=== PATIENT | male | born 1950 | race Caucasian/White ===

== ENCOUNTER → 2016-10-03 | Outpatient (CLI) | payer MEDICARE ==
[2016-10-03 07:57] LABS: Basophils # (A) 0.1 k/uL (0-0.2); Basophils % (A) 1 %; CH 32.3; CHCM 33.2; Eosinophils # (A) 0.3 k/uL (0-0.7); Eosinophils % (A) 3 %; HCT 52.3 % (39.0-53.0); HDW 2.14; HGB 17.6 gm/dL (13.0-17.5); Luc # (Auto) 0.21; Luc % (Auto) 2; Lymphocytes # (A) 2.6 k/uL (1.0-4.8); Lymphocytes % (A) 30 %; MCH 32.9 pg (25.0-35.0); MCHC 33.7 g/dL (31.0-37.0); MCV 97.8 fL (80.0-100.0); Mean Platelet Volume 8.8; Monocytes # (A) 0.6 k/uL (0-1.0); Monocytes % (A) 6 %; Neutrophils # (A) 5.2 k/uL (1.3-7.7); Neutrophils % (A) 58 %; RBC 5.35 m/uL (4.30-5.90); RDW 12.7 % (11.5-15.5); WBC 8.9 k/uL (3.8-10.6); WBC (Perox) 8.91
[2016-10-03 10:32] LABS: Hemoglobin A1C 5.1 % (4.2-6.1)
[2016-10-03 10:45] LABS: ALT 31 U/L (21-72); AST 24 U/L (17-59); Alkaline Phosphatase 83 U/L (38-126); Anion Gap 9 mmol/L; Blood Urea Nitrogen 11 mg/dL (9-20); Calcium 9.3 mg/dL (8.4-10.2); Carbon Dioxide 25 mmol/L (22-30); Chloride 106 mmol/L (98-107); Cholesterol 180 mg/dL (<200); Glucose 84 mg/dL (74-99); HDL Cholesterol 39 mg/dL (40-60); Non-African American GFR(MDRD) >60 (>60 ml/min/1.73 sqM); Potassium 4.6 mmol/L (3.5-5.1); Sodium 140 mmol/L (137-145); Total Bilirubin 0.6 mg/dL (0.2-1.3); Triglycerides 251 mg/dL (<150)
== END | disposition home or self-care (01) ==
LOC: LABWHC1 06:58
PROVIDERS: ATTEND Internal Medicine Critical Care Medicine
DX: Z00.00 Encounter for general adult medical examination without abnormal findings (principal); E78.5 Hyperlipidemia, unspecified; E55.9 Vitamin D deficiency, unspecified; Z12.5 Encounter for screening for malignant neoplasm of prostate
CPT/HCPCS: 84439; 80061; 80053; 83036; 84443; 85025; 82306; 36415; G0103

== ENCOUNTER 2017-03-09 20:24 | Emergency (ER) | payer MEDICARE ==
[2017-03-09 20:45] VITALS: TEMP 98
--- NOTE | 2017-03-09 21:00 | XR ---
EXAMINATION TYPE: XR chest 2V DATE OF EXAM: 03/09/2017 COMPARISON: NONE HISTORY: Concern for swallowing a chicken bone. TECHNIQUE: Frontal and lateral views of the chest are obtained. FINDINGS: There is no focal air space opacity, pleural effusion, or pneumothorax seen. The cardiac silhouette size is within normal limits. The osseous structures are intact. IMPRESSION: No acute cardiopulmonary process. No radiopaque foreign body.
--- NOTE | 2017-03-09 21:03 | XR ---
EXAMINATION TYPE: XR soft tissue neck DATE OF EXAM: 03/09/2017 COMPARISON: NONE HISTORY: Concern for swallowing a tic and bone TECHNIQUE: Frontal and lateral radiographs of the cervical spine were obtained. FINDINGS: Hyoid and thyroid calcifications are seen. Additionally elongated calcification is seen wit hin the prevertebral soft tissues at the level C6-C7 and may represent a foreign body or vascular mary ellen cification. This is not reproduced on the frontal image. Degenerative disc disease is also seen of th e cervical spine. No prevertebral soft tissue swelling. IMPRESSION: Questionable foreign body at the level C6-C7. CT neck could be performed for further eval uation.
--- NOTE | 2017-03-09 21:16 | ED ---
General Adult HPI - General Chief complaint: Skin/Abscess/Foreign Body Stated complaint: FB in throat Time Seen by Provider: 03/09/17 20:37 Source: patient Mode of arrival: ambulatory Limitations: no limitations - History of Present Illness Initial comments: This is a [age] male with no past medical history who presents emergency department for possible foreign body in his esophagus. The patient states he was eating chicken and felt a sharp sensation in his throat. He was concerned for a chicken bone. He states that he was able to swallow piece of bread afterwards however still had a sensation of pain when he swallowed so decided to come emergency department. He is handling his secretions well. He does not have any shortness of breath or any distress. No other complaints. - Related Data Home Medications Medication Instructions Recorded Confirmed Multivitamins, Thera [Multivitamin 1 tab PO DAILY 03/09/17 03/09/17 (formulary)] Allergies Allergy/AdvReac Type Severity Reaction Status Date / Time No Known Allergies Allergy Verified 07/14/14 09:21 Review of Systems ROS Statement: Those systems with pertinent positive or pertinent negative responses have been documented in the HPI. ROS Other: All systems not noted in ROS Statement are negative. Past Medical History Past Medical History: No Reported History History of Any Multi-Drug Resistant Organisms: None Reported Past Surgical History: Tonsillectomy Additional Past Surgical History / Comment(s): Plastic surgery right side of face at 6y.o. Past Anesthesia/Blood Transfusion Reactions: No Reported Reaction Past Psychological History: No Psychological Hx Reported Smoking Status: Current every day smoker Past Alcohol Use History: None Reported Past Drug Use History: None Reported General Exam - General Exam Comments Initial Comments: Constitutional: [Awake alert] [Appears comfortable] Head: [Normocephalic atraumatic] Eyes: [no conjunctival injection] [No scleral icterus] [EOMI] Neck: [No JVD] [Supple], points to the level of the manubrium for where he feels his form body is Heart: [Regular rate rhythm] [normal S1-S2] [no murmurs] Lungs: [Clear to auscultation bilaterally] [No wheezing] [No rales] Abdomen: [Soft] [nondistended] [nontender] Extremities: [Non edematous] [DP pulses intact] [Radial pulses intact] Neuro: [A&Ox3] [No focal neurologic deficits] Psych: [Appropriate mood and affect] Limitations: no limitations Course Vital Signs 03/09/17 03/09/17 20:40 22:00 Temperature 98.0 F Pulse Rate 83 77 Respiratory 16 18 Rate Blood Pressure 154/81 153/84 O2 Sat by Pulse 97 96 Oximetry - Reevaluation(s) Reevaluation #1: 03/09/17 21:[address] Dodge about x-ray findings of possible foreign body. He stated he wanted to have the endo team come in. Patient updated Medical Decision Making - Medical Decision Making This is a 67-year-old male came to the emergency department for suspected esophageal foreign body. X-rays showed possible foreign body of C6-C7 position. Dr. Dodge came in and performed an EGD at bedside and removed a chicken bone from the patient's esophagus. The patient had a slight cough after the procedure however otherwise felt improved. Patient was discharged home and told to follow-up with Dr. Dodge as needed. Can return emergency Department also as needed. All questions were answered. Disposition Clinical Impression: Esophageal foreign body Disposition: HOME SELF-CARE Condition: Stable Instructions: Esophageal Foreign Body (ED) Referrals: Eliseo Lazo DO [Primary Care Provider] - 1-2 days Neil Pascual MD [STAFF PHYSICIAN] - 1-2 days
[2017-03-09 22:22] VITALS: RESP 18
[2017-03-09] MEDS ORDERED: LIDOCAINE 1% INJ 10MG/ML (20 ML MDV) ONE (22:31)
[2017-03-09] MEDS ORDERED: PROPOFOL 10 MG/ML 20 ML VIAL IV ONE (22:31)
[2017-03-09] MEDS ORDERED: LACTATED RINGERS 1,000 ML IV ONE (22:32)
--- NOTE | 2017-03-09 23:27 | P.PCN ---
Date of Procedure: 03/09/17 Preoperative Diagnosis: Postoperative Diagnosis: Procedure(s) Performed: Procedure: Esophagogastroduodenoscopy and removal of esophageal foreign body. Preoperative diagnosis: Esophageal foreign body. Postoperative diagnosis: 1. A piece of chicken meat caught at the cricopharyngeus and advanced to the stomach and multiple fragments with the aid of the endoscope. 2. Wishbone caught at the same level just above the vocal cords captured with the rat tooth forceps and withdrawn by withdrawing the endoscope. Preparation sedation: Was provided by anesthesia. Brief clinical history: The patient is a 67-year-old male who came into the emergency room because of abnormal sensation he had in his throat while eating chicken. The patient felt like something was caught in his esophagus. He was able to swallow his secretions but the sensation was persistent and painful. No airway issues. X-ray performed suggested possible foreign body in the proximal esophagus. Procedure: With the patient on his left lateral decubitus position and after informed consent and adequate sedation, I passed the Olympus-GIF 160 video upper endoscope into the oropharynx down to the hypopharynx and through the area of the cricopharyngeus and into the esophagus. There was a piece of chicken caught at the cricopharyngeus level which I was able to advance with the endoscope in multiple fragments and pass it into the stomach. There was a hiatal hernia. The stomach has food debris and secretions and the pieces of meat that were just passed with the aid of the endoscope. No obvious abnormalities were seen the stomach. Pyloric channel, duodenal bulb, post bulbar area and descending duodenum did not show any obvious abnormalities either. The endoscope was withdrawn and I spent time inspecting the hypopharynx and I could see a piece of bone partially caught at the cricopharyngeus with a transverse part of it just at the level of the vocal cords visible in the hypopharynx. I captured that with the rat tooth forceps and withdrew it by withdrawing the endoscope without difficulty. I repeated the inspection of the esophagus including the area of the cricopharyngeus as well as the hypopharynx before the examination was completed. The patient tolerated the procedure. Plan: The patient was reassured. Will keep on clear liquid diet for the next 12 -24 hours that he can advance his diet as tolerated. Further plans based on his course. He will follow up with you as planned and he will call me if he has any problems. Implants: Indications for Procedure: Operative Findings: Description of Procedure:
[2017-03-10] MEDS ORDERED: CALCIUM CARBONATE 500 MG CHEWABLE PO STA (00:07)
[2017-03-10 02:34] VITALS: BP 118/71; PULSE 77
== END 2017-03-10 00:30 | disposition home or self-care (01) ==
LOC: EC 20:24
DX: T18.128A Food in esophagus causing other injury, initial encounter (principal); F17.200 Nicotine dependence, unspecified, uncomplicated; Z79.899 Other long term (current) drug therapy
CPT/HCPCS: 99283; 70360; 71020; 43247; J2001; J2704

== ENCOUNTER → 2017-04-09 | Outpatient (CLI) | payer MEDICARE | END | disposition home or self-care (01) | LOC: LABWHC1 07:07 | PROVIDERS: ATTEND Urology | DX: R97.20 Elevated prostate specific antigen [PSA] (principal) | CPT/HCPCS: 36415; 84153 ==

== ENCOUNTER → 2017-10-06 | Outpatient (CLI) | payer MEDICARE | END | disposition home or self-care (01) | LOC: LABWHC1 15:22 | PROVIDERS: ATTEND Urology | DX: R97.20 Elevated prostate specific antigen [PSA] (principal) | CPT/HCPCS: 36415; 84153 ==

== ENCOUNTER → 2017-10-30 | Outpatient (CLI) | payer MEDICARE ==
[2017-10-30 08:20] LABS: Basophils % (A) 0 %; Eosinophils # (A) 0.3 k/uL (0-0.7); Eosinophils % (A) 3 %; HCT 51.4 % (39.0-53.0); HGB 16.8 gm/dL (13.0-17.5); Lymphocytes # (A) 2.7 k/uL (1.0-4.8); Lymphocytes % (A) 32 %; MCH 31.2 pg (25.0-35.0); MCHC 32.7 g/dL (31.0-37.0); MCV 95.6 fL (80.0-100.0); Mean Platelet Volume 8.3; Monocytes # (A) 0.6 k/uL (0-1.0); Monocytes % (A) 7 %; Neutrophils # (A) 4.8 k/uL (1.3-7.7); Neutrophils % (A) 56 %; Platelet Count 220 k/uL (150-450); RBC 5.38 m/uL (4.30-5.90); RDW 12.5 % (11.5-15.5); WBC 8.5 k/uL (3.8-10.6)
[2017-10-30 08:32] LABS: ALT 21 U/L (21-72); AST 22 U/L (17-59); Albumin 3.7 g/dL (3.5-5.0); Alkaline Phosphatase 76 U/L (38-126); Anion Gap 12 mmol/L; Blood Urea Nitrogen 15 mg/dL (9-20); Carbon Dioxide 24 mmol/L (22-30); Chloride 105 mmol/L (98-107); Cholesterol 171 mg/dL (<200); Glucose 85 mg/dL (74-99); HDL Cholesterol 35 mg/dL (40-60); LDL Cholesterol,Calculated 89 mg/dL (0-99); Potassium 4.4 mmol/L (3.5-5.1); Sodium 141 mmol/L (137-145); Total Bilirubin 0.6 mg/dL (0.2-1.3); Total Protein 6.7 g/dL (6.3-8.2); Triglycerides 237 mg/dL (<150)
[2017-10-30 17:48] LABS: Hemoglobin A1C 4.9 % (4.0-6.0)
== END | disposition home or self-care (01) ==
LOC: LABWHC1 07:40
PROVIDERS: ATTEND Internal Medicine Critical Care Medicine
DX: Z00.00 Encounter for general adult medical examination without abnormal findings (principal); J44.9 Chronic obstructive pulmonary disease, unspecified; E78.5 Hyperlipidemia, unspecified; E55.9 Vitamin D deficiency, unspecified
CPT/HCPCS: 36415; 80053; 80061; 82306; 83036; 84439; 84443; 85025

== ENCOUNTER → 2017-12-23 | Outpatient (CLI) | payer MEDICARE ==
[2017-12-23 10:24] LABS: Blood Urea Nitrogen 14 mg/dL (9-20)
== END | disposition home or self-care (01) ==
LOC: LABWHC1 09:06
PROVIDERS: ATTEND Urology
DX: C61 Malignant neoplasm of prostate (principal)
CPT/HCPCS: 36415; 82565; 84520

== ENCOUNTER → 2018-05-12 | Outpatient (CLI) | payer MEDICARE ==
[2018-05-12 11:31] LABS: Basophils % (A) 1 %; Eosinophils # (A) 0.1 k/uL (0-0.7); Eosinophils % (A) 2 %; HCT 46.8 % (39.0-53.0); HGB 15.4 gm/dL (13.0-17.5); Lymphocytes # (A) 1.5 k/uL (1.0-4.8); Lymphocytes % (A) 21 %; MCH 31.9 pg (25.0-35.0); MCV 96.7 fL (80.0-100.0); Mean Platelet Volume 8.6; Monocytes # (A) 0.5 k/uL (0-1.0); Monocytes % (A) 7 %; Neutrophils # (A) 4.8 k/uL (1.3-7.7); Neutrophils % (A) 68 %; Platelet Count 216 k/uL (150-450); RBC 4.84 m/uL (4.30-5.90); RDW 13.3 % (11.5-15.5)
[2018-05-12 11:55] LABS: Anion Gap 11 mmol/L; Blood Urea Nitrogen 20 mg/dL (9-20); Calcium 9.3 mg/dL (8.4-10.2); Carbon Dioxide 23 mmol/L (22-30); Chloride 105 mmol/L (98-107); Glucose 82 mg/dL (74-99); Sodium 139 mmol/L (137-145)
[2018-05-12 11:59] LABS: Potassium 4.8 mmol/L (3.5-5.1)
== END | disposition home or self-care (01) ==
LOC: LABWHC1 09:48
PROVIDERS: ATTEND Urology
DX: Z01.818 Encounter for other preprocedural examination (principal); Z01.812 Encounter for preprocedural laboratory examination; C61 Malignant neoplasm of prostate; R31.0 Gross hematuria; R53.83 Other fatigue; Z79.899 Other long term (current) drug therapy
CPT/HCPCS: 80048; 85025; 87086; 93005

== ENCOUNTER 2018-05-20 06:09 | Day surgery (SDC) | payer MEDICARE ==
[2018-05-12 08:59] VITALS: BMI 30.3
[~2018-05-20 06:09] MED LIST: DEXAMETHASONE SOD PHOSPHATE 10 MG/ML 1 ML VIAL IV ONE; HYDROmorphone 1 MG/ML 1 ML SYRINGE IVP PRN; LEVOFLOXACIN 500MG-D5W PMX 500 MG in DEXTROSE/WATER 1 100ML.BAG IVPB ONE; LIDOCAINE 1% 20 ML VIAL (10MG/ML) FOR IV START INTRADERMA PRN; ONDANSETRON 4 MG/2 ML VIAL IVP ONE; SCOPOLAMINE 1.5MG/72HR PATCH TRANSDERM ONE
--- NOTE | 2018-05-20 06:18 | P.GSHP ---
History of Present Illness H&P Date: 05/20/18 Chief Complaint: Prostate Cancer The patient is a 68 year old white male with a family history of prostate cancer. His PSA level increased to 3.98. In view of this, he underwent a prostate ultrasound with biopsies, revealing a prostate volume of 41.1 mL. 9 of 12 biopsies revealed [place] 7 (3+4) prostate cancer. Treatment options were reviewed in detail, consisting primarily of radical prostatectomy or radiation therapy. He elected to be treated with combination radiation therapy , and received androgen deprivation therapy for downsizing. He has completed IMRT and now comes for brachytherapy. - Genitourinary (Male) Genitourinary: Reports urinary frequency Past Medical History Past Medical History: No Reported History Additional Past Medical History / Comment(s): prostate CA dx radiation tx-last radiation-last tx Apr.,pericarditis approx 25 yrs ago History of Any Multi-Drug Resistant Organisms: None Reported Past Surgical History: Tonsillectomy Additional Past Surgical History / Comment(s): Plastic surgery right side of face at 6y.o. Past Anesthesia/Blood Transfusion Reactions: No Reported Reaction Additional Past Anesthesia/Blood Transfusion Reaction / Comment(s): no hx blood transfusion Smoking Status: Current every day smoker - Past Family History Mother Family Medical History: Cancer Additional Family Medical History / Comment(s): breast Father Family Medical History: Cancer Additional Family Medical History / Comment(s): prostate Medications and Allergies Home Medications Medication Instructions Recorded Confirmed Type Calcium Carbonate/Vitamin D3 1 each PO BID 05/12/18 05/12/18 History [Calcium 600-Vit D3 400 Caplet] Ibuprofen/Diphenhydramine Cit 2 each PO HS PRN 05/12/18 05/12/18 History [Motrin Pm Caplet] Allergies Allergy/AdvReac Type Severity Reaction Status Date / Time shellfish derived [Shellfish] Allergy Rash/Hives Verified 05/12/18 08:45 Surgical - Exam - General well developed, well nourished, no distress - Respiratory normal respiratory effort - Abdomen Abdomen: soft, non tender, no guarding, no rigid, no rebound - Genitourinary normal penis with no external lesions, testicles non-tender - Rectum Rectum: normal sphincter tone, no masses, other (Prostate moderately enlarged and smooth) - Psychiatric oriented to time, oriented to person, oriented to place, speech is normal, memory intact Assessment and Plan (1) Adenocarcinoma of prostate Status: Acute Code(s): C61 - MALIGNANT NEOPLASM OF PROSTATE SNOMED Code(s): 229165232 Plan: The rationale for combination radiation therapy has been reviewed in detail with the patient. The brachytherapy procedure has been reviewed, as well as the anticipated perioperative course and potential risks. These include postoperative perineal discomfort, anesthesia, bleeding, urinary retention, seed migration, urethral stricture, and irritative voiding symptoms which may fail to resolve completely.
[2018-05-20] MEDS: LACTATED RINGERS 1,000 ML IV SCH ×4 (06:54→14:40)
[2018-05-20] MEDS: MIDAZOLAM 2 MG/2 ML VIAL IV ONE ×2 (07:05→07:13)
[2018-05-20] MEDS ORDERED: DEXAMETHASONE SOD PHOS (MDV) 100 MG/10 ML VIAL ONE (07:24)
[2018-05-20] MEDS ORDERED: LIDOCAINE 1% INJ 10MG/ML (20 ML MDV) ONE (07:24)
[2018-05-20] MEDS ORDERED: SUCCINYLCHOLINE CHLORIDE VIAL 200 MG/10 ML VIAL IV ONE (07:24)
[2018-05-20] MEDS ORDERED: GLYCOPYRROLATE 0.2 MG/ML 2 ML VIAL ONE (07:24)
[2018-05-20] MEDS ORDERED: ROCURONIUM BROMIDE 10 MG/ML 10 ML VIAL IV ONE (07:24)
[2018-05-20] MEDS ORDERED: PHENYLEPHRINE-0.9% NACL SYG 1 MG/10 ML SYRINGE ONE (07:24)
[2018-05-20] MEDS ORDERED: PROPOFOL 10 MG/ML 20 ML VIAL IV ONE (07:24)
[2018-05-20] MEDS ORDERED: NEOSTIGMINE 1 MG/ML 10 ML VIAL ONE (07:24)
[2018-05-20] MEDS ORDERED: fentaNYL (PF) 50 MCG/ML 2 ML AMP ONE (07:24)
[2018-05-20] MEDS ORDERED: LACTATED RINGERS 1,000 ML IV ONE (09:01)
[2018-05-20 09:56] VITALS: TEMP 98.7
--- NOTE | 2018-05-20 10:08 | P.OP ---
Date of Procedure: 05/20/18 Preoperative Diagnosis: Adenocarcinoma of the Prostate, Clinical Stage TIc NX M0 Postoperative Diagnosis: Same Procedure(s) Performed: Prostate Brachytherapy Anesthesia: NIKOLAS Surgeon: Richard Delacruz Community Health Program Representative #1: Luis Dupree Community Health Program Representative #2: Cristhian Lassiter Estimated Blood Loss (ml): 10 IV fluids (ml): 900 Pathology: none sent Condition: stable Disposition: PACU Indications for Procedure: The patient is a 68-year-old white male with recently diagnosed high-volume Bas[place] 3+4 adenocarcinoma of the prostate. He has elected to be treated with combination radiation therapy. He completed IMRT and now comes for brachytherapy. Operative Findings: 59 I-125 sources implanted via 20 needles. Description of Procedure: The patient was taken to the operating room and placed in the dorsolithotomy position, with his legs supported in Chandler stirrups. The external genitalia was prepped and draped sterilely. A Keller catheter was placed. The Siemens transrectal ultrasound probe was placed intrarectally, and the probe was then secured to the stabilizing brackets. The prostate was imaged on both the axial and sagittal planes. The 0 point was identified, and the position of the probe was manipulated until the prostate images were identical to those of the volume study. Each individual treatment needle was then placed through the perineum and into the prostate, starting with the most anterior needles and working in a posterior direction. The placement of each needle was guided by ultrasound, on both the axial and sagittal planes, to ensure accurate placement of the sources. A total of 59 I-125 sources were implanted via 20 needles. An additional 4 sources were ordered but not used. Real-time dosimetry was utilized throughout the procedure to assess radiation dosage. Once the procedure was completed, the Keller catheter was removed along with the ultrasound probe. Fluoroscopic imaging revealed a symmetrical distribution of sources. The 16-Tajik flexible cystoscope was used to perform cystoscopy. The anterior urethra appeared normal. The prostatic urethra showed evidence of partial obstruction. No mucosal perforations were seen within the urethra, nor were any I-125 sources seen. The bladder was examined in its entirety. Both ureteral orifices appeared normal. No tumors or foreign bodies were seen. There was no evidence of mucosal perforation of the bladder, and no I-125 sources were seen. The cystoscope was removed, and the Keller catheter was used to drain the bladder. The patient tolerated the procedure well was taken to the recovery room in stable condition.
--- NOTE | 2018-05-20 10:49 | FL ---
EXAMINATION TYPE: FL fluoroscopy <1hr DATE OF EXAM: 05/20/2018 HISTORY: Flouroscopy time 3 seconds of fluoroscopy provided. IMPRESSION: 1. Fluoroscopy time.
--- NOTE | 2018-05-20 11:42 | XR ---
EXAMINATION TYPE: XR pelvis AP view DATE OF EXAM: 05/20/2018 COMPARISON: NONE HISTORY: Postop right The osseous structures are intact and the joint spaces are preserved. No acute fracture is seen. Vi sualized bowel gas pattern is nonspecific. Postprocedural metallic densities are seen overlying the region of the prostate. Focal sclerotic areas involving the left femur and inferior pubic ramus is no nspecific. Spina bifida occulta at the S1 level. IMPRESSION: 1. No acute fracture.
[2018-05-20] MEDS ORDERED: TAMSULOSIN 0.4 MG CAP.ER.24H PO STA (12:23)
[2018-05-20 13:30] VITALS: BP 145/74; PULSE 76; RESP 16
--- NOTE | 2018-05-20 17:54 | P.OP ---
Date of Procedure: 05/20/18 Preoperative Diagnosis: Prostate adenocarcioma kasia 7 Postoperative Diagnosis: same Procedure(s) Performed: LDR brachytherapy needle insertion with cysto Anesthesia: MAC Surgeon: Richard Delacruz Motor Operator #1: Luis Dupree Motor Operator #2: Cristhian Lassiter Estimated Blood Loss (ml): 10 IV fluids (ml): 900 Pathology: none sent Condition: stable Disposition: PACU Indications for Procedure: Patient with kasia 7 prostate adenocarcinoma elected to undergo EBRT + brachytherapy boost. Description of Procedure: see description from same day - Dr. Delacruz
== END 2018-05-20 14:30 | disposition home or self-care (01) ==
LOC: OR 06:09
PROVIDERS: ATTEND Urology
DX: C61 Malignant neoplasm of prostate (principal); Z92.3 Personal history of irradiation; F17.290 Nicotine dependence, other tobacco product, uncomplicated; Z80.42 Family history of malignant neoplasm of prostate; Q76.0 Spina bifida occulta; Z91.013 Allergy to seafood
CPT/HCPCS: 72170; 76000; 55875; 77778; J2250; J0330; J1100 ×2; J2710; J2405; J1956; J2001; J3010; J2370; J2704

== ENCOUNTER → 2018-08-19 | Outpatient (CLI) | payer MEDICARE | LOC: LABWHC1 10:43 | PROVIDERS: ATTEND Radiology Radiation Oncology | DX: C61 Malignant neoplasm of prostate (principal) | CPT/HCPCS: 36415; 84153 ==

== ENCOUNTER → 2018-10-13 | Outpatient (CLI) | payer MEDICARE ==
[2018-10-13 08:49] LABS: Basophils % (A) 1 %; Eosinophils # (A) 0.3 k/uL (0-0.7); Eosinophils % (A) 4 %; HGB 14.9 gm/dL (13.0-17.5); Lymphocytes # (A) 1.7 k/uL (1.0-4.8); Lymphocytes % (A) 27 %; MCH 32.4 pg (25.0-35.0); MCHC 33.2 g/dL (31.0-37.0); MCV 97.7 fL (80.0-100.0); Monocytes # (A) 0.5 k/uL (0-1.0); Monocytes % (A) 7 %; Neutrophils # (A) 3.8 k/uL (1.3-7.7); Neutrophils % (A) 60 %; Platelet Count 205 k/uL (150-450); RBC 4.61 m/uL (4.30-5.90); RDW 12.6 % (11.5-15.5); WBC 6.4 k/uL (3.8-10.6)
[2018-10-13 16:55] LABS: Vitamin D 25 Hydroxy 36.8 ng/mL (30.0-100.0)
[2018-10-13 17:09] LABS: Albumin 4.1 g/dL (3.80-4.90); Albumin/Globulin Ratio 1.78 (1.60-3.17); Calcium 9.3 mg/dL (8.7-10.3); Globulin 2.3 g/dL (1.6-3.3); LDL Cholesterol,Calculated 97.4 mg/dL (0.0-131.0); Potassium 4.2 mmol/L (3.5-5.5); Total Bilirubin 0.4 mg/dL (0.3-1.2); Total Protein 6.4 g/dL (6.2-8.2); VLDL Calculation 36.6 mg/dL (5.00-40.00)
[2018-10-13 17:17] LABS: T4, Free (Free Thyroxine) 1.2 ng/dL (0.80-1.80)
[2018-10-13 18:00] LABS: Hepatitis A Antibody IgM Non-Reactive (Non-Reactive); Hepatitis B Core IgM Non-Reactive (Non-Reactive)
[2018-10-13 18:59] LABS: Hemoglobin A1C 5.4 % (4.0-6.0)
== END ==
LOC: LABWHC1 07:36
PROVIDERS: ATTEND Urology
DX: E16.2 Hypoglycemia, unspecified (principal); E78.5 Hyperlipidemia, unspecified; C61 Malignant neoplasm of prostate; J44.9 Chronic obstructive pulmonary disease, unspecified; E55.9 Vitamin D deficiency, unspecified; Z91.013 Allergy to seafood; Z20.5 Contact with and (suspected) exposure to viral hepatitis
CPT/HCPCS: 36415; 80053; 80061; 80074; 82306; 83036; 84153; 84403; 84439; 84443; 85025

== ENCOUNTER → 2019-04-06 | Outpatient (CLI) | payer MEDICARE | END | disposition home or self-care (01) | LOC: LABWHC1 09:22 | PROVIDERS: ATTEND Urology | DX: C61 Malignant neoplasm of prostate (principal) | CPT/HCPCS: 36415; 84153; 84403 ==

== ENCOUNTER → 2019-04-29 | Outpatient (CLI) | payer MEDICARE ==
[2019-04-29 11:17] LABS: Basophils % (A) 1 %; Eosinophils # (A) 0.1 k/uL (0-0.7); Eosinophils % (A) 2 %; HCT 45.6 % (39.0-53.0); HGB 15.4 gm/dL (13.0-17.5); Lymphocytes # (A) 1.5 k/uL (1.0-4.8); Lymphocytes % (A) 20 %; MCH 32.5 pg (25.0-35.0); MCHC 33.7 g/dL (31.0-37.0); MCV 96.4 fL (80.0-100.0); Mean Platelet Volume 8.5; Monocytes # (A) 0.5 k/uL (0-1.0); Monocytes % (A) 7 %; Neutrophils # (A) 5.1 k/uL (1.3-7.7); Neutrophils % (A) 69 %; Platelet Count 202 k/uL (150-450); RBC 4.73 m/uL (4.30-5.90); RDW 12.5 % (11.5-15.5); WBC 7.4 k/uL (3.8-10.6)
[2019-04-29 16:09] LABS: Vitamin D 25 Hydroxy 36.2 ng/mL (30.0-100.0)
[2019-04-29 16:45] LABS: African American GFR (CKD) 89.2 (60.0-200.0); Albumin 4.1 g/dL (3.80-4.90); Albumin/Globulin Ratio 1.78 (1.60-3.17); Anion Gap 6.5 mmol/L (4.00-12.00); Calcium 8.9 mg/dL (8.7-10.3); Carbon Dioxide 25.5 mmol/L (21.6-31.8); Chol/HDL Ratio 3.59; Globulin 2.3 g/dL (1.6-3.3); LDL Cholesterol,Calculated 98.4 mg/dL (0.0-131.0); Potassium 4.3 mmol/L (3.5-5.5); Total Bilirubin 0.4 mg/dL (0.3-1.2); Total Protein 6.4 g/dL (6.2-8.2); VLDL Calculation 20.6 mg/dL (5.00-40.00)
[2019-04-29 16:53] LABS: T4, Free (Free Thyroxine) 1.1 ng/dL (0.80-1.80)
[2019-04-29 17:12] LABS: Hepatitis A Antibody IgM Non-Reactive (Non-Reactive); Hepatitis B Core IgM Non-Reactive (Non-Reactive); Hepatitis B Surface Antigen Non-Reactive (Non-Reactive); Hepatitis C IgG Antibody Non-Reactive (Non-Reactive)
[2019-04-29 21:13] LABS: Hemoglobin A1C 5.2 % (4.0-6.0)
== END | disposition home or self-care (01) ==
LOC: LABWHC1 10:06
PROVIDERS: ATTEND Internal Medicine Critical Care Medicine
DX: E55.9 Vitamin D deficiency, unspecified (principal); Z79.899 Other long term (current) drug therapy
CPT/HCPCS: 36415; 80053; 80061; 80074; 82306; 83036; 84439; 84443; 85025

== ENCOUNTER → 2019-05-11 | Outpatient (CLI) | payer MEDICARE ==
--- NOTE | 2019-05-11 15:26 | CTL ---
EXAMINATION TYPE: CT Low Dose Lung DATE OF EXAM ORDERED: 05/11/2019 HISTORY: Personal history tobacco use. Lung cancer screening CT DLP: 136.3 mGycm Automated exposure control for dose reduction was used. SCREENING VISIT: 1 COMPARISON: CT urogram dated 04/23/2011 TECHNIQUE: Low dose computed tomography scan was performed through the chest at 1 mm thick sections a nd reconstructed images in the coronal plane at [address] DIAGNOSTIC QUALITY: Satisfactory FINDINGS: LUNG NODULES: None. There is a calcified nodule present on axial image #183 in the right upper lobe measuring only 2 mm i n size LUNGS: COPD: Severity: Moderate in the upper lobes Fibrosis: Severity: Mild Lymph nodes: Within normal limits Other findings: Suspect some mild prominence of the pulmonary artery, consider pulmonary artery hyper tension RIGHT PLEURAL SPACE: Effusion: None Calcification: None Thickening: None Pneumothorax: None LEFT PLEURAL SPACE: Effusion: None Calcification: None Thickening: None Pneumothorax: None HEART: Heart Size: Small Coronary calcification: Mild Pericardial effusion: None OTHER FINDINGS: Upper abdomen: Within normal limits. Bony thorax: Unremarkable, there is thoracic spondylosis present. Lumbar spine shows a focal lucency within the right of midline at the L2 vertebral body which may represent a large geode. Supraclavicular region: Unremarkable as seen Other: IMPRESSION: Benign chest, additional findings above involving the L2 vertebral body of questionable c linical significance FOLLOW UP CT CHEST RECOMMENDATION: [address] LUNG RAD: BI-RADS 2
== END ==
LOC: RADCTMAIN 12:14
PROVIDERS: ATTEND Internal Medicine Critical Care Medicine
DX: Z12.2 Encounter for screening for malignant neoplasm of respiratory organs (principal); Z87.891 Personal history of nicotine dependence

== ENCOUNTER → 2020-01-12 | Outpatient (CLI) | payer MEDICARE ==
[2020-01-12 09:35] LABS: Basophils % (A) 0 %; Eosinophils # (A) 0.2 k/uL (0-0.7); Eosinophils % (A) 2 %; HCT 50.9 % (39.0-53.0); Lymphocytes # (A) 1.6 k/uL (1.0-4.8); Lymphocytes % (A) 22 %; MCH 31.5 pg (25.0-35.0); MCHC 31.5 g/dL (31.0-37.0); MCV 99.9 fL (80.0-100.0); Mean Platelet Volume 8.3; Monocytes # (A) 0.5 k/uL (0-1.0); Monocytes % (A) 7 %; Neutrophils # (A) 4.7 k/uL (1.3-7.7); Neutrophils % (A) 66 %; Platelet Count 210 k/uL (150-450); RBC 5.09 m/uL (4.30-5.90); RDW 12.8 % (11.5-15.5)
[2020-01-12 17:36] LABS: Hemoglobin A1C 5.2 % (4.0-6.0)
[2020-01-12 18:01] LABS: African American GFR (CKD) 89.2 (60.0-200.0); Albumin 4.1 g/dL (3.80-4.90); Albumin/Globulin Ratio 1.86 (1.60-3.17); Anion Gap 7.3 mmol/L (4.00-12.00); Calcium 8.9 mg/dL (8.7-10.3); Carbon Dioxide 22.7 mmol/L (21.6-31.8); Chol/HDL Ratio 4.51; Globulin 2.2 g/dL (1.6-3.3); Potassium 4.1 mmol/L (3.5-5.5); Total Bilirubin 0.4 mg/dL (0.2-1.2); Total Protein 6.3 g/dL (6.2-8.2)
[2020-01-12 18:09] LABS: Prolactin 6.8 ng/mL (2.1-17.7); T4, Free (Free Thyroxine) 1.2 ng/dL (0.80-1.80)
[2020-01-12 18:10] LABS: Follicle Stimulating Hormone 23.5 mIU/mL
[2020-01-12 18:21] LABS: C Reactive Protein, High Sens 6.16 mg/L (0.000-3.000)
[2020-01-12 19:40] LABS: Luteinizing Hormone 11.4 mIU/mL
== END | disposition home or self-care (01) ==
LOC: LABWHC1 08:09
PROVIDERS: ATTEND Internal Medicine Critical Care Medicine
DX: C61 Malignant neoplasm of prostate (principal); R53.83 Other fatigue; E07.9 Disorder of thyroid, unspecified; R23.2 Flushing; E78.5 Hyperlipidemia, unspecified; E55.9 Vitamin D deficiency, unspecified; E66.9 Obesity, unspecified
CPT/HCPCS: 36415; 80053; 80061; 82306; 82533; 82672; 83001; 83002; 83036; 84146; 84153; 84403; 84439; 84443; 84481; 85025; 86141

== ENCOUNTER 2020-01-30 08:19 | Day surgery (SDC) | payer MEDICARE ==
[2020-01-26 12:13] VITALS: BMI 31.1
[~2020-01-30 08:19] MED LIST changes: -DEXAMETHASONE SOD PHOSPHATE 10 MG/ML 1 ML VIAL IV ONE; -HYDROmorphone 1 MG/ML 1 ML SYRINGE IVP PRN; +LACTATED RINGERS 1,000 ML IV SCH; -LEVOFLOXACIN 500MG-D5W PMX 500 MG in DEXTROSE/WATER 1 100ML.BAG IVPB ONE; -LIDOCAINE 1% 20 ML VIAL (10MG/ML) FOR IV START INTRADERMA PRN; -ONDANSETRON 4 MG/2 ML VIAL IVP ONE; -SCOPOLAMINE 1.5MG/72HR PATCH TRANSDERM ONE
[2020-01-30 08:39] VITALS: TEMP 97.8
[2020-01-30] MEDS ORDERED: LACTATED RINGERS 1,000 ML IV ONE (08:50)
[2020-01-30] MEDS ORDERED: LIDOCAINE 1% (10MG/ML) FOR IV START INTRADERMA ONE (08:51)
[2020-01-30] MEDS ORDERED: PROPOFOL 10 MG/ML 20 ML VIAL IV ONE (09:22)
[2020-01-30] MEDS ORDERED: SODIUM CHLORIDE 0.9% 500 ML 500 ML IV ONE (09:40)
--- NOTE | 2020-01-30 09:57 | P.PCN ---
Date of Procedure: 01/30/20 Description of Procedure: BRIEF HISTORY: Patient is a 70-year-old male presenting for outpatient colonoscopy for screening for malignant neoplasm colon. Believes his last colonoscopy was 7 years ago. No change in bowel habits, blood per rectum or family history of colon cancer. PROCEDURE PERFORMED: Colonoscopy with polypectomy. PREOPERATIVE DIAGNOSIS: Screening for malignant neoplasm of the colon, last colonoscopy 7 years ago per his recollection and significant for polypectomy. ESTIMATED BLOOD LOSS: Minimal. IV sedation per Anesthesia. PROCEDURE: After informed consent was obtained, the patient, was brought into the endoscopy unit. IV sedation was administered by Anesthesia under continuous monitoring. Digital rectal examination was normal. Initially the Olympus CF-190 flexible video colonoscope was then inserted in the rectum, gradually advanced into the cecum without any difficulty. Careful examination was performed as the scope was gradually being withdrawn. Ileocecal valve and the appendiceal orifice were visualized and appeared normal. Prep was excellent. Mucosa of the cecum, ascending colon, transverse colon, descending colon, sigmoid colon, and rectum appeared normal. Flat 10 mm cecal polyp removed with cold snare polypectomy. Diminutive 2 mm ascending colon polyp removed with cold forcep polypectomy. Diminutive 2 mm transverse colon polyp removed with cold forcep polypectomy. Diminutive 3 mm descending colon polyp removed with cold forcep polypectomy. Diminutive 2 mm sigmoid colon polyp removed with cold forcep polypectomy. A few scattered diverticula noted in the sigmoid colon. Retroflexion was performed in the rectum and no lesions were seen. The patient tolerated the procedure well. IMPRESSION: Flat cecal polyp removed with cold snare polypectomy. 4 diminutive polyps removed from the ascending colon, transverse colon, descending colon and sigmoid with cold forcep polypectomy. Mild sigmoid diverticulosis. RECOMMENDATIONS: Findings of this examination were discussed with the patient and his family. Okay to resume diet. Okay to resume medications. Await pathology from polypectomy. Would recommend repeat colonoscopy in 3 years for high risk colon polyps pending pathology from polypectomy.
[2020-01-30 10:13] VITALS: BP 109/53; PULSE 71; RESP 17
--- NOTE | 2020-02-06 10:07 | CDI ---
Date: 02.06.2020 CDS/Occupational Health And Safety Adviser Name: Albertina Reich Phone: If any questions, call Patrica Casillas Hand Method Lasting Machine Operator at [phone] Patient Name: Lee Mcbride Admit Date: 01.30.20 Discharge Date: 01.30.20 ATTENTION: The [facility] Coding Staff appreciate your assistance in clarifying documentation. Please respond to the clarification below the line at the bottom and electronically sign. The [facility] Coding staff will review the response and follow-up if needed. Please note: Queries are made part of the Legal Health Record. If you have any questions, please contact the Hand Method Lasting Machine Operator. Dear Dr. Grant On the H&P you have written colon CA for family history, but on the OP report you have dictated no family history of Colon CA. Please document whether the pt has a family history of Colon CA. Thank you for your kind consideration. MTDD
== END 2020-01-30 10:29 | disposition home or self-care (01) ==
LOC: ORWHC2ENDO 08:19
PROVIDERS: ATTEND Internal Medicine
DX: Z12.11 Encounter for screening for malignant neoplasm of colon (principal); K63.5 Polyp of colon; D12.2 Benign neoplasm of ascending colon; K57.30 Diverticulosis of large intestine without perforation or abscess without bleeding; E66.3 Overweight; Z68.30 Body mass index [BMI] 30.0-30.9, adult; Z72.0 Tobacco use; Z91.013 Allergy to seafood; Z90.89 Acquired absence of other organs; Z98.890 Other specified postprocedural states; Z86.010 Personal history of colon polyps
CPT/HCPCS: 45385; 45380; 88305; J2704

== ENCOUNTER → 2020-12-06 | Outpatient (CLI) | payer MEDICARE | END | disposition home or self-care (01) | LOC: LABWHC1 07:15 | PROVIDERS: ATTEND Urology | DX: C61 Malignant neoplasm of prostate (principal) | CPT/HCPCS: 36415; 84153 ==

== ENCOUNTER → 2020-12-19 | Outpatient (CLI) | payer MEDICARE | END | disposition home or self-care (01) | LOC: LABWHC1 09:37 | PROVIDERS: ATTEND Urology | DX: C61 Malignant neoplasm of prostate (principal); R97.21 Rising PSA following treatment for malignant neoplasm of prostate | CPT/HCPCS: 36415; 84153 ==

== ENCOUNTER → 2021-05-31 | Outpatient (CLI) | payer MEDICARE ==
[2021-05-31 07:52] LABS: Basophils # (A) 0.1 k/uL (0-0.2); Basophils % (A) 1 %; Eosinophils # (A) 0.2 k/uL (0-0.7); Eosinophils % (A) 2 %; HCT 49.9 % (39.0-53.0); HGB 16.3 gm/dL (13.0-17.5); Lymphocytes # (A) 1.7 k/uL (1.0-4.8); Lymphocytes % (A) 21 %; MCH 32.3 pg (25.0-35.0); MCHC 32.7 g/dL (31.0-37.0); MCV 98.9 fL (80.0-100.0); Mean Platelet Volume 8.3; Monocytes # (A) 0.6 k/uL (0-1.0); Monocytes % (A) 8 %; Neutrophils # (A) 5.6 k/uL (1.3-7.7); Neutrophils % (A) 67 %; Platelet Count 197 k/uL (150-450); RBC 5.05 m/uL (4.30-5.90); RDW 12.3 % (11.5-15.5); WBC 8.3 k/uL (3.8-10.6)
[2021-05-31 08:11] LABS: Calcium 9.1 mg/dL (8.4-10.2); Potassium 4.3 mmol/L (3.5-5.1)
== END | disposition home or self-care (01) ==
LOC: LABPAT 07:01
PROVIDERS: ATTEND Urology
DX: Z01.812 Encounter for preprocedural laboratory examination (principal); C61 Malignant neoplasm of prostate
CPT/HCPCS: 36415; 80048; 85025

== ENCOUNTER 2021-06-06 09:51 | Day surgery (SDC) | payer MEDICARE ==
--- NOTE | 2021-06-04 07:14 | P.GSHP ---
History of Present Illness H&P Date: 06/04/21 Chief Complaint: Recurrent prostate cancer the patient is a 71-year-old white male diagnosed with prostate cancer in November 2017. His PSA level at that time was 3.98. 9 of 12 biopsies showed [place] 7 adenocarcinoma. He elected to be treated with combination radiation therapy and androgen deprivation therapy (ADT). His PSA level became undetectable, but has gradually risen this year from 1.2 in December 2020 to 4.6 in March 2021. An Axumin PET/CT scan showed 3 enlarged lymph nodes: right external iliac 4.1 x 2.6 cm, right common iliac 1.5 x 1.9 cm, left internal iliac 9 mm. Minimal activity was seen within the prostate gland, and prostate biopsies were negative. - Constitutional Constitutional: Denies chills, Denies fever, Denies weight loss Past Medical History Past Medical History: No Reported History Additional Past Medical History / Comment(s): prostate CA dx radiation tx-last radiation-last tx Apr.,pericarditis approx 25 yrs ago History of Any Multi-Drug Resistant Organisms: None Reported Past Surgical History: Tonsillectomy Additional Past Surgical History / Comment(s): Plastic surgery right side of face at 6y.o. Past Anesthesia/Blood Transfusion Reactions: No Reported Reaction Additional Past Anesthesia/Blood Transfusion Reaction / Comment(s): no hx blood transfusion Additional Past Alcohol Use History / Comment(s): smokes cigars started smoking at approx age 23. quit smoking cigarettes approx 7 yrs ago-1 2 ppd - Past Family History Mother Family Medical History: Cancer Additional Family Medical History / Comment(s): breast X2 Father Family Medical History: Cancer Additional Family Medical History / Comment(s): prostate Medications and Allergies Home Medications Medication Instructions Recorded Confirmed Type Cholecalciferol [Vitamin D3 (25 2,000 unit PO DAILY 01/26/20 01/26/20 History Mcg = 1000 Iu)] Allergies Allergy/AdvReac Type Severity Reaction Status Date / Time shellfish derived [Shellfish] Allergy Rash/Hives Verified 01/26/20 11:21 Surgical - Exam - General well developed, well nourished, no distress - Respiratory normal respiratory effort, clear to auscultation - Cardiovascular Rhythm: regular Abnormal Heart Sounds: no systolic murmur, no diastolic murmur, no rub, no S3 G allop, no S4 Gallop, no click, no other - Abdomen Abdomen: soft, non tender, no guarding, no rigid, no rebound - Genitourinary normal penis with no external lesions, testicles non-tender - Rectum Rectum: normal sphincter tone, no masses, other (prostate small and smooth) - Psychiatric oriented to time, oriented to person, oriented to place, speech is normal, memory intact Results - Imaging CT scan - pelvis: report reviewed, image reviewed Assessment and Plan (1) Adenocarcinoma of prostate Status: Acute Code(s): C61 - MALIGNANT NEOPLASM OF PROSTATE SNOMED Code(s): 508504695 Plan: Robotic-assisted laparoscopic bilateral pelvic lymph node dissection. The procedure then reviewed in detail with the patient. He understands potential risks to include anesthesia, bleeding, infection, lymphocele, bowel injury, and vascular injury. The possible need to convert to an open procedure has been discussed. The patient is also understanding of the fact that his PSA level may fail to become undetectable following the procedure despite successful removal of the known involved lymph nodes.
[~2021-06-06 09:51] MED LIST changes: +DEXAMETHASONE SOD PHOSPHATE 4 MG/ML 1 ML VIAL IV ONE; +HEPARIN SODIUM,PORCINE/PF 5,000 UNIT/0.5 ML SYRINGE SQ PRN; +HYDROmorphone 0.5 MG/0.5 ML SYRINGE IVP PRN; -LACTATED RINGERS 1,000 ML IV SCH; +LIDOCAINE 1% (10MG/ML) FOR IV START INTRADERMA PRN; +ONDANSETRON 4 MG/2 ML VIAL IVP ONE
[2021-06-06] MEDS ORDERED: LACTATED RINGERS 1,000 ML IV ONE ×3 (10:25→15:35)
[2021-06-06] MEDS ORDERED: MIDAZOLAM 2 MG/2 ML VIAL IVP ONE (10:47)
[2021-06-06] MEDS ORDERED: ROPIVACAINE 5 MG/ML 30 ML VIAL ONE (11:05)
[2021-06-06] MEDS ORDERED: ROCURONIUM 10 MG/ML (5 ML VIAL) IV ONE (11:05)
[2021-06-06] MEDS ORDERED: DEXAMETHASONE SOD PHOSPHATE 4 MG/ML 1 ML VIAL ONE (11:05)
[2021-06-06] MEDS ORDERED: LIDOCAINE 1% INJ 10MG/ML (20 ML MDV) ONE (11:05)
[2021-06-06] MEDS ORDERED: BUPIVACAINE (PF) 0.25% 30 ML VIAL SQ ONE ×2 (11:05→13:39)
[2021-06-06] MEDS ORDERED: SODIUM CHLORIDE 0.9% (PF) 10 ML VIAL ONE (11:05)
[2021-06-06] MEDS ORDERED: fentaNYL (PF) 50 MCG/ML 2 ML AMP ONE (11:05)
[2021-06-06] MEDS ORDERED: HYDROmorphone (PF) 1 MG/ML ONE (11:05)
[2021-06-06] MEDS ORDERED: NEOSTIGMINE 1 MG/ML 10 ML VIAL ONE (11:05)
[2021-06-06] MEDS ORDERED: SUCCINYLCHOLINE CHLORIDE 100 MG/5 ML SYR IV ONE (11:05)
[2021-06-06] MEDS ORDERED: GLYCOPYRROLATE 0.2 MG/ML 2 ML VIAL ONE (11:05)
[2021-06-06] MEDS ORDERED: PROPOFOL 10 MG/ML 20 ML VIAL IV ONE (11:05)
[2021-06-06] MEDS ORDERED: PHENYLEPHRINE-0.9% NACL SYG 1,000 MCG/10 ML SYRINGE ONE (11:05)
--- NOTE | 2021-06-06 11:09 | P.ANPRN ---
Procedure Note - Anesthesia - Nerve Block Performed Bilateral Erector Spinae Single Time Out Performed: Yes Date of Procedure: 06/06/21 Procedure Start Time: 10:45 Procedure Stop Time: 10:57 Location of Patient: PreOp Indication: Requested by Surgeon Specifically requested for management of pain by DrLidia: Richard Delacruz Sedation Type: Sedate with meaningful contact maintained Preparation: Sterile Prep Position: Prone Needle Types: Pajunk Needle Gauge: 21 Ultrasound used to visualize needle placement: Yes Ultrasound used to observe medication spread: Yes Injectate: 0.5% Ropivacaine (see comment for volume) (15 ml + 15 ml NS 0.9 % + 4 mg dexamethason 4 mg per side) Blood Aspirated: No Pain Paresthesia on Injection Noted: No Resistance on Injection: Normal Image Stored and Saved: Yes Events: Uneventful and Well Tolerated
--- NOTE | 2021-06-06 13:54 | P.OP ---
Date of Procedure: 06/06/21 Preoperative Diagnosis: Metastatic adenocarcinoma of the prostate Postoperative Diagnosis: Same Procedure(s) Performed: Robotic-assisted laparoscopic bilateral pelvic lymph node dissection Anesthesia: NIKOLAS Surgeon: Richard Delacruz Pattern Hanger #1: Eloy Dey Estimated Blood Loss (ml): 20 IV fluids (ml): 900 Pathology: other (Bilateral pelvic lymph nodes) Condition: stable Disposition: PACU Indications for Procedure: The patient is a 71-year-old white male diagnosed with prostate cancer in November 2017. His PSA level at that time was 3.98. 9 of 12 biopsies showed Dobbins 7 adenocarcinoma. He elected to be treated with combination radiation therapy and androgen deprivation therapy (ADT). His PSA level became undetectable, but has gradually risen this year from 1.2 in December 2020 to 4.6 in March 2021. An Axumin PET/CT scan showed 3 enlarged lymph nodes: right external iliac 4.1 x 2.6 cm, right common iliac 1.5 x 1.9 cm, left internal iliac 9 mm. My review of the images did not show a left internal iliac abnormality. Minimal activity was seen within the prostate gland, and prostate biopsies were negative. Operative Findings: Two enlarged right pelvic lymph nodes, removed intact. Description of Procedure: The patient was taken in the operating room and placed in the supine position. He was carefully positioned on a beanbag for stability. The abdomen and external genitalia were prepped and draped sterilely. A Keller catheter was inserted. The Veress needle was passed through the anterior abdominal wall immediately cephalad to the umbilicus, and insufflation was performed to a pressure of 20 mm Hg. Once insufflation was performed, the Veress needle was removed and a supraumbilical incision was made, through which an 8 mm camera port was placed. Under camera guidance, 3 8 mm robotic ports were placed, 2 on the left and one on the right. A 12 mm port was placed on the right lateral side for use as an assistant signal maintainer port. A 5 mm port was placed to the right of the camera port for suction. The patient was placed in Trendelenburg position, and docking was then performed to the da Manuel system utilizing a 4-arm approach. The abdomen was examined. The sigmoid colon was mobilized out of the pelvis, as was the cecum and ascending colon. The peritoneum was incised over the right common iliac artery. Dissection was continued distally over the artery. The ureter was identified. It was isolated and dissected away from the field of interest. The smaller of the 2 enlarged right pelvic lymph nodes was identified just lateral to the common iliac artery. This was dissected free of adjacent tissues and removed intact. Dissection was then continued distally, exposing the larger of the nodes. Again, using a combination of sharp and blunt dissection, this node was dissected away from adjacent structures. It was adherent to the external iliac vein, but it was possible to remove the node intact without injuring the vein. After removing the 2 nodes, the remaining tissue within the extended template was excised using a combination of sharp and blunt dissection. Margins of dissection were the bifurcation of the iliac vessels proximally, the circumflex iliac vein distally, the genitofemoral nerve laterally, and the obturator nerve medially. Care was taken to avoid any neurovascular injury, and the use of monopolar electrocautery was avoided immediately adjacent to neurovascular structures. The left pelvic lymph node dissection was then performed in the standard fashion. The peritoneal incision was again made over the common iliac artery. The incision was extended distally, and margins of dissection were the bifurcation of the iliac vessels proximally, the circumflex iliac vein distally, the genitofemoral nerve laterally, and the obturator nerve medially. A combination of sharp and blunt dissection was used. Care was taken to avoid any neurovascular injury, and the use of monopolar electrocautery was avoided immediately adjacent to neurovascular structures. The lymphatic package was into 2 separate specimens, and both were clipped to identify them as being from the left side. No enlarged lymph nodes were encountered. There were no complications. Surgical specimens from each side were placed within a specimen bag. Minor oozing was noted from the lymphadenectomy bed, more so on the right side where the external iliac vein and obturator nerve come together. Tisseel was sprayed into the bed of the lymphadenectomies, and Surgicel was placed over this. The patient was returned to the supine position. Undocking was performed, and the specimen bag sutures were passed through the camera port. After removing all the ports and allowing all of the CO2 to be released from the peritoneal cavity, the camera port incision was enlarged to allow removal of the surgical specimen. The fascia of this incision was then closed using 0 PDS suture in a running fashion. Each of the skin incisions were then closed using 4-0 Monocryl suture in a subcuticular fashion. Marcaine was injected at each of the incision sites. Dermabond was applied to each incision. The Keller catheter was connected to gravity drainage. All sponge and needle counts were correct. The patient tolerated the procedure well was taken to the recovery room in stable condition.
[2021-06-06] MEDS ORDERED: HYDROmorphone 1 MG/ML 1 ML SYRINGE IVP PRN (14:50)
[2021-06-06] MEDS ORDERED: MAG HYDROX/AL HYDROX/SIMETH 30 ML CUP PO PRN (14:50)
[2021-06-06] MEDS ORDERED: ONDANSETRON 4 MG/2 ML VIAL IVP PRN (14:50)
[2021-06-06] MEDS ORDERED: KETOROLAC 15 MG/ML 1 ML VIAL IVP PRN (14:50)
[2021-06-06] MEDS ORDERED: ACETAMINOPHEN TAB 325 MG TAB PO PRN (14:50)
[2021-06-06] MEDS: DEXTROSE 5%-0.45% NACL 1,000 ML IV SCH ×2 (16:30→23:55)
[2021-06-06] MEDS: LACTATED RINGERS 1,000 ML IV SCH (16:57)
[2021-06-06] MEDS: HEPARIN SODIUM,PORCINE/PF 5,000 UNIT/0.5 ML SYRINGE SQ SCH (20:41)
[2021-06-07 03:10] VITALS: TEMP 98.2
[2021-06-07] MEDS: LACTATED RINGERS 1,000 ML IV SCH (07:34)
[2021-06-07 07:59] VITALS: BP 119/61; PULSE 80; RESP 18
[2021-06-07] MEDS: HEPARIN SODIUM,PORCINE/PF 5,000 UNIT/0.5 ML SYRINGE SQ SCH (08:01)
[2021-06-07] MEDS: DEXTROSE 5%-0.45% NACL 1,000 ML IV SCH (08:02)
--- NOTE | 2021-06-07 09:04 | P.DS ---
Providers Expected date of discharge: 06/07/21 Attending physician: Richard Delacruz Primary care physician: Eliseo Lazo - Discharge Diagnosis(es) (1) Adenocarcinoma of prostate Current Visit: No Status: Acute Hospital Course: On the day of admission, the patient underwent an uncomplicated robotic-assisted laparoscopic bilateral pelvic lymph node dissection. The perioperative course was unremarkable. The patient remained afebrile stable vital signs. The Keller catheter was removed postoperatively. The patient tolerated diet and denied nausea. On the first postoperative day, he denied pain. On examination, the abdomen was soft and nondistended. The incisions were clean and dry. The patient was voiding without difficulty. Procedures: Robotic-assisted laparoscopic bilateral pelvic lymph node dissection on 06/06/2021 Patient Condition at Discharge: Good Plan - Discharge Summary Discharge Rx Participant: Yes New Discharge Prescriptions: New Ketorolac [Toradol] 10 mg PO Q6HR PRN #12 tab PRN Reason: Pain No Action Cholecalciferol [Vitamin D3 (25 Mcg = 1000 Iu)] 2,000 unit PO DAILY Androgen Blocking Med 1 dose PO DAILY Discharge Medication List Cholecalciferol [Vitamin D3 (25 Mcg = 1000 Iu)] 2,000 unit PO DAILY 01/26/20 [History] Androgen Blocking Med 1 dose PO DAILY 06/04/21 [History] Ketorolac [Toradol] 10 mg PO Q6HR PRN #12 tab 06/07/21 [Rx] Follow up Appointment(s)/Referral(s): Richard Delacruz MD [STAFF PHYSICIAN] - 3 Weeks Activity/Diet/Wound Care/Special Instructions: Diet as tolerated. No driving for 1 week. Okay to shower. No lifting or strenuous activity. Discharge Disposition: HOME SELF-CARE
== END 2021-06-07 09:35 | disposition home or self-care (01) ==
LOC: OR 09:51 → 6NMEDSUR 13:48 → OR 06-07 09:35
PROVIDERS: ATTEND Urology
DX: C61 Malignant neoplasm of prostate (principal); Z92.3 Personal history of irradiation; Z98.890 Other specified postprocedural states; F17.290 Nicotine dependence, other tobacco product, uncomplicated; Z20.822 Contact with and (suspected) exposure to COVID-19; Z80.3 Family history of malignant neoplasm of breast; Z80.42 Family history of malignant neoplasm of prostate; Z91.013 Allergy to seafood
CPT/HCPCS: 64999; 86900; 86901; 86850; 87635; 38571; C1762; J2250; J1100; J2710; J0690; J2405; J2001; J3010; J1170; J2795; J2370; J0330; J2704; J1644 ×2; 88307

== ENCOUNTER → 2022-02-05 | Outpatient (CLI) | payer MEDICARE | END | disposition home or self-care (01) | LOC: LABWHC1 09:06 | PROVIDERS: ATTEND Urology | DX: C61 Malignant neoplasm of prostate (principal) | CPT/HCPCS: 36415; 84153; 84403 ==

== ENCOUNTER → 2022-02-28 | Outpatient (CLI) | payer MEDICARE ==
--- NOTE | 2022-02-28 12:20 | NM ---
EXAMINATION TYPE: NM bone scan whole body DATE OF EXAM: 02/28/2022 COMPARISON: NONE HISTORY: Prostate cancer Delayed whole-body scanning was performed following the injection of 23.7 mCi Tc 99m MDP. Images acq uired 3 hours post injection. FINDINGS: Soft tissue uptake is normal. There is a spinal curvature present. Asymmetric increased uptake noted at the posterior left scapula. There is uptake in the lumbar spine which is indeterminate but may be degenerative. Uptake within the shoulders, sternoclavicular joints, hips, knees, ankles and feet is likely degenerative. Uptake in the maxilla and mandible is likely du e to periodontal disease. IMPRESSION: Findings suspicious for metastatic disease, left scapula, MRI may be of benefit. Lumbar spine activit y may be degenerative.
== END | disposition home or self-care (01) ==
LOC: RADNMMAIN 06:54
PROVIDERS: ATTEND Urology
DX: C61 Malignant neoplasm of prostate (principal)
CPT/HCPCS: 78306; A9503

== ENCOUNTER 2023-05-12 10:48 | Emergency (ER) | payer MEDICARE ==
--- NOTE | 2023-05-12 11:26 | ED ---
General Adult HPI - General Source: RN notes reviewed <Swati Lemon - Last Filed: 05/12/23 11:25> <Ed Morrow - Last Filed: 05/12/23 16:19> - General Stated complaint: constipation Time Seen by Provider: 05/12/23 11:25 - History of Present Illness Initial comments: 73-year-old male with a past medical history significant for prostate cancer and liver cancer presents to the emergency department with a chief complaint of constipation. Patient received chemotherapy late last week. He reports he has not had a bowel movement since 05/07/2023. Denies fevers , nausea, vomiting. (Swati Lemon) This is a 73-year-old male who presents emergency Department with a past medical history significant for metastatic prostate cancer as well as having newfound cancer in his liver. Patient states he switched chemo most recently and got chemotherapy Thursday or Thursday. Patient started to become constipated on Thursday he's tried multiple things at home but unable to have any bowel movement since . He states his abdomen he occasionally has some pain but it comes and goes that the cramping feeling. Patient denies any nausea vomiting. Patient denies any pain currently. Patient denies any back pain. (Ed Morrow) - Related Data Home Medications Medication Instructions Recorded Confirmed Cholecalciferol [Vitamin D3 (25 2,000 unit PO DAILY 01/26/20 06/04/21 Mcg = 1000 Iu)] Androgen Blocking Med 1 dose PO DAILY 06/04/21 06/06/21 Previous Rx's Medication Instructions Recorded Ketorolac [Toradol] 10 mg PO Q6HR PRN #12 tab 06/07/21 Allergies Allergy/AdvReac Type Severity Reaction Status Date / Time shellfish derived [Shellfish] Allergy Rash/Hives Verified 05/12/23 11:26 Review of Systems ROS Other: All systems not noted in ROS Statement are negative. <Swati Lemon - Last Filed: 05/12/23 11:25> ROS Other: All systems not noted in ROS Statement are negative. <Ed Morrow - Last Filed: 05/12/23 16:19> ROS Statement: Those systems with pertinent positive or pertinent negative responses have been documented in the HPI. Past Medical History Past Medical History: No Reported History Additional Past Medical History / Comment(s): prostate CA dx - radiation tx-last radiation-last tx Apr.,pericarditis approx 25 yrs ago History of Any Multi-Drug Resistant Organisms: None Reported Past Surgical History: Tonsillectomy Additional Past Surgical History / Comment(s): Plastic surgery right side of face at 6y.o. Past Anesthesia/Blood Transfusion Reactions: No Reported Reaction Additional Past Anesthesia/Blood Transfusion Reaction / Comment(s): no hx blood transfusion Past Psychological History: No Psychological Hx Reported Past Alcohol Use History: Occasional Additional Past Alcohol Use History / Comment(s): smokes cigars started smoking at approx age 23. quit smoking cigarettes approx 7 yrs ago-1 1/2 ppd Past Drug Use History: None Reported - Past Family History Mother Family Medical History: Cancer Additional Family Medical History / Comment(s): breast X2 Father Family Medical History: Cancer Additional Family Medical History / Comment(s): prostate <Swati Lemon - Last Filed: 05/12/23 11:25> General Exam <Swati Lemon - Last Filed: 05/12/23 11:25> <Ed Morrow - Last Filed: 05/12/23 16:19> - General Exam Comments Initial Comments: Visual Physical Exam Vital signs reviewed General: Well-appearing, nontoxic, no acute distress. Head: Normocephalic, atraumatic Eyes: PERRLA, EOMI ENT: Airway patent Chest: Nonlabored breathing Skin: No visual rash, normal skin tone Neuro: Alert and oriented 3 Musculoskeletal: No gross abnormalities I performed the quick note portion of this exam, verbal signature Swati Lemon PA-C (Swati Lemon) GENERAL: Patient is well-developed and well-nourished. Patient is nontoxic and well- hydrated and is in mild distress. ENT: Neck is soft and supple. No significant lymphadenopathy is noted. Oropharynx is clear. Moist mucous membranes. Neck has full range of motion without eliciting any pain. EYES: The sclera were anicteric and conjunctiva were pink and moist. Extraocular movements were intact and pupils were equal round and reactive to light. Eyelids were unremarkable. PULMONARY: Unlabored respirations. Good breath sounds bilaterally. No audible rales rhonchi or wheezing was noted. CARDIOVASCULAR: There is a regular rate and rhythm without any murmurs gallops or rubs. ABDOMEN: Soft and nontender with normal bowel sounds. SKIN: Skin is clear with no lesions or rashes and otherwise unremarkable. NEUROLOGIC: Patient is alert and oriented x3. Cranial nerves II through XII are grossly intact. Motor and sensory are also intact. Normal speech, volume and content. Symmetrical smile. MUSCULOSKELETAL: Normal extremities with adequate strength and full range of motion. LYMPHATICS: No significant lymphadenopathy is noted PSYCHIATRIC: Normal psychiatric evaluation. (Ed Morrow) Course Vital Signs 05/12/23 11:21 Temperature 98.1 F Pulse Rate 79 Respiratory 18 Rate Blood Pressure 104/63 O2 Sat by Pulse 98 Oximetry Medical Decision Making - Lab Data Result diagrams: 05/12/23 11:28 05/12/23 11:28 <Ed Morrow - Last Filed: 05/12/23 16:19> - Medical Decision Making Was pt. sent in by a medical professional or institution (, PA, TEST FIXTURE DESIGNER, urgent care, hospital, or snf...) When possible be specific @ -No Did you speak to anyone other than the patient for history (EMS, parent, family, police, friend...)? What history was obtained from this source @ -No Did you review nursing and triage notes (agree or disagree)? Why? @ -I reviewed and agree with nursing and triage notes Were old charts reviewed (outside hosp., previous admission, EMS record, old EKG, old radiological studies, urgent care reports/EKG's, snf records)? Report findings @ -I reviewed prior charts in prior laboratory in this patient Differential Diagnosis (chest pain, altered mental status, abdominal pain women, abdominal pain men, vaginal bleeding, weakness, fever, dyspnea, syncope, headache, dizziness, GI bleed, back pain, seizure, CVA, palpatations, mental health, musculoskeletal)? @ -Differential GI Bleed: Esophageal varices, aortoenteric fistula, Maria Guadalupe-Carbajal, gastritis, peptic ulcer disease, diverticulosis, inflammatory bowel disease, hemorrhoids, fissure, colitis, malignancy, Meckels diverticulum, this is not meant to be an all- inclusive list. EKG interpreted by me (3pts min.). @ -As above X-rays interpreted by me (1pt min.). @ -None done CT interpreted by me (1pt min.). @ -None done U/S interpreted by me (1pt. min.). @ -None done What testing was considered but not performed or refused? (CT, X-rays, U/S, labs)? Why? @ -None What meds were considered but not given or refused? Why? @ -None Did you discuss the management of the patient with other professionals (professionals i.e. , PA, TEST FIXTURE DESIGNER, lab, RT, psych nurse, dialysis social worker, diesel technician, teacher, armed security officer, geriatric case manager)? Give summary @ -No Was smoking cessation discussed for >3mins.? @ -No Was critical care preformed (if so, how long)? @ -No Were there social determinants of health that impacted care today? How? (Homelessness, low income, unemployed, alcoholism, drug addiction, transportation, low edu. Level, literacy, decrease access to med. care, custodial, rehab)? @ -No Was there de-escalation of care discussed even if they declined (Discuss DNR or withdrawal of care, Hospice)? DNR status @ -No What co-morbidities impacted this encounter? (DM, HTN, Smoking, COPD, CAD, Cancer, CVA, ARF, Chemo, Hep., AIDS, mental health diagnosis, sleep apnea, morbid obesity)? @ -None Was patient admitted / discharged? Hospital course, mention meds given and route, prescriptions, significant lab abnormalities, going to OR and other per tinent info. @ -Patient was given an enema in the emergency department with very good results and feeling much better patient was discharged home Undiagnosed new problem with uncertain prognosis? @ -No Drug Therapy requiring intensive monitoring for toxicity (Heparin, Nitro, Insulin, Cardizem)? @ -No Were any procedures done? @ -No Diagnosis/symptom? @ -Constipation Acute, or Chronic, or Acute on Chronic? @ -Acute Uncomplicated (without systemic symptoms) or Complicated (systemic symptoms)? @ -Uncomplicated Side effects of treatment? @ -No Exacerbation, Progression, or Severe Exacerbation? @ -No Poses a threat to life or bodily function? How? (Chest pain, USA, IA, pneumonia, PE, COPD, DKA, ARF, appy, cholecystitis, CVA, Diverticulitis, Homicidal, Suicidal, threat to staff... and all critical care pts) @ -No (Ed Morrow) - Lab Data Lab Results 05/12/23 05/12/23 Range/Units 11:28 11:28 WBC 4.2 (3.8-10.6) k/uL RBC 3.32 L (4.30-5.90) m/uL Hgb 11.4 L (13.0-17.5) gm/dL Hct 33.1 L (39.0-53.0) % MCV 99.6 (80.0-100.0) fL MCH 34.2 (25.0-35.0) pg MCHC 34.4 (31.0-37.0) g/dL RDW 14.7 (11.5-15.5) % Plt Count 236 (150-450) k/uL MPV 9.0 Neutrophils % 75 % Lymphocytes % 23 % Monocytes % 1 % Eosinophils % 0 % Basophils % 0 % Neutrophils # 3.1 (1.3-7.7) k/uL Lymphocytes # 0.9 L (1.0-4.8) k/uL Monocytes # 0.0 (0-1.0) k/uL Eosinophils # 0.0 (0-0.7) k/uL Basophils # 0.0 (0-0.2) k/uL Macrocytosis Slight Sodium 135 L (137-145) mmol/L Potassium 4.4 (3.5-5.1) mmol/L Chloride 101 (98-107) mmol/L Carbon Dioxide 24 (22-30) mmol/L Anion Gap 10 mmol/L BUN 22 H (9-20) mg/dL Creatinine 0.78 (0.66-1.25) mg/dL Est GFR (CKD-EPI)AfAm >90 (>60 ml/min/1.73 sqM) Est GFR (CKD-EPI)NonAf >90 (>60 ml/min/1.73 sqM) Glucose 97 (74-99) mg/dL Calcium 9.1 (8.4-10.2) mg/dL Total Bilirubin 0.7 (0.2-1.3) mg/dL AST 23 (17-59) U/L ALT 18 (4-49) U/L Alkaline Phosphatase 131 H (38-126) U/L Total Protein 6.6 (6.3-8.2) g/dL Albumin 3.8 (3.5-5.0) g/dL Disposition <Swati Lemon - Last Filed: 05/12/23 11:25> Is patient prescribed a controlled substance at d/c from ED?: No Time of Disposition: 16:16 <Ed Morrow - Last Filed: 05/12/23 16:19> Clinical Impression: Constipation Disposition: HOME SELF-CARE Condition: Good Instructions (If sedation given, give patient instructions): Constipation (ED), High Fiber Diet (ED) Referrals: Eliseo Lazo DO [Primary Care Provider] - 1-2 days
[2023-05-12 11:41] VITALS: BP 104/63; PULSE 79; RESP 18; TEMP 98.1
[2023-05-12 11:51] LABS: Basophils % (A) 0 %; Eosinophils % (A) 0 %; HCT 33.1 % (39.0-53.0); HGB 11.4 gm/dL (13.0-17.5); Lymphocytes # (A) 0.9 k/uL (1.0-4.8); Lymphocytes % (A) 23 %; MCH 34.2 pg (25.0-35.0); MCHC 34.4 g/dL (31.0-37.0); MCV 99.6 fL (80.0-100.0); Macrocytosis Slight; Monocytes % (A) 1 %; Neutrophils # (A) 3.1 k/uL (1.3-7.7); Neutrophils % (A) 75 %; Platelet Count 236 k/uL (150-450); RBC 3.32 m/uL (4.30-5.90); RDW 14.7 % (11.5-15.5); WBC 4.2 k/uL (3.8-10.6)
--- NOTE | 2023-05-12 11:56 | XR ---
EXAMINATION TYPE: XR KUB DATE OF EXAM: 05/12/2023 COMPARISON: NONE HISTORY: Constipation TECHNIQUE: One view abdominal series FINDINGS: The osseous structures are intact. The bowel gas pattern is nonspecific. Lung bases are clear. Scol iosis is of the spine. Prostate seeds are noted. Bilateral hypertrophic arthropathy of the hips. Clara t sclerosis involving the left inferior pubic ramus nonspecific no suspicious calcifications. IMPRESSION: 1. Nonspecific abdomen. Extensive retained fecal debris correlate for constipation.
[2023-05-12 12:03] LABS: ALT 18 U/L (4-49); AST 23 U/L (17-59); African American GFR (CKD) >90 (>60 ml/min/1.73 sqM); Albumin 3.8 g/dL (3.5-5.0); Alkaline Phosphatase 131 U/L (38-126); Anion Gap 10 mmol/L; Blood Urea Nitrogen 22 mg/dL (9-20); Calcium 9.1 mg/dL (8.4-10.2); Carbon Dioxide 24 mmol/L (22-30); Chloride 101 mmol/L (98-107); Glucose 97 mg/dL (74-99); Non-African American GFR(CKD) >90 (>60 ml/min/1.73 sqM); Potassium 4.4 mmol/L (3.5-5.1); Sodium 135 mmol/L (137-145); Total Bilirubin 0.7 mg/dL (0.2-1.3); Total Protein 6.6 g/dL (6.3-8.2)
== END 2023-05-12 16:24 | disposition home or self-care (01) ==
LOC: EC 10:48
DX: K59.00 Constipation, unspecified (principal); Z91.013 Allergy to seafood
CPT/HCPCS: 36415; 74018; 80053; 85025; 99284

== ENCOUNTER → 2023-07-07 | Outpatient (CLI) | payer MEDICARE ==
--- NOTE | 2023-07-07 15:37 | MR ---
EXAMINATION TYPE: MR brain wo/w con DATE OF EXAM: 07/07/2023 3:01 PM COMPARISON: NONE HISTORY: Blurry vision. Liver ,lymph node, and prostate cancer. CONTRAST: Patient received 9.5 mL intravenous Gadavist gadolinium contrast. Multiplanar and multispin-echo imaging of the brain was performed . Pre and post contrast enhanced i mages are obtained. The ventricles, basal cisterns and sulci overlying the cerebral convexities are mildly enlarged. There is evidence of mild periventricular white matter ischemic demyelination. Remote deep white matter insults are also noted. No acute edema is seen on diffusion weighted imaging. There is no evidence for midline shift or mass effect. Acute intracranial hemorrhage or extra-axial collection is not evident. No enhancing lesions are seen. The paranasal sinuses and mastoid air cells are well-aerated. IMPRESSION: Age-related atrophic and chronic small vessel ischemic change. No acute intracranial process at this time. No enhancing lesions are seen.
== END | disposition home or self-care (01) ==
LOC: RADMRIMAIN 13:58
PROVIDERS: ATTEND Internal Medicine Hematology & Oncology
DX: I67.82 Cerebral ischemia (principal); H53.8 Other visual disturbances; C61 Malignant neoplasm of prostate; G31.1 Senile degeneration of brain, not elsewhere classified
CPT/HCPCS: 70553; A9585

== ENCOUNTER → 2023-07-13 | Outpatient (CLI) | payer MEDICARE ==
--- NOTE | 2023-07-13 17:14 | MR ---
EXAMINATION TYPE: MR lumbar spine wo/w con DATE OF EXAM: 07/13/2023 5:05 PM COMPARISON: NONE HISTORY: Low back pain into right side, Hx prostate cancer CONTRAST: The patient was injected with 10 mL intravenous Gadavist gadolinium contrast. Multiplanar, MultiSpin echo imaging of the lumbar spine was performed. Multiple lesions are seen throughout the lower thoracic and lumbar spine T11 through the sacrum. No d efinite bony retropulsion. Retroperitoneal adenopathy noted. L1-L2: Normal disc appearance without desiccation. No herniation, protrusion or disc bulging. No ca nal stenosis is present. Foramina are patent bilaterally. L2-L3: Moderate disc desiccation with posterior disc bulge. Effacement ventral thecal sac with mild c entral stenosis. Mild bilateral neural foraminal encroachment. L3-L4: Moderate disc desiccation with posterior disc bulge. Effacement ventral thecal sac with mild c entral stenosis. Mild bilateral neural foraminal encroachment. L4-L5: Normal disc appearance without desiccation. No herniation, protrusion or disc bulging. No ca nal stenosis is present. Foramina are patent bilaterally. L5-S1: Normal disc appearance without desiccation. No herniation, protrusion or disc bulging. No ca nal stenosis is present. Foramina are patent bilaterally. Lumbar segments are intact. No paraspinal masses are identified. Conus medullaris has a normal appe arance. IMPRESSION: 1. Diffuse metastatic lesions seen throughout the lumbar spine and visualized portions of the sacrum as well as the lower thoracic spine. No bony retropulsion identified. 2. Spinal stenosis at L2-3 and L3-4
== END | disposition home or self-care (01) ==
LOC: RADMRIMAIN 16:04
PROVIDERS: ATTEND Internal Medicine Hematology & Oncology
DX: C79.51 Secondary malignant neoplasm of bone (principal); C61 Malignant neoplasm of prostate; M48.061 Spinal stenosis, lumbar region without neurogenic claudication
CPT/HCPCS: 72158; A9585

== ENCOUNTER 2023-08-02 13:05 | Inpatient (IN) | payer MEDICARE ==
[2023-08-02] MEDS ORDERED: SODIUM CHLORIDE 0.9% 1,000 ML IV STA (13:29)
--- NOTE | 2023-08-02 13:55 | ED ---
General Adult HPI - General Chief complaint: Weakness Stated complaint: NVD Time Seen by Provider: 08/02/23 13:12 Source: patient, RN notes reviewed Mode of arrival: wheelchair Limitations: no limitations - History of Present Illness Initial comments: 73-year-old male presents emergency Department with chief complaint of weakness. Patient states he is currently on treatment for metastatic prostate cancer, small cell cancer. Patient states that he received chemotherapy on Thursday. He states he had not been feeling well prior to this. He did receive some IV fluids and blood transfusion on Thursday. Patient denies reported fever he states that he cannot keep anything down he's had nausea vomiting and feels quite dehydrated. He denies any localized abdominal pain denies headache, dizziness she does clinically back pain which is been ongoing and chronic. - Related Data Home Medications Medication Instructions Recorded Confirmed Ibuprofen [Motrin Ib] 400 - 600 mg PO Q8H PRN 08/02/23 08/02/23 Ketorolac [Toradol] 10 mg PO TID PRN 08/02/23 08/02/23 Ondansetron Odt [Zofran Odt] 4 mg PO TID PRN 08/02/23 08/02/23 Pantoprazole Sodium [Protonix] 20 mg PO BID 08/02/23 08/02/23 Temazepam [Restoril] 30 mg PO HS 08/02/23 08/02/23 traMADol HCL 50 mg PO BID PRN 08/02/23 08/02/23 Allergies Allergy/AdvReac Type Severity Reaction Status Date / Time shellfish derived [Shellfish] Allergy Rash/Hives Verified 08/02/23 15:55 dronabinol [From Marinol] AdvReac Nausea & Verified 08/02/23 15:55 Vomiting Review of Systems ROS Statement: Those systems with pertinent positive or pertinent negative responses have been documented in the HPI. ROS Other: All systems not noted in ROS Statement are negative. Past Medical History Past Medical History: Cancer Additional Past Medical History / Comment(s): prostate CA dx radiation tx-last radiation-last tx Apr.,pericarditis approx 25 yrs ago History of Any Multi-Drug Resistant Organisms: None Reported Past Surgical History: Tonsillectomy Additional Past Surgical History / Comment(s): Plastic surgery right side of face at 6y.o. prostate Past Anesthesia/Blood Transfusion Reactions: No Reported Reaction Additional Past Anesthesia/Blood Transfusion Reaction / Comment(s): no hx blood transfusion Past Psychological History: No Psychological Hx Reported Smoking Status: Former smoker - Past Family History Mother Family Medical History: Cancer Additional Family Medical History / Comment(s): breast X2 Father Family Medical History: Cancer Additional Family Medical History / Comment(s): prostate General Exam Limitations: no limitations General appearance: alert, in no apparent distress Head exam: Present: atraumatic, normocephalic, normal inspection Eye exam: Present: normal appearance, PERRL, EOMI. Absent: scleral icterus, conjunctival injection, periorbital swelling ENT exam: Present: normal oropharynx, mucous membranes dry. Absent: normal exam, mucous membranes moist Neck exam: Present: normal inspection, full ROM. Absent: tenderness, meningismus, lymphadenopathy Respiratory exam: Present: normal lung sounds bilaterally. Absent: respiratory distress, wheezes, rales, rhonchi, stridor Cardiovascular Exam: Present: regular rate, normal rhythm, normal heart sounds. Absent: systolic murmur, diastolic murmur, rubs, gallop, clicks GI/Abdominal exam: Present: soft, normal bowel sounds. Absent: distended, tenderness, guarding, rebound, rigid Neurological exam: Present: alert, oriented X3 Course Vital Signs 08/02/23 13:08 Temperature 97.9 F Pulse Rate 92 Respiratory 16 Rate Blood Pressure 97/59 O2 Sat by Pulse 96 Oximetry EKG Findings - EKG Comments: EKG Findings:: EKG performed at 14:17 sinus rhythm with rate of 87 ME 128 QRS 1:30 QT/QTC 385/4:30 - EKG Results: EKG: interpreted by ERMD Medical Decision Making - Medical Decision Making Was pt. sent in by a medical professional or institution (, PA, WHEAT INSPECTOR, urgent care, hospital, or [facility]...) When possible be specific @ -Oncology Did you speak to anyone other than the patient for history (EMS, parent, family, police, friend...)? What history was obtained from this source @ -No Did you review nursing and triage notes (agree or disagree)? Why? @ -I reviewed and agree with nursing and triage notes Were old charts reviewed (outside hosp., previous admission, EMS record, old EKG, old radiological studies, urgent care reports/EKG's, [facility] records)? Report findings @ -Reviewed prior laboratory studies Differential Diagnosis (chest pain, altered mental status, abdominal pain women, abdominal pain men, vaginal bleeding, weakness, fever, dyspnea, syncope, headache, dizziness, GI bleed, back pain, seizure, CVA, palpatations, mental health, musculoskeletal)? @ -Differential Weakness: dehydration, metastatic cancer, acute kidney injury, hypoglycemia, shock, sepsis, hyponatremia, anemia, infection, VT, ETOH, adverse medicine reaction, overdose, stroke, this is not meant to be an all-inclusive list. EKG interpreted by me (3pts min.). @ -As above X-rays interpreted by me (1pt min.). @ -None done CT interpreted by me (1pt min.). @ -None done U/S interpreted by me (1pt. min.). @ -None done What testing was considered but not performed or refused? (CT, X-rays, U/S, labs)? Why? @ -None What meds were considered but not given or refused? Why? @ -None Did you discuss the management of the patient with other professionals (professionals i.e. , PA, WHEAT INSPECTOR, lab, RT, psych nurse, social service agency director, dredge boat engineer, teacher, public health officer, rehabilitation caseworker)? Give summary @ -Oncology for admission as he was sent in Was smoking cessation discussed for >3mins.? @ -No Was critical care preformed (if so, how long)? @ -No Were there social determinants of health that impacted care today? How? (Homelessness, low income, unemployed, alcoholism, drug addiction, transportation, low edu. Level, literacy, decrease access to med. care, shelter, rehab)? @ -No Was there de-escalation of care discussed even if they declined (Discuss DNR or withdrawal of care, Hospice)? DNR status @ -No What co-morbidities impacted this encounter? (DM, HTN, Smoking, COPD, CAD, Cancer, CVA, ARF, Chemo, Hep., AIDS, mental health diagnosis, sleep apnea, morbid obesity)? @ -metastatic prostate cancer Was patient admitted / discharged? Hospital course, mention meds given and route, prescriptions, significant lab abnormalities, going to OR and other pertinent info. @ -Admitted for acute kidney injury, dehydration secondary to metastatic prostate cancer with recent chemotherapy. Patient has chronic anemia does not require transfusion at this time. Patient will continue IV hydration, antiemetics Undiagnosed new problem with uncertain prognosis? @ -No Drug Therapy requiring intensive monitoring for toxicity (Heparin, Nitro, Insulin, Cardizem)? @ -No Were any procedures done? @ -No Diagnosis/symptom? @ -Dehydration, acute kidney injury Acute, or Chronic, or Acute on Chronic? @ -Acute Uncomplicated (without systemic symptoms) or Complicated (systemic symptoms)? @ -[complicated Side effects of treatment? @ -No Exacerbation, Progression, or Severe Exacerbation? @ -No Poses a threat to life or bodily function? How? (Chest pain, USA, VT, pneumonia, PE, COPD, DKA, ARF, appy, cholecystitis, CVA, Diverticulitis, Homicidal, Suicidal, threat to staff... and all critical care pts) @ -No - Lab Data Result diagrams: 08/02/23 13:54 08/02/23 13:54 Lab Results 08/02/23 08/02/23 08/02/23 Range/Units 13:54 13:54 13:54 WBC 4.8 (3.8-10.6) k/uL RBC 2.59 L (4.30-5.90) m/uL Hgb 8.8 L (13.0-17.5) gm/dL Hct 27.7 L (39.0-53.0) % MCV 107.2 H (80.0-100.0) fL MCH 34.0 (25.0-35.0) pg MCHC 31.7 (31.0-37.0) g/dL RDW 17.5 H (11.5-15.5) % Plt Count 140 L (150-450) k/uL MPV 10.6 Neutrophils % 90 % Lymphocytes % 7 % Monocytes % 1 % Eosinophils % 1 % Basophils % 0 % Neutrophils # 4.4 (1.3-7.7) k/uL Lymphocytes # 0.3 L (1.0-4.8) k/uL Monocytes # 0.1 (0-1.0) k/uL Eosinophils # 0.1 (0-0.7) k/uL Basophils # 0.0 (0-0.2) k/uL Manual Slide Review Performed Hypochromasia Slight Anisocytosis Slight Macrocytosis Marked A PT 11.3 (10.0-12.5) sec INR 1.0 (<1.2) APTT 24.1 (22.0-30.0) sec Sodium 133 L (137-145) mmol/L Potassium 4.6 (3.5-5.1) mmol/L Chloride 102 (98-107) mmol/L Carbon Dioxide 18 L (22-30) mmol/L Anion Gap 13 mmol/L BUN 58 H (9-20) mg/dL Creatinine 3.20 H (0.66-1.25) mg/dL Est GFR (CKD-EPI)AfAm 21 (>60 ml/min/1.73 sqM) Est GFR (CKD-EPI)NonAf 18 (>60 ml/min/1.73 sqM) Glucose 94 (74-99) mg/dL Plasma Lactic Acid Sergo (0.7-2.0) mmol/L Calcium 8.3 L (8.4-10.2) mg/dL Magnesium 1.9 (1.6-2.3) mg/dL Total Bilirubin 0.8 (0.2-1.3) mg/dL AST 256 H (17-59) U/L ALT 122 H (4-49) U/L Alkaline Phosphatase 146 H (38-126) U/L Troponin I (0.000-0.034) ng/mL Total Protein 6.1 L (6.3-8.2) g/dL Albumin 3.0 L (3.5-5.0) g/dL Urine Color Urine Appearance (Clear) Urine pH (5.0-8.0) Ur Specific [place] (1.001-1.035) Urine Protein (Negative) Urine Glucose (UA) (Negative) Urine Ketones (Negative) Urine Blood (Negative) Urine Nitrite (Negative) Urine Bilirubin (Negative) Urine Urobilinogen (<2.0) mg/dL Ur Leukocyte Esterase (Negative) Urine RBC (0-5) /hpf Urine WBC (0-5) /hpf Ur Squamous Epith Cells (0-4) /hpf Amorphous Sediment (None) /hpf Urine Bacteria (None) /hpf Hyaline Casts (0-2) /lpf Urine Mucus (None) /hpf 08/02/23 08/02/23 08/02/23 Range/Units 13:54 13:54 13:54 WBC (3.8-10.6) k/uL RBC (4.30-5.90) m/uL Hgb (13.0-17.5) gm/dL Hct (39.0-53.0) % MCV (80.0-100.0) fL MCH (25.0-35.0) pg MCHC (31.0-37.0) g/dL RDW (11.5-15.5) % Plt Count (150-450) k/uL MPV Neutrophils % % Lymphocytes % % Monocytes % % Eosinophils % % Basophils % % Neutrophils # (1.3-7.7) k/uL Lymphocytes # (1.0-4.8) k/uL Monocytes # (0-1.0) k/uL Eosinophils # (0-0.7) k/uL Basophils # (0-0.2) k/uL Manual Slide Review Hypochromasia Anisocytosis Macrocytosis PT (10.0-12.5) sec INR (<1.2) APTT (22.0-30.0) sec Sodium (137-145) mmol/L Potassium (3.5-5.1) mmol/L Chloride (98-107) mmol/L Carbon Dioxide (22-30) mmol/L Anion Gap mmol/L BUN (9-20) mg/dL Creatinine (0.66-1.25) mg/dL Est GFR (CKD-EPI)AfAm (>60 ml/min/1.73 sqM) Est GFR (CKD-EPI)NonAf (>60 ml/min/1.73 sqM) Glucose (74-99) mg/dL Plasma Lactic Acid Sergo 1.8 (0.7-2.0) mmol/L Calcium (8.4-10.2) mg/dL Magnesium (1.6-2.3) mg/dL Total Bilirubin (0.2-1.3) mg/dL AST (17-59) U/L ALT (4-49) U/L Alkaline Phosphatase (38-126) U/L Troponin I <0.012 (0.000-0.034) ng/mL Total Protein (6.3-8.2) g/dL Albumin (3.5-5.0) g/dL Urine Color Yellow Urine Appearance Cloudy (Clear) Urine pH 5.5 (5.0-8.0) Ur Specific [place] 1.018 (1.001-1.035) Urine Protein 2+ H (Negative) Urine Glucose (UA) Trace H (Negative) Urine Ketones Negative (Negative) Urine Blood Trace H (Negative) Urine Nitrite Negative (Negative) Urine Bilirubin Negative (Negative) Urine Urobilinogen 2.0 (<2.0) mg/dL Ur Leukocyte Esterase Negative (Negative) Urine RBC 3 (0-5) /hpf Urine WBC 12 H (0-5) /hpf Ur Squamous Epith Cells 1 (0-4) /hpf Amorphous Sediment Moderate H (None) /hpf Urine Bacteria Rare H (None) /hpf Hyaline Casts 7 H (0-2) /lpf Urine Mucus Rare H (None) /hpf Disposition Clinical Impression: Dehydration, HAYLEE (acute kidney injury) Disposition: ADMITTED IP TO THIS HOSP Condition: Fair Time of Disposition: 15:21
[2023-08-02 14:13] LABS: Anisocytosis Slight; Basophils % (A) 0 %; Eosinophils # (A) 0.1 k/uL (0-0.7); Eosinophils % (A) 1 %; HCT 27.7 % (39.0-53.0); HGB 8.8 gm/dL (13.0-17.5); Hypochromasia Slight; Lymphocytes # (A) 0.3 k/uL (1.0-4.8); Lymphocytes % (A) 7 %; MCHC 31.7 g/dL (31.0-37.0); MCV 107.2 fL (80.0-100.0); Macrocytosis Marked; Mean Platelet Volume 10.6; Monocytes # (A) 0.1 k/uL (0-1.0); Monocytes % (A) 1 %; Neutrophils # (A) 4.4 k/uL (1.3-7.7); Neutrophils % (A) 90 %; Platelet Count 140 k/uL (150-450); RBC 2.59 m/uL (4.30-5.90); RDW 17.5 % (11.5-15.5); WBC 4.8 k/uL (3.8-10.6)
[2023-08-02 14:24] LABS: AST 256 U/L (17-59); African American GFR (CKD) 21 (>60 ml/min/1.73 sqM); Alkaline Phosphatase 146 U/L (38-126); Anion Gap 13 mmol/L; Blood Urea Nitrogen 58 mg/dL (9-20); Calcium 8.3 mg/dL (8.4-10.2); Carbon Dioxide 18 mmol/L (22-30); Chloride 102 mmol/L (98-107); Glucose 94 mg/dL (74-99); Magnesium 1.9 mg/dL (1.6-2.3); Non-African American GFR(CKD) 18 (>60 ml/min/1.73 sqM); Partial Thromboplastin Time 24.1 sec (22.0-30.0); Prothrombin Time 11.3 sec (10.0-12.5); Sodium 133 mmol/L (137-145); Total Bilirubin 0.8 mg/dL (0.2-1.3); Total Protein 6.1 g/dL (6.3-8.2)
[2023-08-02 14:26] LABS: ALT 122 U/L (4-49); Potassium 4.6 mmol/L (3.5-5.1)
[2023-08-02 15:17] LABS: Amorphous Sediment,Urine Moderate /hpf; Appearance,Urine Cloudy (Clear); Bacteria,Urine Rare /hpf; Bilirubin,Urine Negative (Negative); Blood,Urine Trace (Negative); Color,Urine Yellow; Glucose,Urine (UA) Trace (Negative); Hyaline Casts,Urine 7 /lpf (0-2); Ketones,Urine Negative (Negative); Leukocyte Esterase,Urine Negative (Negative); Mucus,Urine Rare /hpf; Nitrite,Urine Negative (Negative); PH, Urine 5.5 (5.0-8.0); Protein,Urine 2+ (Negative); RBC,Urine 3 /hpf (0-5); Specific Gravity,Urine 1.018 (1.001-1.035); Squamous Epithelial Cell,Urine 1 /hpf (0-4); WBC,Urine 12 /hpf (0-5)
[2023-08-02] MEDS ORDERED: NALOXONE 0.4 MG/ML 1 ML VIAL IV PRN (15:18)
[2023-08-02] MEDS ORDERED: ACETAMINOPHEN TAB 325 MG TAB PO PRN (15:18)
[2023-08-02] MEDS: SODIUM CHLORIDE 0.9% 1,000 ML IV SCH ×2 (17:56→23:01)
[2023-08-02] MEDS: ONDANSETRON 4 MG/2 ML VIAL IVP PRN (17:58)
[2023-08-02] MEDS ORDERED: ETODOLAC 300 MG CAPSULE PO PRN (19:46)
[2023-08-02] MEDS ORDERED: ONDANSETRON ODT 4 MG TAB PO PRN (19:46)
[2023-08-02] MEDS: traMADol 50 MG TAB PO PRN (20:16)
[2023-08-02] MEDS: TEMAZEPAM 15 MG CAP PO PRN (20:17)
[2023-08-03] MEDS: traMADol 50 MG TAB PO PRN ×2 (05:07→20:45)
[2023-08-03] MEDS: ONDANSETRON 4 MG/2 ML VIAL IVP PRN (06:42)
[2023-08-03] MEDS: PANTOPRAZOLE 40 MG TABLET PO SCH (08:38)
[2023-08-03 09:47] LABS: Anisocytosis Slight; Basophils % (A) 0 %; Eosinophils % (A) 1 %; HCT 25.4 % (39.0-53.0); HGB 8.1 gm/dL (13.0-17.5); Hypochromasia Marked; Lymphocytes # (A) 0.3 k/uL (1.0-4.8); Lymphocytes % (A) 6 %; MCH 35.2 pg (25.0-35.0); MCHC 31.8 g/dL (31.0-37.0); MCV 110.6 fL (80.0-100.0); Macrocytosis Marked; Mean Platelet Volume 10.7; Monocytes % (A) 1 %; Neutrophils % (A) 92 %; Platelet Count 121 k/uL (150-450); RDW 17.9 % (11.5-15.5); WBC 5.5 k/uL (3.8-10.6)
[2023-08-03 10:50] LABS: BUN/Creat Ratio 15.24 Ratio (12.00-20.00); Blood Urea Nitrogen 57.9 mg/dL (9.0-27.0); Chloride 103 mmol/L (96-109); Glucose 92 mg/dL (70-110); Potassium 4.5 mmol/L (3.5-5.5); Sodium 137 mmol/L (135-145)
[2023-08-03 10:51] LABS: Calcium 8.2 mg/dL (8.7-10.3)
--- NOTE | 2023-08-03 11:17 | P.NPCON ---
History of Present Illness - Reason for Consult acute renal failure - History of Present Illness Reason for consultation: Acute kidney injury History of present illness: Patient is a 73-year-old male seen in renal consultation for acute kidney injury. Patient's creatinine on admission was 3.2 and is up to 3.8 today. Patient's creatinine in May 2023 was 0.78. 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 Patient states he last received chemotherapy on Thursday. Patient states he developed nausea and vomiting starting Thursday itches progressively been getting worse. Patient states the vomiting was getting dark in color. He also admits to taking 2-3 Motrins daily for pain. He has been voiding. No hematuria or dysuria. Currently on normal saline at 1 25 mL an hour. He did receive 1 L normal saline bolus on admission yesterday. Denies history of diabetes. Denies history of cardiac disease. Denies family history of renal disease. No diarrhea. Oral intake has been poor the last few days. Blood pressure has been stable with lowest reading documented is 97/59. Vital signs are stable. General: No acute distress. HEENT: Head exam is unremarkable. LUNGS: No audible rhonchi or wheezes. HEART: Rate and Rhythm are regular. ABDOMEN: Nontender. EXTREMITITES: No edema. Past Medical History Past Medical History: Cancer Additional Past Medical History / Comment(s): prostate CA dx radiation tx-last radiation-last tx Apr.,pericarditis approx 25 yrs ago, small cell lung/liver cancer--first dose of new chemo 07/31/23 History of Any Multi-Drug Resistant Organisms: None Reported Past Surgical History: Tonsillectomy Additional Past Surgical History / Comment(s): Plastic surgery right side of face at 6y.o. Past Anesthesia/Blood Transfusion Reactions: No Reported Reaction Additional Past Anesthesia/Blood Transfusion Reaction / Comment(s): no hx blood transfusion Past Psychological History: No Psychological Hx Reported Smoking Status: Former smoker Past Alcohol Use History: None Reported Additional Past Alcohol Use History / Comment(s): smokes cigars started smoking at approx age 23. quit smoking cigarettes approx 14 yrs ago-1 1/2 ppd Past Drug Use History: None Reported - Past Family History Mother Family Medical History: Cancer Additional Family Medical History / Comment(s): breast X2 Father Family Medical History: Cancer Additional Family Medical History / Comment(s): prostate Medications and Allergies Home Medications Medication Instructions Recorded Confirmed Type Ibuprofen [Motrin Ib] 400 - 600 mg PO Q8H PRN 08/02/23 08/02/23 History Ketorolac [Toradol] 10 mg PO TID PRN 08/02/23 08/02/23 History Ondansetron Odt [Zofran Odt] 4 mg PO TID PRN 08/02/23 08/02/23 History Pantoprazole Sodium [Protonix] 20 mg PO BID 08/02/23 08/02/23 History Temazepam [Restoril] 30 mg PO HS 08/02/23 08/02/23 History traMADol HCL 50 mg PO BID PRN 08/02/23 08/02/23 History Allergies Allergy/AdvReac Type Severity Reaction Status Date / Time shellfish derived [Shellfish] Allergy Rash/Hives Verified 08/02/23 15:55 dronabinol [From Marinol] AdvReac Nausea & Verified 08/02/23 15:55 Vomiting Physical Exam Vitals: Vital Signs Temp Pulse Pulse Resp BP BP Pulse Ox 08/03/23 07:40 98.2 F 98 18 114/62 95 08/03/23 01:04 98.1 F 109 H 17 104/58 95 08/02/23 18:49 98.0 F 90 16 99/62 92 L 08/02/23 17:50 97.8 F 99 17 112/62 95 08/02/23 16:32 92 18 114/80 94 L 08/02/23 13:08 97.9 F 92 16 97/59 96 Intake and Output 08/02/23 08/03/23 08/03/23 22:59 06:59 14:59 Other: Voiding Method Toilet # Voids 1 1 Weight 98.43 kg Results - Lab Results Most recent lab results Calcium 8.2 mg/dL (8.7-10.3) L 08/03/23 06:06 Magnesium 2.0 mg/dL (1.5-2.4) 08/03/23 06:06 08/03/23 06:06 08/03/23 06:06 Assessment and Plan Plan: Assessment: 1. Acute kidney injury secondary to ATN secondary to hypovolemia from poor intake/vomiting and NSAIDs. Rule out obstructive uropathy. Creatinine 3.1 admission and is up to 3.8 today. Creatinine 0.78 in May 2023. 2. Small cell lung cancer with liver metastasis as well as prostate cancer. Last chemotherapy on Thursday. Oncology following. 3. Metabolic acidosis secondary to acute kidney injury. 4. Hypovolemic hyponatremia improved with IV fluids. 5. Anemia. Rule out iron deficiency. 6. Coffee-ground emesis. Surgery consulted for possible endoscopy. Plan: Maintain IV fluids. Add oral bicarbonate. Check renal ultrasound. Check bladder scan to rule out urinary retention. Check iron studies. Avoid nephrotoxins. Continue to monitor renal function and urine output. CODE STATUS discussed with patient and his . Patient wishes to be full code. 20 minutes spent. Thank you for the consultation. I will continue to follow patient with you during his hospital stay.
[2023-08-03] MEDS ORDERED: IOPAMIDOL CONTRAST (ORAL USE) VIAL PO PRN (11:40)
--- NOTE | 2023-08-03 11:40 | P.GSCN ---
History of Present Illness Consult date: 08/03/23 Reason for Consult: Intractable vomiting History of present illness: 73-year-old male with history of metastatic prostate cancer. Patient on p alliative chemotherapy. Came to the hospital because of weakness and vomiting. Per the the emesis yesterday was dark brown in color. No blood or maroon color. No black emesis. Has been vomiting daily for the last week or so. Very poor oral intake. Patient was found to have elevated BUN and creatinine. Denies abdominal pain. Mild bloating. Known liver metastasis. No history of ulcer disease. Last bowel movement 4-5 days ago. Nonbloody. No melena. Review of Systems The patient denies any acute changes in vision or hearing, no dysphagia or odynophagia, no chest pain or shortness of breath, no dysuria or hematuria, no headache, no runny nose, no rectal bleeding or melena, no unexplained weight loss Past Medical History Past Medical History: Cancer Additional Past Medical History / Comment(s): prostate CA dx radiation tx-last radiation-last tx Apr.,pericarditis approx 25 yrs ago, small cell lung/liver cancer--first dose of new chemo 07/31/23 History of Any Multi-Drug Resistant Organisms: None Reported Past Surgical History: Tonsillectomy Additional Past Surgical History / Comment(s): Plastic surgery right side of face at 6y.o. Past Anesthesia/Blood Transfusion Reactions: No Reported Reaction Additional Past Anesthesia/Blood Transfusion Reaction / Comm: no hx blood transfusion Past Psychological History: No Psychological Hx Reported Smoking Status: Former smoker Past Alcohol Use History: None Reported Additional Past Alcohol Use History / Comment(s): smokes cigars started smoking at approx age 23. quit smoking cigarettes approx 14 yrs ago-1 1/2 ppd Past Drug Use History: None Reported - Past Family History Mother Family Medical History: Cancer Additional Family Medical History / Comment(s): breast X2 Father Family Medical History: Cancer Additional Family Medical History / Comment(s): prostate Medications and Allergies Home Medications Medication Instructions Recorded Confirmed Type Ibuprofen [Motrin Ib] 400 - 600 mg PO Q8H PRN 08/02/23 08/02/23 History Ketorolac [Toradol] 10 mg PO TID PRN 08/02/23 08/02/23 History Ondansetron Odt [Zofran Odt] 4 mg PO TID PRN 08/02/23 08/02/23 History Pantoprazole Sodium [Protonix] 20 mg PO BID 08/02/23 08/02/23 History Temazepam [Restoril] 30 mg PO HS 08/02/23 08/02/23 History traMADol HCL 50 mg PO BID PRN 08/02/23 08/02/23 History Allergies Allergy/AdvReac Type Severity Reaction Status Date / Time shellfish derived [Shellfish] Allergy Rash/Hives Verified 08/02/23 15:55 dronabinol [From Marinol] AdvReac Nausea & Verified 08/02/23 15:55 Vomiting Surgical - Exam Vital Signs Temp Pulse Resp BP Pulse Ox 97.9 F 92 16 97/59 96 08/02/23 13:08 08/02/23 13:08 08/02/23 13:08 08/02/23 13:08 08/02/23 13:08 Physical exam: General: Well-developed, well-nourished HEENT: Normocephalic, sclerae nonicteric Abdomen: Mild tenderness right upper quadrant with some firmness there, mild distention Extremities: No edema Neuro: Alert and oriented Results - Labs 08/03/23 06:06 08/03/23 06:06 Abnormal Lab Results - Last 24 Hours (Table) 08/02/23 08/02/23 08/02/23 Range/Units 13:54 13:54 13:54 RBC 2.59 L (4.30-5.90) m/uL Hgb 8.8 L (13.0-17.5) gm/dL Hct 27.7 L (39.0-53.0) % MCV 107.2 H (80.0-100.0) fL MCH (25.0-35.0) pg RDW 17.5 H (11.5-15.5) % Plt Count 140 L (150-450) k/uL Lymphocytes # 0.3 L (1.0-4.8) k/uL Macrocytosis Marked A Sodium 133 L (137-145) mmol/L Carbon Dioxide 18 L (22-30) mmol/L Anion Gap (4.00-12.00) mmol/L BUN 58 H (9-20) mg/dL Creatinine 3.20 H (0.66-1.25) mg/dL Est GFR (CKD-EPI) (>=60) Calcium 8.3 L (8.4-10.2) mg/dL AST 256 H (17-59) U/L ALT 122 H (4-49) U/L Alkaline Phosphatase 146 H (38-126) U/L Total Protein 6.1 L (6.3-8.2) g/dL Albumin 3.0 L (3.5-5.0) g/dL Urine Protein 2+ H (Negative) Urine Glucose (UA) Trace H (Negative) Urine Blood Trace H (Negative) Urine WBC 12 H (0-5) /hpf Amorphous Sediment Moderate H (None) /hpf Urine Bacteria Rare H (None) /hpf Hyaline Casts 7 H (0-2) /lpf Urine Mucus Rare H (None) /hpf 08/03/23 08/03/23 Range/Units 06:06 06:06 RBC 2.30 L (4.30-5.90) m/uL Hgb 8.1 L (13.0-17.5) gm/dL Hct 25.4 L (39.0-53.0) % MCV 110.6 H (80.0-100.0) fL MCH 35.2 H (25.0-35.0) pg RDW 17.9 H (11.5-15.5) % Plt Count 121 L (150-450) k/uL Lymphocytes # 0.3 L (1.0-4.8) k/uL Macrocytosis Marked A Sodium (137-145) mmol/L Carbon Dioxide 19.0 L (22-30) mmol/L Anion Gap 15.00 H (4.00-12.00) mmol/L BUN 57.9 H (9-20) mg/dL Creatinine 3.8 H (0.66-1.25) mg/dL Est GFR (CKD-EPI) 16 L (>=60) Calcium 8.2 L (8.4-10.2) mg/dL AST (17-59) U/L ALT (4-49) U/L Alkaline Phosphatase (38-126) U/L Total Protein (6.3-8.2) g/dL Albumin (3.5-5.0) g/dL Urine Protein (Negative) Urine Glucose (UA) (Negative) Urine Blood (Negative) Urine WBC (0-5) /hpf Amorphous Sediment (None) /hpf Urine Bacteria (None) /hpf Hyaline Casts (0-2) /lpf Urine Mucus (None) /hpf Diabetes panel 08/02/23 08/03/23 Range/Units 13:54 06:06 Sodium 133 L 137 (137-145) mmol/L Potassium 4.6 4.5 (3.5-5.1) mmol/L Chloride 102 103 (98-107) mmol/L Carbon Dioxide 18 L 19.0 L (22-30) mmol/L BUN 58 H 57.9 H (9-20) mg/dL Creatinine 3.20 H 3.8 H (0.66-1.25) mg/dL Glucose 94 92 (74-99) mg/dL Calcium 8.3 L 8.2 L (8.4-10.2) mg/dL AST 256 H (17-59) U/L ALT 122 H (4-49) U/L Alkaline Phosphatase 146 H (38-126) U/L Total Protein 6.1 L (6.3-8.2) g/dL Albumin 3.0 L (3.5-5.0) g/dL Calcium panel 08/02/23 08/03/23 Range/Units 13:54 06:06 Calcium 8.3 L 8.2 L (8.4-10.2) mg/dL Albumin 3.0 L (3.5-5.0) g/dL Pituitary panel 08/02/23 08/03/23 Range/Units 13:54 06:06 Sodium 133 L 137 (137-145) mmol/L Potassium 4.6 4.5 (3.5-5.1) mmol/L Chloride 102 103 (98-107) mmol/L Carbon Dioxide 18 L 19.0 L (22-30) mmol/L BUN 58 H 57.9 H (9-20) mg/dL Creatinine 3.20 H 3.8 H (0.66-1.25) mg/dL Glucose 94 92 (74-99) mg/dL Calcium 8.3 L 8.2 L (8.4-10.2) mg/dL Adrenal panel 08/02/23 08/03/23 Range/Units 13:54 06:06 Sodium 133 L 137 (137-145) mmol/L Potassium 4.6 4.5 (3.5-5.1) mmol/L Chloride 102 103 (98-107) mmol/L Carbon Dioxide 18 L 19.0 L (22-30) mmol/L BUN 58 H 57.9 H (9-20) mg/dL Creatinine 3.20 H 3.8 H (0.66-1.25) mg/dL Glucose 94 92 (74-99) mg/dL Calcium 8.3 L 8.2 L (8.4-10.2) mg/dL Total Bilirubin 0.8 (0.2-1.3) mg/dL AST 256 H (17-59) U/L ALT 122 H (4-49) U/L Alkaline Phosphatase 146 H (38-126) U/L Total Protein 6.1 L (6.3-8.2) g/dL Albumin 3.0 L (3.5-5.0) g/dL Assessment and Plan (1) Intractable vomiting Narrative/Plan: 73-year-old male with metastatic cancer. Patient with intractable vomiting. We'll order CT abdomen and pelvis to evaluate for malignant obstruction. Current Visit: Yes Status: Acute Code(s): R11.10 - VOMITING, UNSPECIFIED SNOMED Code(s): 293360405
[2023-08-03] MEDS: ALPRAZolam 0.25 MG TAB PO PRN ×2 (12:02→22:13)
[2023-08-03] MEDS: SODIUM BICARBONATE TAB 650 MG TAB PO SCH ×2 (12:48→20:45)
--- NOTE | 2023-08-03 12:52 | US ---
EXAMINATION TYPE: US renals and bladder DATE OF EXAM: 08/03/2023 COMPARISON: NONE CLINICAL INDICATION: Male, 73 years old with history of janet; known mets from prostate CA, abn renal l abs, no renal history EXAM MEASUREMENTS: Right Kidney: 9.8 x 3.7 x 5.0 cm Left Kidney: 12.1 x 4.4 x 5.0 cm Right Kidney: cystic area seen mid pole = 2.4 x 1.9 x 1.7cm Left Kidney: cystic area seen inferior pole = 4.6 x 4.1 x 4.2cm Bladder: Not distended masslike areas seen on liver are known mets IMPRESSION: 1. Peripelvic cysts likely present bilaterally. Follow-up CT abdomen pelvis is currently scheduled.
--- NOTE | 2023-08-03 14:26 | CT ---
EXAMINATION TYPE: CT abdomen pelvis wo con DATE OF EXAM: 08/03/2023 COMPARISON: 04/23/2011 INDICATION: Intractable vomiting, prostate CA DLP: 1328.6 mGycm, Automated exposure control for dose reduction was used. CONTRAST: 0 mL of Isovue 300. Study performed with Oral Contrast TECHNIQUE: Axial images were obtained from above the diaphragm to the pubic rami in the axial plane a t 5 mm thick sections. Reconstructed images are reviewed on the computer in the coronal plane. FINDINGS: Limited CT sections are obtained the lung bases. There is a small right pleural effusion. Lung bases otherwise are clear. Coronary artery calcification is noted.. CT ABDOMEN: Some reflux into the distal esophagus is noted. Liver: Enlarged with some mild fatty infiltration is present. No discrete mass identified. Spleen: Normal Pancreas: Normal Adrenal glands: The adrenal glands are normal. Gallbladder: Normal Kidneys: No masses are evident. No hydronephrosis is present. There is a 4.4 cm cyst inferior pole left kidney. There is a mid right renal cyst measuring 2.4 cm. No renal stones are identified. Aorta: Vascular calcification is within the aorta. Inferior vena cava: Normal. Lymphadenopathy: Appears to be periaortic lymphadenopathy present. The largest is at the renal vein l evel measuring 3.[address] PELVIS: Loops of bowel within the abdomen and pelvis are normal. The patient was unable to keep oral contras t down only a small amount of contrast within the stomach. There are loops of bowel which are incom pletely distended or lack oral contrast limiting their evaluation. No dilated loops of bowel are evid ent. Appendix: Normal as visualized. Urinary bladder: Normal. Genitourinary structures: Multiple brachytherapy seeds are evident within the prostate. Osseous structures: There are extensive lytic and sclerotic lesions throughout the axial skeleton. Mu ltiple additional lesions are through the pelvis. Visualized ribs have multiple metastatic lesions. IMPRESSION: 1. Multiple sclerotic and some lytic lesions within the axial and appendicular skeleton can be evan tible with metastasis from prostate cancer. 2. Hepatomegaly. 3. Enlarged lymphadenopathy at the renal vein level. Metastatic lymph nodes should be suspected. 4. Consider PSMA PET/CT
[2023-08-03 14:48] LABS: % Iron Saturation 86.96 (15.00-50.00)
--- NOTE | 2023-08-03 15:55 | P.HPIM ---
History of Present Illness H&P Date: 08/03/23 Chief Complaint: FTT, dehydration Patient is a 73 year old male with a significant history of metastatic prostate cancer and metastatic small cell carcinoma, He is a patient of Dr. Wu Mclain. He was initially referred with rising PSA (Total 3.98) in November 2017, then found to have T1cNx Basilio 3+4=7 Adenocarcinoma of prostate. Treated with LHRH>XBRT+Brachytherapy (Dr Lassiter). He did well till Jun 2021 when rising PSA noted, had pelvic lymphadenopathy by CT Scan > had PLND > [address]+ for metastatic Prostate cancer > LHRH. Progression noted in January 2022. Bone scan positive for left scapula metastatic disease, PSMA: + for L scapula, as well as, multiple small LN groups. He was seen by Dr Delacruz and [facility]. He was advised to take part of phase III clinical trial where both arms receive LHRH+Enzulutamide and experimental arm radioactive isotope treatment as well. The patient has also discussed case with [facility]. Completed 4 cycles of Carboplatinum+Etoposide+Tecentriq. Repeat CT Scan revealed 2 new small liver lesions, prior lesion relatively stable. Bone scan showed no new lesions, but prior areas of mets has more uptake. Due to disease progression patient was started on second line treatment with zepzulca and completed cycle 1 of Zepzelca on 07/31/23. He also received IV hydration in clinic and transfused 1 unit PRBCs. Patient presented to the emergency room with complaints of progressing nausea vomiting and decreased oral intake over the last 5 days. Patient states over the last 2 days symptoms became significantly worse and was unable to tolerate any oral intake with intractable nausea vomiting. Patient is reporting s ignificant fatigue and generalized weakness. Upon admission CBC revealed WBC 5.5, hemoglobin 8.1, platelets 121,000. Creatinine 3.2, GFR 18, nephrology following. LFTs elevated. Bilirubin normal at 0.8. Received page from RN this morning stating patient had a large episode of coffee-ground emesis. Patient's states he had 3 dark-colored emesis over the last 1 day. Denies blood in stool and melena. Review of Systems 10 point ROS is negative except as stated in the HPI Past Medical History Past Medical History: Cancer Additional Past Medical History / Comment(s): prostate CA dx radiation tx-last radiation-last tx Apr.,pericarditis approx 25 yrs ago, small cell lung/liver cancer--first dose of new chemo 07/31/23 History of Any Multi-Drug Resistant Organisms: None Reported Past Surgical History: Tonsillectomy Additional Past Surgical History / Comment(s): Plastic surgery right side of face at 6y.o. Past Anesthesia/Blood Transfusion Reactions: No Reported Reaction Additional Past Anesthesia/Blood Transfusion Reaction / Comment(s): no hx blood transfusion Past Psychological History: No Psychological Hx Reported Smoking Status: Former smoker Past Alcohol Use History: None Reported Additional Past Alcohol Use History / Comment(s): smokes cigars started smoking at approx age 23. quit smoking cigarettes approx 14 yrs ago-1 1/2 ppd Past Drug Use History: None Reported - Past Family History Mother Family Medical History: Cancer Additional Family Medical History / Comment(s): breast X2 Father Family Medical History: Cancer Additional Family Medical History / Comment(s): prostate Medications and Allergies Home Medications Medication Instructions Recorded Confirmed Type Ibuprofen [Motrin Ib] 400 - 600 mg PO Q8H PRN 08/02/23 08/02/23 History Ketorolac [Toradol] 10 mg PO TID PRN 08/02/23 08/02/23 History Ondansetron Odt [Zofran Odt] 4 mg PO TID PRN 08/02/23 08/02/23 History Pantoprazole Sodium [Protonix] 20 mg PO BID 08/02/23 08/02/23 History Temazepam [Restoril] 30 mg PO HS 08/02/23 08/02/23 History traMADol HCL 50 mg PO BID PRN 08/02/23 08/02/23 History Allergies Allergy/AdvReac Type Severity Reaction Status Date / Time shellfish derived [Shellfish] Allergy Rash/Hives Verified 08/02/23 15:55 dronabinol [From Marinol] AdvReac Nausea & Verified 08/02/23 15:55 Vomiting Physical Exam Vitals: Vital Signs Temp Pulse Pulse Resp BP BP Pulse Ox 08/03/23 07:40 98.2 F 98 18 114/62 95 08/03/23 01:04 98.1 F 109 H 17 104/58 95 08/02/23 18:49 98.0 F 90 16 99/62 92 L 08/02/23 17:50 97.8 F 99 17 112/62 95 08/02/23 16:32 92 18 114/80 94 L 08/02/23 13:08 97.9 F 92 16 97/59 96 Intake and Output 08/02/23 08/03/23 08/03/23 22:59 06:59 14:59 Other: Voiding Method Toilet # Voids 1 1 Weight 98.43 kg - Constitutional General appearance: average body habitus, no acute distress - EENT Eyes: EOMI ENT: hearing grossly normal - Respiratory Respiratory: bilateral: CTA - Cardiovascular Rhythm: regular Heart sounds: normal: S1, S2 - Gastrointestinal General gastrointestinal: distended, no tenderness - Integumentary Integumentary: pale - Neurologic grossly intact - Musculoskeletal Musculoskeletal: generalized weakness - Psychiatric Psychiatric: A&O x's 3 Results CBC & Chem 7: 08/03/23 06:06 08/03/23 06:06 Labs: Abnormal Lab Results - Last 24 Hours (Table) 08/02/23 08/02/23 08/02/23 Range/Units 13:54 13:54 13:54 RBC 2.59 L (4.30-5.90) m/uL Hgb 8.8 L (13.0-17.5) gm/dL Hct 27.7 L (39.0-53.0) % MCV 107.2 H (80.0-100.0) fL MCH (25.0-35.0) pg RDW 17.5 H (11.5-15.5) % Plt Count 140 L (150-450) k/uL Lymphocytes # 0.3 L (1.0-4.8) k/uL Macrocytosis Marked A Sodium 133 L (137-145) mmol/L Carbon Dioxide 18 L (22-30) mmol/L BUN 58 H (9-20) mg/dL Creatinine 3.20 H (0.66-1.25) mg/dL Calcium 8.3 L (8.4-10.2) mg/dL AST 256 H (17-59) U/L ALT 122 H (4-49) U/L Alkaline Phosphatase 146 H (38-126) U/L Total Protein 6.1 L (6.3-8.2) g/dL Albumin 3.0 L (3.5-5.0) g/dL Urine Protein 2+ H (Negative) Urine Glucose (UA) Trace H (Negative) Urine Blood Trace H (Negative) Urine WBC 12 H (0-5) /hpf Amorphous Sediment Moderate H (None) /hpf Urine Bacteria Rare H (None) /hpf Hyaline Casts 7 H (0-2) /lpf Urine Mucus Rare H (None) /hpf 08/03/23 Range/Units 06:06 RBC 2.30 L (4.30-5.90) m/uL Hgb 8.1 L (13.0-17.5) gm/dL Hct 25.4 L (39.0-53.0) % MCV 110.6 H (80.0-100.0) fL MCH 35.2 H (25.0-35.0) pg RDW 17.9 H (11.5-15.5) % Plt Count 121 L (150-450) k/uL Lymphocytes # 0.3 L (1.0-4.8) k/uL Macrocytosis Marked A Sodium (137-145) mmol/L Carbon Dioxide (22-30) mmol/L BUN (9-20) mg/dL Creatinine (0.66-1.25) mg/dL Calcium (8.4-10.2) mg/dL AST (17-59) U/L ALT (4-49) U/L Alkaline Phosphatase (38-126) U/L Total Protein (6.3-8.2) g/dL Albumin (3.5-5.0) g/dL Urine Protein (Negative) Urine Glucose (UA) (Negative) Urine Blood (Negative) Urine WBC (0-5) /hpf Amorphous Sediment (None) /hpf Urine Bacteria (None) /hpf Hyaline Casts (0-2) /lpf Urine Mucus (None) /hpf Thrombosis Risk Factor Assmnt - DVT/VTE Prophylaxis DVT/VTE Prophylaxis: Mechanical Prophylaxis ordered - Choose All That Apply Each Factor Represents 1 point: Obesity (BMI >25) Each Risk Factor Represents 2 Points: Age 61-74 years Thrombosis Risk Factor Assessment Total Risk Factor Score: 3 Thrombosis Risk Factor Assessment Level: Moderate Risk Assessment and Plan (1) Small cell carcinoma Current Visit: Yes Status: Acute Priority: High Code(s): C80.1 - MALIGNANT (PRIMARY) NEOPLASM, UNSPECIFIED SNOMED Code(s): 39930833706562767 (2) HAYLEE (acute kidney injury) Current Visit: Yes Status: Acute Priority: High Code(s): N17.9 - ACUTE KIDNEY FAILURE, UNSPECIFIED SNOMED Code(s): 94201166 (3) Dehydration Current Visit: Yes Status: Acute Priority: High Code(s): E86.0 - DEHYDRATION SNOMED Code(s): 10677532 (4) Intractable vomiting Current Visit: Yes Status: Acute Priority: High Code(s): R11.10 - VOMITING, UNSPECIFIED SNOMED Code(s): 629231137 (5) Adenocarcinoma of prostate Current Visit: Yes Status: Acute Priority: High Code(s): C61 - MALIGNANT NEOPLASM OF PROSTATE SNOMED Code(s): 379608360 Plan: Metastatic prostate cancer and small cell carcinoma: -Fill history in HPI -Completed cycle 1 Zepzelca on 07/31/23 -Been having having decreased appetite and oral intake. Receiving IV hydration in clinic. Started on marinol -Once kidney function improved, will obtain CT CAP w/ contrast to evaluate treatment response -Clinic f/u will be scheduled upon discharge Anemia: -Upon admission CBC revealed hemoglobin 8.1, MCV 110, platelets 121,000. -Received 1 unit PRBCs on 07/31 -Reporting multiple dark colored emesis over the last 1 day -PPI ordered. Clear liquid diet -General surgery consulted for eval for EGD -Anemia workup ordered -Will continue to monitor. Please transfuse for hemoglobin less than 7 or if symptomatic HAYLEE: -Creatinine 3.2, GFR 18. Pt given 1 liter fluid bolus and continues on continuos IV hydration -Nephrology following -Renal US ordered
[2023-08-03] MEDS ORDERED: ONDANSETRON 4 MG/2 ML VIAL IVP PRN (15:57)
[2023-08-03] MEDS: SODIUM CHLORIDE 0.9% 1,000 ML IV SCH (18:39)
[2023-08-03] MEDS: TEMAZEPAM 15 MG CAP PO PRN (20:45)
[2023-08-04] MEDS: SODIUM CHLORIDE 0.9% 1,000 ML IV SCH ×2 (03:16→03:17)
[2023-08-04] MEDS: traMADol 50 MG TAB PO PRN (04:35)
[2023-08-04 06:22] LABS: Anisocytosis Slight; Basophils % (A) 0 %; Eosinophils % (A) 1 %; HCT 24.4 % (39.0-53.0); HGB 7.7 gm/dL (13.0-17.5); Hypochromasia Moderate; Lymphocytes # (A) 0.5 k/uL (1.0-4.8); Lymphocytes % (A) 8 %; MCH 34.9 pg (25.0-35.0); MCHC 31.7 g/dL (31.0-37.0); MCV 110.1 fL (80.0-100.0); Macrocytosis Marked; Mean Platelet Volume 9.5; Monocytes % (A) 1 %; Neutrophils # (A) 5.4 k/uL (1.3-7.7); Neutrophils % (A) 90 %; Platelet Count 110 k/uL (150-450); RBC 2.22 m/uL (4.30-5.90); RDW 17.9 % (11.5-15.5)
[2023-08-04 06:35] LABS: ALT 145 U/L (4-49); AST 225 U/L (17-59); African American GFR (CKD) 20 (>60 ml/min/1.73 sqM); Albumin 2.8 g/dL (3.5-5.0); Alkaline Phosphatase 144 U/L (38-126); Anion Gap 15 mmol/L; Blood Urea Nitrogen 64 mg/dL (9-20); Carbon Dioxide 16 mmol/L (22-30); Chloride 107 mmol/L (98-107); Globulin 2.8 g/dL; Glucose 93 mg/dL (74-99); Magnesium 1.9 mg/dL (1.6-2.3); Non-African American GFR(CKD) 17 (>60 ml/min/1.73 sqM); Potassium 4.5 mmol/L (3.5-5.1); Sodium 138 mmol/L (137-145); Total Bilirubin 0.7 mg/dL (0.2-1.3); Total Protein 5.6 g/dL (6.3-8.2)
[2023-08-04] MEDS: SODIUM BICARBONATE TAB 650 MG TAB PO SCH ×2 (08:58→21:16)
[2023-08-04] MEDS: PANTOPRAZOLE 40 MG TABLET PO SCH (08:58)
[2023-08-04] MEDS: DEXTROSE 5% IN WATER 1,000 ML with SODIUM BICARB (1 MEQ/ML) 150 ML IV SCH ×2 (09:03→19:51)
--- NOTE | 2023-08-04 11:05 | P.PN ---
Subjective Patient is seen in follow for acute kidney injury. Creatinine peaked at 3.8 this admission and is 3.38 today. Has been voiding. Hemodynamically stable. Oral intake poor. Vital signs are stable. General: No acute distress. HEENT: Head exam is unremarkable. LUNGS: No audible rhonchi or wheezes. HEART: Rate and Rhythm are regular. ABDOMEN: Nontender. EXTREMITITES: No edema. Objective - Vital Signs Vital signs: Vital Signs Temp 98.0 F 08/04/23 07:23 Pulse 100 08/04/23 07:23 Resp 20 08/04/23 07:23 BP 113/61 08/04/23 07:23 Pulse Ox 94 L 08/04/23 07:23 FiO2 Intake & Output 08/03/23 08/04/23 08/04/23 18:59 06:59 18:59 Intake Total 220 Output Total 1000 143 100 Balance -780 -143 -100 Intake: Oral 220 Output: Urine 600 100 100 Post Void Residual 43 Emesis 400 Other: Voiding Method Toilet Bedside Commode Bedside Commode # Voids 1 2 1 - Labs CBC & Chem 7: 08/04/23 05:28 08/04/23 05:28 Labs: Abnormal Lab Results - Last 24 Hours (Table) 08/03/23 08/04/23 08/04/23 Range/Units 10:12 05:28 05:28 RBC 2.22 L (4.30-5.90) m/uL Hgb 7.7 L (13.0-17.5) gm/dL Hct 24.4 L (39.0-53.0) % MCV 110.1 H (80.0-100.0) fL RDW 17.9 H (11.5-15.5) % Plt Count 110 L (150-450) k/uL Lymphocytes # 0.5 L (1.0-4.8) k/uL Macrocytosis Marked A Carbon Dioxide 16 L (22-30) mmol/L BUN 64 H (9-20) mg/dL Creatinine 3.38 H (0.66-1.25) mg/dL Calcium 8.0 L (8.4-10.2) mg/dL TIBC 138 L (228-460) UG/DL % Saturation 86.96 H (15.00-50.00) Transferrin 98.3 L (204.0-354.0) mg/dL Ferritin 4929.0 H (22.0-322.0) ng/mL AST 225 H (17-59) U/L ALT 145 H (4-49) U/L Alkaline Phosphatase 144 H (38-126) U/L Total Protein 5.6 L (6.3-8.2) g/dL Albumin 2.8 L (3.5-5.0) g/dL Vitamin B12 1275.0 H (200.0-944.0) pg/mL Assessment and Plan Plan: Assessment: 1. Acute kidney injury secondary to ATN secondary to hypovolemia from poor intake/vomiting and NSAIDs. No hydronephrosis noted on CAT scan. Creatinine 3.1 admission and peaked at 3.8 this admission - 3.3 today. Creatinine 0.78 in May 2023. 2. Small cell lung cancer with liver metastasis as well as prostate cancer. Last chemotherapy on Thursday. Oncology following. 3. Metabolic acidosis secondary to acute kidney injury and IV fluids. 4. Hypovolemic hyponatremia improved with IV fluids. Improved. 5. Anemia. Iron replete. 6. Coffee-ground emesis. Surgery following. CT of the abdomen and pelvis showed lymphadenopathy concerning for metastatic lymph nodes as well as lytic lesions. Plan: Change IV fluids to bicarb drip. Avoid nephrotoxins. Continue to monitor renal function and urine output. Repeat labs in the morning.
[2023-08-04] MEDS: ONDANSETRON 4 MG/2 ML VIAL IVP PRN (14:08)
--- NOTE | 2023-08-04 14:20 | P.PN ---
Subjective Progress Note Date: 08/04/23 CHIEF COMPLAINT: Intractable vomiting HISTORY OF PRESENT ILLNESS: Patient with history of metastatic prostate cancer. Patient received palliative chemotherapy. Patient having dark emesis that was brownish in color. Has been having daily NSAID use. Poor oral intake. Last bowel movement about 4 days ago. Denies any abdominal pain. Hemoglobin down from 8.1 to 7.7. Cr 3.38 computed tomography scan abdomen and pelvis no evidence of bowel obstruction. Multiple sclerotic and some lytic lesions within the axial and appendicular skeleton can be compatible with metastasis from prostate cancer PHYSICAL EXAM: VITAL SIGNS: Reviewed. GENERAL: no acute distress. ABDOMEN: Soft. Nondistended. Nontender. NEUROLOGIC: Alert and oriented. Cranial nerves II through XII grossly intact. ASSESSMENT: 1. Intractable nausea and vomiting PLAN: -Plan for possible EGD on , 08/06/[address] Geller -Continue clear liquid diet -Continue supportive care Physician Organic Section Technical Lead note has been reviewed by physician. Signing provider agrees with the documented findings, assessment, and plan of care. Objective - Vital Signs Vital signs: Vital Signs Temp 98.0 F 08/04/23 07:23 Pulse 100 08/04/23 07:23 Resp 20 08/04/23 07:23 BP 113/61 08/04/23 07:23 Pulse Ox 94 L 08/04/23 07:23 FiO2 Intake & Output 08/03/23 08/04/23 08/04/23 18:59 06:59 18:59 Intake Total 220 Output Total 1000 143 100 Balance -780 -143 -100 Intake: Oral 220 Output: Urine 600 100 100 Post Void Residual 43 Emesis 400 Other: Voiding Method Toilet Bedside Commode Bedside Commode # Voids 1 2 1 - Labs CBC & Chem 7: 08/04/23 05:28 08/04/23 05:28 Labs: Abnormal Lab Results - Last 24 Hours (Table) 08/03/23 08/04/23 08/04/23 Range/Units 10:12 05:28 05:28 RBC 2.22 L (4.30-5.90) m/uL Hgb 7.7 L (13.0-17.5) gm/dL Hct 24.4 L (39.0-53.0) % MCV 110.1 H (80.0-100.0) fL RDW 17.9 H (11.5-15.5) % Plt Count 110 L (150-450) k/uL Lymphocytes # 0.5 L (1.0-4.8) k/uL Macrocytosis Marked A Carbon Dioxide 16 L (22-30) mmol/L BUN 64 H (9-20) mg/dL Creatinine 3.38 H (0.66-1.25) mg/dL Calcium 8.0 L (8.4-10.2) mg/dL TIBC 138 L (228-460) UG/DL % Saturation 86.96 H (15.00-50.00) Transferrin 98.3 L (204.0-354.0) mg/dL Ferritin 4929.0 H (22.0-322.0) ng/mL AST 225 H (17-59) U/L ALT 145 H (4-49) U/L Alkaline Phosphatase 144 H (38-126) U/L Total Protein 5.6 L (6.3-8.2) g/dL Albumin 2.8 L (3.5-5.0) g/dL Vitamin B12 1275.0 H (200.0-944.0) pg/mL
--- NOTE | 2023-08-04 14:29 | P.PN ---
Subjective Progress Note Date: 08/04/23 Principal diagnosis: Metastatic prostate cancer. Admitted for intractable N,V Pt just got to sleep when I came to see. Family at bedside reports fewer c/o of pain since completing radiation 07/29. Emesis is projectile and is the color of "poop". Family reports he is really wore out. Objective - Vital Signs Vital signs: Vital Signs Temp 98.0 F 08/04/23 07:23 Pulse 100 08/04/23 07:23 Resp 20 08/04/23 07:23 BP 113/61 08/04/23 07:23 Pulse Ox 94 L 08/04/23 07:23 FiO2 Intake & Output 08/03/23 08/04/23 08/04/23 18:59 06:59 18:59 Intake Total 220 Output Total 1000 143 100 Balance -780 -143 -100 Intake: Oral 220 Output: Urine 600 100 100 Post Void Residual 43 Emesis 400 Other: Voiding Method Toilet Bedside Commode Bedside Commode # Voids 1 2 1 - Constitutional General appearance: Present: average body habitus, no acute distress - Respiratory Details: resp even and unlabored - Labs CBC & Chem 7: 08/04/23 05:28 08/04/23 05:28 Labs: Abnormal Lab Results - Last 24 Hours (Table) 08/03/23 08/04/23 08/04/23 Range/Units 10:12 05:28 05:28 RBC 2.22 L (4.30-5.90) m/uL Hgb 7.7 L (13.0-17.5) gm/dL Hct 24.4 L (39.0-53.0) % MCV 110.1 H (80.0-100.0) fL RDW 17.9 H (11.5-15.5) % Plt Count 110 L (150-450) k/uL Lymphocytes # 0.5 L (1.0-4.8) k/uL Macrocytosis Marked A Carbon Dioxide 16 L (22-30) mmol/L BUN 64 H (9-20) mg/dL Creatinine 3.38 H (0.66-1.25) mg/dL Calcium 8.0 L (8.4-10.2) mg/dL TIBC 138 L (228-460) UG/DL % Saturation 86.96 H (15.00-50.00) Transferrin 98.3 L (204.0-354.0) mg/dL Ferritin 4929.0 H (22.0-322.0) ng/mL AST 225 H (17-59) U/L ALT 145 H (4-49) U/L Alkaline Phosphatase 144 H (38-126) U/L Total Protein 5.6 L (6.3-8.2) g/dL Albumin 2.8 L (3.5-5.0) g/dL Vitamin B12 1275.0 H (200.0-944.0) pg/mL - Imaging and Cardiology CT scan - abdomen: report reviewed CT scan - pelvis: report reviewed Renal US report reviewed Assessment and Plan (1) Intractable vomiting Current Visit: Yes Status: Acute Priority: High Code(s): R11.10 - VOMITING, UNSPECIFIED SNOMED Code(s): 896930301 (2) HAYLEE (acute kidney injury) Current Visit: Yes Status: Acute Priority: High Code(s): N17.9 - ACUTE KIDNEY FAILURE, UNSPECIFIED SNOMED Code(s): 70474079 (3) Adenocarcinoma of prostate Current Visit: Yes Status: Acute Priority: High Code(s): C61 - MALIGNANT NEOPLASM OF PROSTATE SNOMED Code(s): 096268982 (4) Small cell carcinoma Current Visit: Yes Status: Acute Priority: High Code(s): C80.1 - MALIGNANT (PRIMARY) NEOPLASM, UNSPECIFIED SNOMED Code(s): 03227499754287700 Plan: Intractable vomiting -Reviewed case with Radiation Oncologist. Radiation field was lumbar scaral area. Based on the area radiated, this should not be related to pt current c/o. -antiemetic freq adjusted -Increased IV PPI, added oral carafate -Pt on clear liquids, do not advance diet -CTAP no clear cause for vomiting. Pending Surgery review of imaging. May need direct visualization of stomach, biopsy. D/W PA, possible EGD on Thur -Stop all NSAIDs Metastatic prostate adenocarcinoma -Currently not on any treatment of the same. PSA has been being monitored Extensive stage small cell lung carcinoma -Completed 4 cycles of carbo/MEDICAL LAB DIRECTOR/tecentriq and one dose of maintenance dose tecentriq. Unfortunately, recent disease progression. Zepzelka started and pt is s/p 1 treatment on 07/31. Chemo induced bicytopenia -WBC 7.7, WBC 6, Plt 110,000. Cont to monitor CBC, no transfusions needed today. WBC/ANC normal
[2023-08-04] MEDS: HYDROcodone/APAP 5-325MG 1 EACH TAB PO PRN (14:51)
[2023-08-04] MEDS: SUCRALFATE 1 GM TAB PO SCH ×2 (17:27→21:16)
[2023-08-04] MEDS: PANTOPRAZOLE 40 MG/10 ML VIAL IVP SCH (21:16)
[2023-08-04] MEDS: ALPRAZolam 0.25 MG TAB PO PRN (21:18)
[2023-08-05] MEDS: ONDANSETRON 4 MG/2 ML VIAL IVP PRN ×2 (03:45→08:42)
[2023-08-05] MEDS: HYDROcodone/APAP 5-325MG 1 EACH TAB PO PRN ×2 (06:05→12:30)
[2023-08-05] MEDS: PANTOPRAZOLE 40 MG/10 ML VIAL IVP SCH ×2 (08:34→21:04)
[2023-08-05] MEDS: SODIUM BICARBONATE TAB 650 MG TAB PO SCH ×2 (08:34→21:04)
[2023-08-05] MEDS: SUCRALFATE 1 GM TAB PO SCH ×4 (08:34→21:05)
[2023-08-05] MEDS: DEXTROSE 5% IN WATER 1,000 ML with SODIUM BICARB (1 MEQ/ML) 150 ML IV SCH ×2 (08:35→18:09)
--- NOTE | 2023-08-05 10:28 | P.PN ---
Subjective Patient is seen in follow for acute kidney injury. Creatinine peaked at 3.8 this admission and was 3.38 yesterday. Has been voiding. Hemodynamically stable. Oral intake poor. On clear liquid diet. Still vomiting. Vital signs are stable. General: No acute distress. HEENT: Head exam is unremarkable. LUNGS: No audible rhonchi or wheezes. HEART: Rate and Rhythm are regular. ABDOMEN: Nontender. EXTREMITITES: No edema. Objective - Vital Signs Vital signs: Vital Signs Temp 98.5 F 08/05/23 07:08 Pulse 95 08/05/23 07:08 Resp 17 08/05/23 07:08 BP 96/50 08/05/23 07:08 Pulse Ox 92 L 08/05/23 07:08 FiO2 Intake & Output 08/04/23 08/05/23 08/05/23 18:59 06:59 18:59 Output Total 200 100 50 Balance -200 -100 -50 Output: Urine 200 100 50 Other: Voiding Method Bedside Commode Bedside Commode Urinal # Voids 1 - Labs CBC & Chem 7: 08/04/23 05:28 08/04/23 05:28 Labs: Microbiology - Last 24 Hours (Table) 08/03/23 15:00 Urine Culture - Final Urine,Voided Assessment and Plan Plan: Assessment: 1. Acute kidney injury secondary to ATN secondary to hypovolemia from poor intake/vomiting and NSAIDs. No hydronephrosis noted on CAT scan. Creatinine 3.1 admission and peaked at 3.8 this admission - 3.38 yesterday. Creatinine 0.78 in May 2023. 2. Small cell lung cancer with liver metastasis as well as prostate cancer. Last chemotherapy on Thursday. Oncology following. 3. Metabolic acidosis secondary to acute kidney injury and IV fluids. 4. Hypovolemic hyponatremia improved with IV fluids. Improved. 5. Anemia. Iron replete. 6. Coffee-ground emesis. Surgery following. CT of the abdomen and pelvis showed lymphadenopathy concerning for metastatic lymph nodes as well as lytic lesions. EGD tomorrow. Plan: Maintain bicarb drip. Follow up morning labs. Avoid nephrotoxins. Continue to monitor renal function and urine output.
[2023-08-05 11:14] LABS: HCT 22.9 % (39.6-50.0); HGB 6.9 g/dL (13.0-17.0); MCHC 30.1 g/dL (32.0-37.0); MCV 109.6 FL (80.0-97.0); Mean Platelet Volume 11.6 FL (9.5-12.2); NRBC Per 100 WBC 0 X 10*3/uL (0.00-0.01); Platelet Count 85 X 10*3/uL (140-440); RBC 2.09 X 10*6/uL (4.40-5.60); RDW 19.8 % (11.5-14.5); WBC 4.43 X 10*3/uL (4.50-10.00)
[2023-08-05 11:18] LABS: BUN/Creat Ratio 17.25 Ratio (12.00-20.00); Calcium 8.2 mg/dL (8.7-10.3); Carbon Dioxide 19.7 mmol/L (21.6-31.8); Chloride 101 mmol/L (96-109); Glucose 112 mg/dL (70-110); Magnesium 2.1 mg/dL (1.5-2.4); Potassium 4.5 mmol/L (3.5-5.5); Sodium 137 mmol/L (135-145)
[2023-08-05] MEDS: ALPRAZolam 0.25 MG TAB PO PRN (12:30)
[2023-08-05] MEDS ORDERED: DESMOPRESSIN ACETATE 26 MCG in SODIUM CHLORIDE 0.9% 50 ML IVPB ONE (13:00)
--- NOTE | 2023-08-05 13:35 | MR ---
EXAMINATION TYPE: MR brain wo con DATE OF EXAM: 08/05/2023 COMPARISON: None HISTORY: Metastatic prostate cancer, evaluate for brain mets. CONTRAST: None TECHNIQUE: Multiplanar, multiecho imaging on a 3.0 Rhea magnet is performed through the brain. Stud y is performed within 24 hours of arrival to the hospital. The craniovertebral junction is normal. The pituitary is normal. Diffusion-weighted imaging is performed. No abnormal hyperintensity is present to suggest an acute i ntracranial infarct or acute ischemic change. Some minimal white matter change may be in the deep white matter of the frontal lobes. No mass effect is evident. No additional suspicious signal. Study is without intravenous contrast mass some limitat ion. Ventricles and sulci are appropriate for the patient age. IMPRESSION: 1. No suspicious changes to suggest metastatic disease. 2. Minimal chronic appearing periventricular white matter changes bilateral frontal lobes. This does not appear to be out of portion to the patient's age.
--- NOTE | 2023-08-05 15:22 | P.PN ---
Subjective Progress Note Date: 08/05/23 CHIEF COMPLAINT: Intractable vomiting HISTORY OF PRESENT ILLNESS: Patient with history of metastatic prostate cancer. Patient received palliative chemotherapy. Patient having dark emesis that was brownish in color. Has been having daily NSAID use. Poor oral intake. Patient denies any abdominal pain. He still reporting nausea. He's had no further vomiting. Hemoglobin did drop to 6.9 from 7.7. Cr up to 4.0 followed by nephrology PHYSICAL EXAM: VITAL SIGNS: Reviewed. GENERAL: no acute distress. ABDOMEN: Soft. Nondistended. Nontender. NEUROLOGIC: Alert and oriented. Cranial nerves II through XII grossly intact. ASSESSMENT: 1. Intractable nausea and vomiting 2. Anemia PLAN: -Patient scheduled for EGD tomorrow with Dr. jackman -Nothing by mouth after midnight -Agree with blood transfusion for hemoglobin of 6.9 -Repeat CBC in a.m. Physician Cloth Opener Hand note has been reviewed by physician. Signing provider agrees with the documented findings, assessment, and plan of care. Objective - Vital Signs Vital signs: Vital Signs Temp 98.3 F 08/05/23 12:30 Pulse 96 08/05/23 12:30 Resp 17 08/05/23 12:30 BP 95/55 08/05/23 12:30 Pulse Ox 91 L 08/05/23 12:30 FiO2 Intake & Output 08/04/23 08/05/23 08/05/23 18:59 06:59 18:59 Output Total 200 100 50 Balance -200 -100 -50 Output: Urine 200 100 50 Other: Voiding Method Bedside Commode Bedside Commode Urinal Urinal # Voids 1 - Labs CBC & Chem 7: 08/05/23 06:16 08/05/23 06:16 Labs: Abnormal Lab Results - Last 24 Hours (Table) 08/05/23 08/05/23 08/05/23 Range/Units 06:16 06:16 12:11 WBC 4.43 L (4.50-10.00) X 10*3/uL RBC 2.09 L (4.40-5.60) X 10*6/uL Hgb 6.9 A* (13.0-17.0) g/dL Hct 22.9 L (39.6-50.0) % MCV 109.6 H (80.0-97.0) FL MCH 33.0 H (27.0-32.0) pg MCHC 30.1 L (32.0-37.0) g/dL RDW 19.8 H (11.5-14.5) % Plt Count 85 L (140-440) X 10*3/uL Carbon Dioxide 19.7 L (21.6-31.8) mmol/L Anion Gap 16.30 H (4.00-12.00) mmol/L BUN 69.0 H (9.0-27.0) mg/dL Creatinine 4.0 H (0.6-1.5) mg/dL Est GFR (CKD-EPI) 15 L (>=60) Glucose 112 H (70-110) mg/dL Calcium 8.2 L (8.7-10.3) mg/dL Crossmatch See Detail Microbiology - Last 24 Hours (Table) 08/03/23 15:00 Urine Culture - Final Urine,Voided
[2023-08-05] MEDS: TEMAZEPAM 15 MG CAP PO PRN (21:04)
--- NOTE | 2023-08-05 21:28 | P.PN ---
Subjective Progress Note Date: 08/05/23 -No acute events overnight -MRI brain without contrast with no evidence of intracranial metastases -Received 1 unit of irrigated packed red blood cells for hemoglobin 6.9 -He continues to have intermittent nausea and fatigue Objective - Vital Signs Vital signs: Vital Signs Temp 97.5 F L 08/05/23 20:00 Pulse 67 08/05/23 20:00 Resp 16 08/05/23 20:00 BP 103/42 08/05/23 20:00 Pulse Ox 94 L 08/05/23 20:00 FiO2 Intake & Output 08/05/23 08/05/23 08/06/23 06:59 18:59 06:59 Intake Total 310 Output Total 100 50 Balance -100 260 Intake: Blood Product 310 Rc Irr As1 Unit 310 [id number] Output: Urine 100 50 Other: Voiding Method Bedside Commode Urinal Urinal # Bowel Movements 1 - Constitutional Constitutional Comment(s): Fatigued appearing, more alert on today's examination - EENT Eyes: Present: EOMI - Respiratory Details: Nonlabored breathing - Cardiovascular Details: Warm and well-perfused - Gastrointestinal General gastrointestinal: Present: soft. Absent: distended - Integumentary Integumentary: Present: pale - Neurologic Neurologic: Absent: focal deficits - Labs CBC & Chem 7: 08/05/23 06:16 08/05/23 06:16 Labs: Abnormal Lab Results - Last 24 Hours (Table) 08/05/23 08/05/23 08/05/23 Range/Units 06:16 06:16 12:11 WBC 4.43 L (4.50-10.00) X 10*3/uL RBC 2.09 L (4.40-5.60) X 10*6/uL Hgb 6.9 A* (13.0-17.0) g/dL Hct 22.9 L (39.6-50.0) % MCV 109.6 H (80.0-97.0) FL MCH 33.0 H (27.0-32.0) pg MCHC 30.1 L (32.0-37.0) g/dL RDW 19.8 H (11.5-14.5) % Plt Count 85 L (140-440) X 10*3/uL Carbon Dioxide 19.7 L (21.6-31.8) mmol/L Anion Gap 16.30 H (4.00-12.00) mmol/L BUN 69.0 H (9.0-27.0) mg/dL Creatinine 4.0 H (0.6-1.5) mg/dL Est GFR (CKD-EPI) 15 L (>=60) Glucose 112 H (70-110) mg/dL Calcium 8.2 L (8.7-10.3) mg/dL Crossmatch See Detail Microbiology - Last 24 Hours (Table) 08/03/23 15:00 Urine Culture - Final Urine,Voided - Imaging and Cardiology MRI - head: report reviewed Assessment and Plan (1) HAYLEE (acute kidney injury) Current Visit: Yes Status: Acute Priority: High Code(s): N17.9 - ACUTE KIDNEY FAILURE, UNSPECIFIED SNOMED Code(s): 54106894 (2) Intractable vomiting Current Visit: Yes Status: Acute Priority: High Code(s): R11.10 - VOMITING, UNSPECIFIED SNOMED Code(s): 466373849 (3) Small cell carcinoma Current Visit: Yes Status: Acute Priority: High Code(s): C80.1 - MALIGNANT (PRIMARY) NEOPLASM, UNSPECIFIED SNOMED Code(s): 27172622038115238 (4) Adenocarcinoma of prostate Current Visit: Yes Status: Acute Priority: High Code(s): C61 - MALIGNANT NEOPLASM OF PROSTATE SNOMED Code(s): 168797013 Plan: Intractable vomiting -Reviewed case with Radiation Oncologist. Radiation field was lumbar scaral area. Based on the area radiated, this should not be related to pt current c/o. -Antiemetic freq adjusted -NSAIDs stopped -Increased IV PPI, added oral carafate -Pt on clear liquids, do not advance diet -MRI brain negative for intracranial metastases -CT A/P no clear cause for vomiting. EGD scheduled for 08/06/2003 HAYLEE -Creatinine 4 on today's labs -Continues on sodium bicarbonate per nephrology -Uric acid and phosphorus ordered to assess for tumor lysis given recent cycle 1 of lurbinectedin on 07/31/2023 -Discussed with his primary oncologist regarding the possibility of immunotherapy induced nephritis as he received atezolizumab within the past month -Trial of high-dose steroids of 1 to 2 mg/kg/day could be considered if no other etiology is identified Metastatic prostate adenocarcinoma -Currently not on any treatment of the same. PSA has been being monitored Extensive stage small cell lung carcinoma -Completed 4 cycles of carbo/MANAGER METROLOGY/tecentriq and one dose of maintenance dose tecentriq. Unfortunately, recent disease progression. Kaleigh started and pt is s/p 1 treatment on 07/31/2023 Chemo induced bicytopenia -Hemoglobin 6.9 with platelets 85 on today's labs -1 unit irradiated packed red blood cells transfused -Continue to monitor CBC daily -Transfuse for hemoglobin less than 7 and/or platelets less than 10,000 and/or bleeding Goals of care/disposition -I did discuss hospital course hospital course , daughter, and son at bedside -Upon leaving the room, I did have further discussion with his daughter and son -At this time, I did discuss my biggest concerns of unexplained HAYLEE and persistent nausea -We did discuss that we are still looking to potentially reversible etiologies -She did inquire into possibility of home care as well as potentially hospice -We did discuss hospice as focusing more on symptoms as opposed to aggressive treatments, labs, and imaging -For now, we will continue with current plan of care as stated above, but were agreeable with the concept of hospice if no reversible etiologies were identified Adelaida Mclain MD Time with Patient: Greater than 30
[2023-08-05 23:34] LABS: Phosphorus 4.8 mg/dL (2.4-5.1)
[2023-08-05 23:58] LABS: Uric Acid 22.4 mg/dL (3.7-8.7)
[2023-08-06] MEDS: HYDROcodone/APAP 5-325MG 1 EACH TAB PO PRN ×3 (00:17→19:49)
[2023-08-06] MEDS ORDERED: RASBURICASE 6 MG in SODIUM CHLORIDE 0.9% 46 ML IV ONE ×2 (01:00→14:00)
[2023-08-06] MEDS: DEXTROSE 5% IN WATER 1,000 ML with SODIUM BICARB (1 MEQ/ML) 150 ML IV SCH (06:05)
[2023-08-06 06:15] LABS: Anisocytosis Slight; Basophils % (A) 0 %; Eosinophils % (A) 1 %; HCT 24.1 % (39.0-53.0); HGB 8.2 gm/dL (13.0-17.5); Lymphocytes # (A) 0.5 k/uL (1.0-4.8); Lymphocytes % (A) 15 %; MCH 35.4 pg (25.0-35.0); MCHC 34.1 g/dL (31.0-37.0); Macrocytosis Marked; Mean Platelet Volume 9.7; Monocytes % (A) 1 %; Neutrophils % (A) 81 %; RBC 2.32 m/uL (4.30-5.90); RDW 18.7 % (11.5-15.5); WBC 3.6 k/uL (3.8-10.6)
[2023-08-06 06:20] LABS: MCV 103.8 fL (80.0-100.0); Platelet Count 77 k/uL (150-450)
[2023-08-06 06:53] LABS: African American GFR (CKD) 14 (>60 ml/min/1.73 sqM); Anion Gap 13 mmol/L; Blood Urea Nitrogen 79 mg/dL (9-20); Calcium 7.9 mg/dL (8.4-10.2); Carbon Dioxide 23 mmol/L (22-30); Chloride 96 mmol/L (98-107); Glucose 108 mg/dL (74-99); Magnesium 1.9 mg/dL (1.6-2.3); Non-African American GFR(CKD) 12 (>60 ml/min/1.73 sqM); Phosphorus 5.5 mg/dL (2.5-4.5); Potassium 4.3 mmol/L (3.5-5.1); Sodium 132 mmol/L (137-145)
[2023-08-06 07:28] LABS: Uric Acid 20.4 mg/dL (3.5-8.5)
[2023-08-06] MEDS: SUCRALFATE 1 GM TAB PO SCH ×4 (07:56→20:56)
[2023-08-06] MEDS: PANTOPRAZOLE 40 MG/10 ML VIAL IVP SCH ×2 (08:07→20:04)
[2023-08-06] MEDS: SODIUM BICARBONATE TAB 650 MG TAB PO SCH ×2 (08:07→20:56)
[2023-08-06] MEDS ORDERED: FUROSEMIDE 10 MG/ML 10 ML VIAL IV STA (09:54)
--- NOTE | 2023-08-06 10:51 | P.PN ---
Subjective Progress Note Date: 08/06/23 CHIEF COMPLAINT: Intractable vomiting HISTORY OF PRESENT ILLNESS: Patient with history of metastatic prostate cancer. Patient received palliative chemotherapy. Patient does report nausea. No vomiting. Hemoglobin did go up from 6.9-8.2 after transfusion of 1 unit of blood. Afebrile. WBC is 3.6 Hgb 8.2 platelets 77 sodium is 132 potassium 4.3 creatinine is up at 4.54. Elevated Uric acid 20.4 PHYSICAL EXAM: VITAL SIGNS: Reviewed. GENERAL: no acute distress. ABDOMEN: Soft. Nondistended. Nontender. ASSESSMENT: 1. Intractable nausea and vomiting 2. Anemia PLAN: -Patient scheduled for EGD today with Dr. Geller Physician Gas Burner Operator note has been reviewed by physician. Signing provider agrees with the documented findings, assessment, and plan of care. Objective - Vital Signs Vital signs: Vital Signs Temp 97.6 F 08/06/23 07:11 Pulse 96 08/06/23 07:11 Resp 16 08/06/23 07:11 BP 85/40 08/06/23 07:11 Pulse Ox 93 L 08/06/23 07:11 FiO2 Intake & Output 08/05/23 08/06/23 08/06/23 18:59 06:59 18:59 Intake Total 310 0 Output Total 50 Balance 260 0 Intake: Oral 0 Blood Product 310 Rc Irr As1 Unit 310 [id number] Output: Urine 50 Other: Voiding Method Urinal Indwelling Catheter # Bowel Movements 1 - Labs CBC & Chem 7: 08/06/23 05:34 08/06/23 05:34 Labs: Abnormal Lab Results - Last 24 Hours (Table) 08/03/23 08/05/23 08/05/23 Range/Units 10:12 06:16 06:16 WBC 4.43 L (4.50-10.00) X 10*3/uL RBC 2.09 L (4.40-5.60) X 10*6/uL Hgb 6.9 A* (13.0-17.0) g/dL Hct 22.9 L (39.6-50.0) % MCV 109.6 H (80.0-97.0) FL MCH 33.0 H (27.0-32.0) pg MCHC 30.1 L (32.0-37.0) g/dL RDW 19.8 H (11.5-14.5) % Plt Count 85 L (140-440) X 10*3/uL Lymphocytes # (1.0-4.8) k/uL Macrocytosis Sodium (137-145) mmol/L Chloride (98-107) mmol/L Carbon Dioxide 19.7 L (21.6-31.8) mmol/L Anion Gap 16.30 H (4.00-12.00) mmol/L BUN 69.0 H (9.0-27.0) mg/dL Creatinine 4.0 H (0.6-1.5) mg/dL Est GFR (CKD-EPI) 15 L (>=60) Glucose 112 H (70-110) mg/dL Uric Acid (3.7-8.7) mg/dL Calcium 8.2 L (8.7-10.3) mg/dL Phosphorus (2.5-4.5) mg/dL Methylmalonic Acid 0.72 H (<0.40) umol/L Crossmatch 08/05/23 08/05/23 08/06/23 Range/Units 06:16 12:11 05:34 WBC 3.6 L (4.50-10.00) X 10*3/uL RBC 2.32 L (4.40-5.60) X 10*6/uL Hgb 8.2 L (13.0-17.0) g/dL Hct 24.1 L (39.6-50.0) % MCV 103.8 H D (80.0-97.0) FL MCH 35.4 H (27.0-32.0) pg MCHC (32.0-37.0) g/dL RDW 18.7 H (11.5-14.5) % Plt Count 77 L (140-440) X 10*3/uL Lymphocytes # 0.5 L (1.0-4.8) k/uL Macrocytosis Marked A Sodium (137-145) mmol/L Chloride (98-107) mmol/L Carbon Dioxide (21.6-31.8) mmol/L Anion Gap (4.00-12.00) mmol/L BUN (9.0-27.0) mg/dL Creatinine (0.6-1.5) mg/dL Est GFR (CKD-EPI) (>=60) Glucose (70-110) mg/dL Uric Acid 22.4 A* (3.7-8.7) mg/dL Calcium (8.7-10.3) mg/dL Phosphorus (2.5-4.5) mg/dL Methylmalonic Acid (<0.40) umol/L Crossmatch See Detail 08/06/23 Range/Units 05:34 WBC (4.50-10.00) X 10*3/uL RBC (4.40-5.60) X 10*6/uL Hgb (13.0-17.0) g/dL Hct (39.6-50.0) % MCV (80.0-97.0) FL MCH (27.0-32.0) pg MCHC (32.0-37.0) g/dL RDW (11.5-14.5) % Plt Count (140-440) X 10*3/uL Lymphocytes # (1.0-4.8) k/uL Macrocytosis Sodium 132 L (137-145) mmol/L Chloride 96 L (98-107) mmol/L Carbon Dioxide (21.6-31.8) mmol/L Anion Gap (4.00-12.00) mmol/L BUN 79 H (9.0-27.0) mg/dL Creatinine 4.54 H (0.6-1.5) mg/dL Est GFR (CKD-EPI) (>=60) Glucose 108 H (70-110) mg/dL Uric Acid 20.4 H* (3.7-8.7) mg/dL Calcium 7.9 L (8.7-10.3) mg/dL Phosphorus 5.5 H (2.5-4.5) mg/dL Methylmalonic Acid (<0.40) umol/L Crossmatch
--- NOTE | 2023-08-06 11:46 | P.PN ---
Subjective Patient is seen in follow for acute kidney injury. Renal function worsening. Creatinine 4.54 today. Has Keller catheter. Oliguric. present at bedside. Vital signs are stable. Blood pressure on the lower side. General: No acute distress. HEENT: Head exam is unremarkable. LUNGS: No audible rhonchi or wheezes. HEART: Rate and Rhythm are regular. ABDOMEN: Nontender. EXTREMITITES: 2+ edema. Objective - Vital Signs Vital signs: Vital Signs Temp 97.6 F 08/06/23 07:11 Pulse 96 08/06/23 07:11 Resp 16 08/06/23 07:11 BP 85/40 08/06/23 07:11 Pulse Ox 93 L 08/06/23 07:11 FiO2 Intake & Output 08/05/23 08/06/23 08/06/23 18:59 06:59 18:59 Intake Total 310 0 Output Total 50 Balance 260 0 Intake: Oral 0 Blood Product 310 Rc Irr As1 Unit 310 [id number] Output: Urine 50 Other: Voiding Method Urinal Indwelling Catheter Indwelling Catheter # Bowel Movements 1 - Labs CBC & Chem 7: 08/06/23 05:34 08/06/23 05:34 Labs: Abnormal Lab Results - Last 24 Hours (Table) 08/03/23 08/05/23 08/05/23 Range/Units 10:12 06:16 12:11 WBC (3.8-10.6) k/uL RBC (4.30-5.90) m/uL Hgb (13.0-17.5) gm/dL Hct (39.0-53.0) % MCV (80.0-100.0) fL MCH (25.0-35.0) pg RDW (11.5-15.5) % Plt Count (150-450) k/uL Lymphocytes # (1.0-4.8) k/uL Macrocytosis Sodium (137-145) mmol/L Chloride (98-107) mmol/L BUN (9-20) mg/dL Creatinine (0.66-1.25) mg/dL Glucose (74-99) mg/dL Uric Acid 22.4 A* (3.7-8.7) mg/dL Calcium (8.4-10.2) mg/dL Phosphorus (2.5-4.5) mg/dL Methylmalonic Acid 0.72 H (<0.40) umol/L Crossmatch See Detail 08/06/23 08/06/23 Range/Units 05:34 05:34 WBC 3.6 L (3.8-10.6) k/uL RBC 2.32 L (4.30-5.90) m/uL Hgb 8.2 L (13.0-17.5) gm/dL Hct 24.1 L (39.0-53.0) % MCV 103.8 H D (80.0-100.0) fL MCH 35.4 H (25.0-35.0) pg RDW 18.7 H (11.5-15.5) % Plt Count 77 L (150-450) k/uL Lymphocytes # 0.5 L (1.0-4.8) k/uL Macrocytosis Marked A Sodium 132 L (137-145) mmol/L Chloride 96 L (98-107) mmol/L BUN 79 H (9-20) mg/dL Creatinine 4.54 H (0.66-1.25) mg/dL Glucose 108 H (74-99) mg/dL Uric Acid 20.4 H* (3.7-8.7) mg/dL Calcium 7.9 L (8.4-10.2) mg/dL Phosphorus 5.5 H (2.5-4.5) mg/dL Methylmalonic Acid (<0.40) umol/L Crossmatch Assessment and Plan Plan: Assessment: 1. Acute kidney injury secondary to ATN secondary to hypovolemia from poor intake/vomiting and NSAIDs. Component of anemia. Concern for chemotherapy/immunotherapy-induced kidney injury. Also concern for tumor lysis syndrome although potassium has been normal and phosphorus was 4.8 dated 08/05/2023. Uric acid noted to be high at 22.4 and calcium low. No hydronephrosis noted on CAT scan. Creatinine up to 4.54 today. Oliguric. Creatinine 0.78 in May 2023. 2. Small cell lung cancer with liver metastasis as well as prostate cancer. Last chemotherapy on Thursday. Oncology following. 3. Metabolic acidosis secondary to acute kidney injury and IV fluids. Improved with bicarb drip. 4. Hyponatremia. Initially hypovolemic but now hypervolemic. 5. Anemia. Iron replete. s/p pRBC this admission. Also received IV DDAVP. 6. Coffee-ground emesis. Surgery following. CT of the abdomen and pelvis showed lymphadenopathy concerning for metastatic lymph nodes as well as lytic lesions. EGD today. 7. Volume overload. 8. Hyperphosphatemia secondary to acute kidney injury, oliguria. Phosphorus was normal at 4.8 dated 08/05/2023. 9. Hyperuricemia. Possibly from tumor lysis syndrome. Received rasburicase last night and scheduled to receive another dose today. Plan: Hep-Lock IV fluids. Lasix 80 mg IV once now. Add phoslo with meals. Maintain Keller catheter. Strict I's and O's. EGD today. Discussed with patient and his present at bedside the need for renal replacement therapy due to oliguria and volume overload. Await final decision from patient/family before proceeding with dialysis catheter placement. Life-threatening risk of not doing hemodialysis, such as hyperkalemia, worsening volume overload, were all discussed with patient and his . Also discussed that dialysis may not be permanent and renal function may recover over time. Aggressive measures versus hospice were also discussed briefly. Prognosis guarded.
--- NOTE | 2023-08-06 16:15 | P.GSCN ---
History of Present Illness History of present illness: 73-year-old gentleman I was consulted for placement of urgent dialysis catheter. Patient is oliguric graft medical history patient has a small cell graft patient also has history of see of the prostate with metastases Chest few crackles the lung bases and isn't bradycardic rhythm Abdomen soft nontender Vascular femorals are 1+ plan is placement of the dialysis catheter Past Medical History Past Medical History: Cancer Additional Past Medical History / Comment(s): prostate CA dx radiation tx-last radiation-last tx Apr.,pericarditis approx 25 yrs ago, small cell lung/liver cancer--first dose of new chemo 07/31/23 History of Any Multi-Drug Resistant Organisms: None Reported Past Surgical History: Tonsillectomy Additional Past Surgical History / Comment(s): Plastic surgery right side of face at 6y.o. Past Anesthesia/Blood Transfusion Reactions: No Reported Reaction Additional Past Anesthesia/Blood Transfusion Reaction / Comm: no hx blood transfusion Past Psychological History: No Psychological Hx Reported Smoking Status: Former smoker Past Alcohol Use History: None Reported Additional Past Alcohol Use History / Comment(s): smokes cigars started smoking at approx age 23. quit smoking cigarettes approx 14 yrs ago-1 1/2 ppd Past Drug Use History: None Reported - Past Family History Mother Family Medical History: Cancer Additional Family Medical History / Comment(s): breast X2 Father Family Medical History: Cancer Additional Family Medical History / Comment(s): prostate Medications and Allergies Home Medications Medication Instructions Recorded Confirmed Type Ibuprofen [Motrin Ib] 400 - 600 mg PO Q8H PRN 08/02/23 08/02/23 History Ketorolac [Toradol] 10 mg PO TID PRN 08/02/23 08/02/23 History Ondansetron Odt [Zofran Odt] 4 mg PO TID PRN 08/02/23 08/02/23 History Pantoprazole Sodium [Protonix] 20 mg PO BID 08/02/23 08/02/23 History Temazepam [Restoril] 30 mg PO HS 08/02/23 08/02/23 History traMADol HCL 50 mg PO BID PRN 08/02/23 08/02/23 History Allergies Allergy/AdvReac Type Severity Reaction Status Date / Time shellfish derived [Shellfish] Allergy Rash/Hives Verified 08/02/23 15:55 dronabinol [From Marinol] AdvReac Nausea & Verified 08/02/23 15:55 Vomiting Surgical - Exam Vital Signs Temp Pulse Resp BP Pulse Ox 97.9 F 92 16 97/59 96 08/02/23 13:08 08/02/23 13:08 08/02/23 13:08 08/02/23 13:08 08/02/23 13:08 Results - Labs 08/06/23 05:34 08/06/23 05:34 Abnormal Lab Results - Last 24 Hours (Table) 08/03/23 08/05/23 08/05/23 Range/Units 10:12 06:16 12:11 WBC (3.8-10.6) k/uL RBC (4.30-5.90) m/uL Hgb (13.0-17.5) gm/dL Hct (39.0-53.0) % MCV (80.0-100.0) fL MCH (25.0-35.0) pg RDW (11.5-15.5) % Plt Count (150-450) k/uL Lymphocytes # (1.0-4.8) k/uL Macrocytosis Sodium (137-145) mmol/L Chloride (98-107) mmol/L BUN (9-20) mg/dL Creatinine (0.66-1.25) mg/dL Glucose (74-99) mg/dL Uric Acid 22.4 A* (3.7-8.7) mg/dL Calcium (8.4-10.2) mg/dL Phosphorus (2.5-4.5) mg/dL Methylmalonic Acid 0.72 H (<0.40) umol/L Crossmatch See Detail 08/06/23 08/06/23 Range/Units 05:34 05:34 WBC 3.6 L (3.8-10.6) k/uL RBC 2.32 L (4.30-5.90) m/uL Hgb 8.2 L (13.0-17.5) gm/dL Hct 24.1 L (39.0-53.0) % MCV 103.8 H D (80.0-100.0) fL MCH 35.4 H (25.0-35.0) pg RDW 18.7 H (11.5-15.5) % Plt Count 77 L (150-450) k/uL Lymphocytes # 0.5 L (1.0-4.8) k/uL Macrocytosis Marked A Sodium 132 L (137-145) mmol/L Chloride 96 L (98-107) mmol/L BUN 79 H (9-20) mg/dL Creatinine 4.54 H (0.66-1.25) mg/dL Glucose 108 H (74-99) mg/dL Uric Acid 20.4 H* (3.7-8.7) mg/dL Calcium 7.9 L (8.4-10.2) mg/dL Phosphorus 5.5 H (2.5-4.5) mg/dL Methylmalonic Acid (<0.40) umol/L Crossmatch Diabetes panel 08/06/23 Range/Units 05:34 Sodium 132 L (137-145) mmol/L Potassium 4.3 (3.5-5.1) mmol/L Chloride 96 L (98-107) mmol/L Carbon Dioxide 23 (22-30) mmol/L BUN 79 H (9-20) mg/dL Creatinine 4.54 H (0.66-1.25) mg/dL Glucose 108 H (74-99) mg/dL Calcium 7.9 L (8.4-10.2) mg/dL Calcium panel 08/05/23 08/06/23 Range/Units 06:16 05:34 Calcium 7.9 L (8.4-10.2) mg/dL Phosphorus 4.8 5.5 H (2.4-5.1) mg/dL Pituitary panel 08/06/23 Range/Units 05:34 Sodium 132 L (137-145) mmol/L Potassium 4.3 (3.5-5.1) mmol/L Chloride 96 L (98-107) mmol/L Carbon Dioxide 23 (22-30) mmol/L BUN 79 H (9-20) mg/dL Creatinine 4.54 H (0.66-1.25) mg/dL Glucose 108 H (74-99) mg/dL Calcium 7.9 L (8.4-10.2) mg/dL Adrenal panel 08/06/23 Range/Units 05:34 Sodium 132 L (137-145) mmol/L Potassium 4.3 (3.5-5.1) mmol/L Chloride 96 L (98-107) mmol/L Carbon Dioxide 23 (22-30) mmol/L BUN 79 H (9-20) mg/dL Creatinine 4.54 H (0.66-1.25) mg/dL Glucose 108 H (74-99) mg/dL Calcium 7.9 L (8.4-10.2) mg/dL
[2023-08-06 16:38] LABS: Glucose,Whole Blood 111 mg/dL (70-110)
[2023-08-06] MEDS ORDERED: HEPARIN SODIUM 1,000 UN/ML (10ML VL) MISCELLANE ONE (17:05)
[2023-08-06] MEDS ORDERED: HEPARIN SODIUM 1,000 UN/ML (10ML VL) MISCELLANE STA (17:08)
[2023-08-06] MEDS ORDERED: Phosphorus Replacement Protoco 1 EACH MISC MISCELLANE PRN (17:31)
[2023-08-06] MEDS ORDERED: Potassium Replacement Protocol 1 EACH MISC MISCELLANE PRN (17:31)
[2023-08-06] MEDS ORDERED: LACTATED RINGERS 1,000 ML IV SCH (17:31)
[2023-08-06] MEDS ORDERED: Magnesium Replacement Protocol 1 EACH MISC MISCELLANE PRN (17:31)
[2023-08-06] MEDS: CALCIUM ACETATE 667 MG TAB PO SCH (17:56)
--- NOTE | 2023-08-06 18:15 | P.PN ---
Subjective Progress Note Date: 08/06/23 Patient reporting significant fatigue and weakness. Found to be in tumor lysis, s/p 1 dose rasburicase. Had long discussion with family today with primary oncologist Dr. Mclain regarding TLS and need for dialysis. Pt was agreeable to proceed with dialysis with hopes this will be short term while kidneys recover. Will plan for transfer to ICU. Dr. White notified, consult placed to vascular surgery Objective - Vital Signs Vital signs: Vital Signs Temp 99.5 F 08/06/23 11:50 Pulse 94 08/06/23 11:50 Resp 18 08/06/23 11:50 BP 98/54 08/06/23 11:50 Pulse Ox 92 L 08/06/23 11:50 FiO2 Intake & Output 08/05/23 08/06/23 08/06/23 18:59 06:59 18:59 Intake Total 310 0 Output Total 50 Balance 260 0 Intake: Oral 0 Blood Product 310 Rc Irr As1 Unit 310 [id number] Output: Urine 50 Other: Voiding Method Urinal Indwelling Catheter Indwelling Catheter # Bowel Movements 1 - Constitutional General appearance: Present: average body habitus, mild distress - EENT Eyes: Present: EOMI ENT: Present: hearing grossly normal - Respiratory Details: breathing even and unlabored - Cardiovascular Details: skin warm and dry - Integumentary Integumentary: Present: pale - Musculoskeletal Musculoskeletal: Present: generalized weakness - Psychiatric Psychiatric: Present: A&O x's 3 - Labs CBC & Chem 7: 08/06/23 05:34 08/06/23 05:34 Labs: Abnormal Lab Results - Last 24 Hours (Table) 08/03/23 08/05/23 08/05/23 Range/Units 10:12 06:16 12:11 WBC (3.8-10.6) k/uL RBC (4.30-5.90) m/uL Hgb (13.0-17.5) gm/dL Hct (39.0-53.0) % MCV (80.0-100.0) fL MCH (25.0-35.0) pg RDW (11.5-15.5) % Plt Count (150-450) k/uL Lymphocytes # (1.0-4.8) k/uL Macrocytosis Sodium (137-145) mmol/L Chloride (98-107) mmol/L BUN (9-20) mg/dL Creatinine (0.66-1.25) mg/dL Glucose (74-99) mg/dL POC Glucose (mg/dL) (70-110) mg/dL Uric Acid 22.4 A* (3.7-8.7) mg/dL Calcium (8.4-10.2) mg/dL Phosphorus (2.5-4.5) mg/dL Methylmalonic Acid 0.72 H (<0.40) umol/L Crossmatch See Detail 08/06/23 08/06/23 08/06/23 Range/Units 05:34 05:34 16:36 WBC 3.6 L (3.8-10.6) k/uL RBC 2.32 L (4.30-5.90) m/uL Hgb 8.2 L (13.0-17.5) gm/dL Hct 24.1 L (39.0-53.0) % MCV 103.8 H D (80.0-100.0) fL MCH 35.4 H (25.0-35.0) pg RDW 18.7 H (11.5-15.5) % Plt Count 77 L (150-450) k/uL Lymphocytes # 0.5 L (1.0-4.8) k/uL Macrocytosis Marked A Sodium 132 L (137-145) mmol/L Chloride 96 L (98-107) mmol/L BUN 79 H (9-20) mg/dL Creatinine 4.54 H (0.66-1.25) mg/dL Glucose 108 H (74-99) mg/dL POC Glucose (mg/dL) 111 H (70-110) mg/dL Uric Acid 20.4 H* (3.7-8.7) mg/dL Calcium 7.9 L (8.4-10.2) mg/dL Phosphorus 5.5 H (2.5-4.5) mg/dL Methylmalonic Acid (<0.40) umol/L Crossmatch Assessment and Plan (1) Small cell carcinoma Current Visit: Yes Status: Acute Priority: High Code(s): C80.1 - MALIGNANT (PRIMARY) NEOPLASM, UNSPECIFIED SNOMED Code(s): 70908171743155979 (2) HAYLEE (acute kidney injury) Current Visit: Yes Status: Acute Priority: High Code(s): N17.9 - ACUTE KIDNEY FAILURE, UNSPECIFIED SNOMED Code(s): 55989738 (3) Dehydration Current Visit: Yes Status: Acute Priority: High Code(s): E86.0 - DEHYDRATION SNOMED Code(s): 16434277 (4) Intractable vomiting Current Visit: Yes Status: Acute Priority: High Code(s): R11.10 - VOMIT ING, UNSPECIFIED SNOMED Code(s): 115039427 (5) Adenocarcinoma of prostate Current Visit: Yes Status: Acute Priority: High Code(s): C61 - MALIGNANT NEOPLASM OF PROSTATE SNOMED Code(s): 377000774 (6) Tumor lysis syndrome Current Visit: Yes Status: Acute Priority: High Code(s): E88.3 - TUMOR LYSIS SYNDROME SNOMED Code(s): 499950290 Plan: HAYLEE -Creatinine 4.5 on today's labs, dialysis recommended but pt apprehensive about it -Continues on sodium bicarbonate per nephrology -Uric acid and phosphorus ordered to assess for tumor lysis given recent cycle 1 of lurbinectedin on 07/31/2023. -Discussed with his primary oncologist regarding the possibility of immunotherapy induced nephritis as he received atezolizumab within the past month -Trial of high-dose steroids of 1 to 2 mg/kg/day could be considered if no other etiology is identified Tumor lysis syndrome: -Worsening kidney function noted since admission. -TLS labs revealed uric acid 22.4. 1 dose rasburicase given. Repeat uric acid this morning was 20.4. 2nd dose rasburicase ordered -Received 1st cycle of Zepzelka on 07/31/23. TLS with solid tumors on 2nd line treatments is very rare -Will continue to monitor TLS labs daily Intractable vomiting -Reviewed case with Radiation Oncologist. Radiation field was lumbar scaral area. Based on the area radiated, this should not be related to pt current c/o. -Antiemetic freq adjusted -NSAIDs stopped -Increased IV PPI, added oral carafate -Pt on clear liquids. Reporting mild improvement in n/v, reporting increased appetite. Started on full liquid diet. -MRI brain negative for intracranial metastases -CT A/P no clear cause for vomiting. EGD will be held at this time, surgery team notified Metastatic prostate adenocarcinoma -Currently not on any treatment of the same. PSA has been being monitored Extensive stage small cell lung carcinoma -Completed 4 cycles of carbo/[employer]/tecentriq and one dose of maintenance dose t ecentriq. Unfortunately, recent disease progression. Prateekpzelka started and pt is s/p 1 treatment on 07/31/2023 Chemo induced bicytopenia -Hemoglobin 8.2, s/p 1 unit PRBCs, with platelets 77 on today's labs -Continue to monitor CBC daily -Transfuse for hemoglobin less than 7 and/or platelets less than 10,000 and/or bleeding Goals of care/disposition: -Had long discussion with family today with primary oncologist Dr. Mclain regarding TLS and need for dialysis. Pt was agreeable to proceed with dialysis with hopes this will be short term while kidneys recover. Will plan for transfer to ICU. Dr. White notified, consult placed to vascular surgery -CODE status discussed, pt wishes to be DNR/DNI, code status updated in EMR -Also discussed comfort cares measures. Patient stated that if kidney function does not acutely improve with dialysis in the short term, that he would want to continue on dialysis and would want to consider hospice/comfort care. We agreed that this would be reasonable if HAYLEE is not reversible. Will continue to follow Dr worrell: I have seen and examined pt, performed H&P, developed impression and plan of care. Discussed with dictator. Agree with documentation, dictated as a scribe.
--- NOTE | 2023-08-06 19:35 | OP ---
OPERATIVE REPORT DATE OF SERVICE : PREOPERATIVE DIAGNOSIS: Acute chronic renal failure. PROCEDURE PERFORMED: Ultrasound-guided 24 cm dialysis catheter, right femoral approach. DESCRIPTION OF PROCEDURE: Right groin was prepped and drapes applied in a sterile manner. 1% lidocaine infiltrated ultrasound-guided needle into the right common femoral vein. Micro and guidewire were passed and 4-Chadian dilator advanced on top of the guidewire without any resistance. Then we placed triple-lumen dialysis catheter, flushed with heparin saline hep-locked, secured with 3-0 nylon. Dressing applied. The patient tolerated the procedure well. MMODL / IJN: [id number] /
[2023-08-06] MEDS: ONDANSETRON 4 MG/2 ML VIAL IVP PRN (19:58)
[2023-08-06] MEDS: NOREPINEPHRINE 4 MG in SODIUM CHLORIDE 0.9% 250 ML IV SCH (20:30)
[2023-08-07] MEDS ORDERED: diphenhydrAMINE 25 MG CAP PO STA (01:40)
[2023-08-07 04:09] LABS: Anisocytosis Slight; Basophils % (A) 0 %; Eosinophils % (A) 1 %; HCT 24.3 % (39.0-53.0); Hypochromasia Slight; Lymphocytes # (A) 0.4 k/uL (1.0-4.8); Lymphocytes % (A) 23 %; MCH 34.7 pg (25.0-35.0); MCHC 33.1 g/dL (31.0-37.0); MCV 104.9 fL (80.0-100.0); Mean Platelet Volume 9.8; Monocytes % (A) 1 %; Neutrophils # (A) 1.3 k/uL (1.3-7.7); Neutrophils % (A) 73 %; RBC 2.31 m/uL (4.30-5.90); RDW 18.4 % (11.5-15.5); WBC 1.9 k/uL (3.8-10.6)
[2023-08-07 04:19] LABS: ALT 89 U/L (4-49); AST 213 U/L (17-59); African American GFR (CKD) 16 (>60 ml/min/1.73 sqM); Albumin 2.9 g/dL (3.5-5.0); Alkaline Phosphatase 162 U/L (38-126); Anion Gap 11 mmol/L; Blood Urea Nitrogen 65 mg/dL (9-20); Carbon Dioxide 25 mmol/L (22-30); Chloride 95 mmol/L (98-107); Glucose 95 mg/dL (74-99); Non-African American GFR(CKD) 14 (>60 ml/min/1.73 sqM); Phosphorus 5.6 mg/dL (2.5-4.5); Potassium 4.2 mmol/L (3.5-5.1); Sodium 131 mmol/L (137-145); Total Bilirubin 0.9 mg/dL (0.2-1.3); Total Protein 5.7 g/dL (6.3-8.2); Uric Acid 3.2 mg/dL (3.5-8.5)
[2023-08-07 04:47] LABS: Macrocytosis Marked; Platelet Count 56 k/uL (150-450)
[2023-08-07] MEDS: CALCIUM ACETATE 667 MG TAB PO SCH (06:09)
[2023-08-07] MEDS: SUCRALFATE 1 GM TAB PO SCH ×2 (06:10→14:05)
[2023-08-07 06:31] LABS: Hepatitis B Surface AB- Quant 3.5 mIU/mL; Hepatitis B Surface Antigen Nonreactive
[2023-08-07 06:33] LABS: Glucose,Whole Blood 98 mg/dL (70-110)
[2023-08-07 08:15] VITALS: TEMP 98.4
[2023-08-07] MEDS: PANTOPRAZOLE 40 MG/10 ML VIAL IVP SCH (08:24)
[2023-08-07] MEDS: SODIUM BICARBONATE TAB 650 MG TAB PO SCH (08:27)
[2023-08-07] MEDS: NOREPINEPHRINE 4 MG in SODIUM CHLORIDE 0.9% 250 ML IV SCH (09:46)
--- NOTE | 2023-08-07 10:43 | P.PN ---
Subjective Patient is seen in follow for acute kidney injury. Started on hemodialysis 08/06/2023. Currently on Levophed. Oliguric. Family present at bedside. Vital signs are stable. On Levophed. General: No acute distress. HEENT: Head exam is unremarkable. On nasal cannula. LUNGS: No audible rhonchi or wheezes. HEART: Rate and Rhythm are regular. ABDOMEN: Nontender. EXTREMITITES: 2+ edema. Objective - Vital Signs Vital signs: Vital Signs Temp 98.4 F 08/07/23 08:00 Pulse 93 08/07/23 09:30 Resp 23 08/07/23 09:30 BP 102/39 08/07/23 09:30 Pulse Ox 91 L 08/07/23 09:30 FiO2 Intake & Output 08/06/23 08/07/23 08/07/23 18:59 06:59 18:59 Intake Total 50 515.698 90.316 Output Total 0 645 20 Balance 50 -129.302 70.316 Intake: IV 5 .9NS 5 Intake, IV Titration 115.698 85.316 Amount Norepinephrine 4 mg In 115.698 85.316 Sodium Chloride 0.9% 250 ml @ 0.03 MCG/KG/MIN 11. 251 mls/hr IV .[id number] [facility] Rx#:[id number] Oral 50 Hemodialysis 400 Output: Urine 0 30 20 Hemodialysis 615 Other: Voiding Method Indwelling Catheter Indwelling Catheter - Labs CBC & Chem 7: 08/07/23 03:56 08/07/23 03:56 Labs: Abnormal Lab Results - Last 24 Hours (Table) 08/06/23 08/07/23 08/07/23 Range/Units 16:36 03:56 03:56 WBC 1.9 L (3.8-10.6) k/uL RBC 2.31 L (4.30-5.90) m/uL Hgb 8.0 L (13.0-17.5) gm/dL Hct 24.3 L (39.0-53.0) % MCV 104.9 H (80.0-100.0) fL RDW 18.4 H (11.5-15.5) % Plt Count 56 L (150-450) k/uL Lymphocytes # 0.4 L (1.0-4.8) k/uL Macrocytosis Marked A Sodium 131 L (137-145) mmol/L Chloride 95 L (98-107) mmol/L BUN 65 H (9-20) mg/dL Creatinine 3.95 H (0.66-1.25) mg/dL POC Glucose (mg/dL) 111 H (70-110) mg/dL Uric Acid 3.2 L (3.5-8.5) mg/dL Calcium 8.0 L (8.4-10.2) mg/dL Phosphorus 5.6 H (2.5-4.5) mg/dL AST 213 H (17-59) U/L ALT 89 H (4-49) U/L Alkaline Phosphatase 162 H (38-126) U/L Total Protein 5.7 L (6.3-8.2) g/dL Albumin 2.9 L (3.5-5.0) g/dL Assessment and Plan Plan: Assessment: 1. Acute kidney injury secondary to ATN secondary to hypovolemia from poor intake/vomiting and NSAIDs. Component of anemia. Concern for chemotherapy/immunotherapy-induced kidney injury. Also concern for tumor lysis syndrome although potassium has been normal and phosphorus was 4.8 dated 08/05/2023. Uric acid noted to be high at 22.4 and calcium low. No hydrone phrosis noted on CAT scan. Started on hemodialysis 08/06/2023 due to volume overload and oliguria. Creatinine 0.78 in May 2023. 2. Small cell lung cancer with liver metastasis as well as prostate cancer. Last chemotherapy on Thursday. Oncology following. 3. Metabolic acidosis secondary to acute kidney injury and IV fluids. Improved with bicarb drip. 4. Hyponatremia. Initially hypovolemic but now hypervolemic. 5. Anemia. Iron replete. s/p pRBC this admission. Also received IV DDAVP. 6. Coffee-ground emesis. Surgery following. CT of the abdomen and pelvis showed lymphadenopathy concerning for metastatic lymph nodes as well as lytic lesions. 7. Volume overload. 8. Hyperphosphatemia secondary to acute kidney injury, oliguria. Phosphorus was normal at 4.8 dated 08/05/2023. 9. Hyperuricemia. Possibly from tumor lysis syndrome. Received rasburicase x 2 doses. Plan: No response to IV Lasix. Started on hemodialysis 08/06/2023. Patient refused dialysis today. Had lengthy discussion with patient and his family present at bedside. They understand that the prognosis is quite guarded due to underlying malignancy. We discussed that dialysis would be as supportive measure if malignancy can be treated. At this time they're waiting to hear from the patient's oncologist and are leaning towards comfort measures.
[2023-08-07] MEDS: HYDROcodone/APAP 5-325MG 1 EACH TAB PO PRN (10:47)
[2023-08-07] MEDS: ONDANSETRON 4 MG/2 ML VIAL IVP PRN (10:52)
[2023-08-07 11:08] VITALS: BP 116/46; PULSE 94; RESP 22; BMI 29.4
[2023-08-07] MEDS ORDERED: MORPHINE SULFATE 4 MG/ML SYRINGE IVP PRN (11:37)
--- NOTE | 2023-08-07 12:19 | P.PN ---
Subjective Progress Note Date: 08/07/23 CHIEF COMPLAINT: Intractable vomiting HISTORY OF PRESENT ILLNESS: Patient with history of metastatic prostate cancer. Patient received palliative chemotherapy. Patient started hemodialysis yesterday. He did require transfer to the ICU for being hypotensive. Patient did decline hemodialysis this morning. EGD was held yesterday due to patient being unstable. Family and patient relating towards more of a comfort care hospice plan. Awaiting their final decision. PHYSICAL EXAM: VITAL SIGNS: Reviewed. GENERAL: no acute distress. ABDOMEN: Soft. Nondistended. Nontender. ASSESSMENT: 1. Intractable nausea and vomiting 2. Anemia PLAN: -EGD cancelled yesterday due to patient being unstable -Patient and family leaning towards comfort care and hospice measures. Awaiting their final decision. Physician Senior Oracle Applications Developer note has been reviewed by physician. Signing provider agrees with the documented findings, assessment, and plan of care. Objective - Vital Signs Vital signs: Vital Signs Temp 98.4 F 08/07/23 08:00 Pulse 93 08/07/23 09:30 Resp 23 08/07/23 09:30 BP 102/39 08/07/23 09:30 Pulse Ox 91 L 08/07/23 09:30 FiO2 Intake & Output 08/06/23 08/07/23 08/07/23 18:59 06:59 18:59 Intake Total 50 515.698 81.878 Output Total 0 645 20 Balance 50 -129.302 61.878 Intake: IV 5 .9NS 5 Intake, IV Titration 115.698 76.878 Amount Norepinephrine 4 mg In 115.698 76.878 Sodium Chloride 0.9% 250 ml @ 0.03 MCG/KG/MIN 11. 251 mls/hr IV .[id number] [facility] Rx#:[id number] Oral 50 Hemodialysis 400 Output: Urine 0 30 20 Hemodialysis 615 Other: Voiding Method Indwelling Catheter Indwelling Catheter - Labs CBC & Chem 7: 08/07/23 03:56 08/07/23 03:56 Labs: Abnormal Lab Results - Last 24 Hours (Table) 08/06/23 08/07/23 08/07/23 Range/Units 16:36 03:56 03:56 WBC 1.9 L (3.8-10.6) k/uL RBC 2.31 L (4.30-5.90) m/uL Hgb 8.0 L (13.0-17.5) gm/dL Hct 24.3 L (39.0-53.0) % MCV 104.9 H (80.0-100.0) fL RDW 18.4 H (11.5-15.5) % Plt Count 56 L (150-450) k/uL Lymphocytes # 0.4 L (1.0-4.8) k/uL Macrocytosis Marked A Sodium 131 L (137-145) mmol/L Chloride 95 L (98-107) mmol/L BUN 65 H (9-20) mg/dL Creatinine 3.95 H (0.66-1.25) mg/dL POC Glucose (mg/dL) 111 H (70-110) mg/dL Uric Acid 3.2 L (3.5-8.5) mg/dL Calcium 8.0 L (8.4-10.2) mg/dL Phosphorus 5.6 H (2.5-4.5) mg/dL AST 213 H (17-59) U/L ALT 89 H (4-49) U/L Alkaline Phosphatase 162 H (38-126) U/L Total Protein 5.7 L (6.3-8.2) g/dL Albumin 2.9 L (3.5-5.0) g/dL
--- NOTE | 2023-08-07 14:08 | P.DS ---
Providers Date of admission: 08/02/23 15:20 Expected date of discharge: 08/07/23 Attending physician: Wu Mclain Consults: 08/02/23 15:18 Consult Physician Routine Consulting Provider: Chet White Consult Reason/Comments: Kidney injury Do you want consulting provider notified?: Yes 08/03/23 08:48 Consult Physician Routine Consulting Provider: Devon Suarez Consult Reason/Comments: coffee ground emesis, eval for egd Do you want consulting provider notified?: Yes 08/06/23 13:34 Consult Physician Routine Consulting Provider: Tru Martin Consult Reason/Comments: temporary dialysis catheter Do you want consulting provider notified?: Yes 08/06/23 13:58 Consult Physician Routine Consulting Provider: Rama Fairbanks Consult Reason/Comments: ICU management Do you want consulting provider notified?: Already Contacted Primary care physician: Eliseo Lazo - Maria L Diagnosis(es) (1) Small cell carcinoma Current Visit: Yes Status: Acute Priority: High (2) HAYLEE (acute kidney injury) Current Visit: Yes Status: Acute Priority: High (3) Dehydration Current Visit: Yes Status: Acute Priority: High (4) Intractable vomiting Current Visit: Yes Status: Acute Priority: High (5) Adenocarcinoma of prostate Current Visit: Yes Status: Acute Priority: High (6) Tumor lysis syndrome Current Visit: Yes Status: Acute Priority: High Hospital Course: Patient condition and prognosis has been discussed in detail with patient and family, with primary oncologist Dr. Wu Mclain. Kidney function and uric acid did improve today after HD. However, pt reporting having a bad night with pain, weakness and confusion and states he would like to go onto hospice. Consult placed, spoke with SW and upper caser at [facility], will be seeing pt at hospital shortly. Pt and family updated Patient Condition at Discharge: Poor Plan - Discharge Summary Discharge Rx Participant: Yes New Discharge Prescriptions: No Action Pantoprazole Sodium [Protonix] 20 mg PO BID Ondansetron Odt [Zofran Odt] 4 mg PO TID PRN PRN Reason: Nausea Ketorolac [Toradol] 10 mg PO TID PRN PRN Reason: Pain traMADol HCL 50 mg PO BID PRN PRN Reason: Pain Temazepam [Restoril] 30 mg PO HS Ibuprofen [Motrin Ib] 400 - 600 mg PO Q8H PRN PRN Reason: Pain Or Fever > 100.5 Discharge Medication List Ibuprofen [Motrin Ib] 400 - 600 mg PO Q8H PRN 08/02/23 [History] Ketorolac [Toradol] 10 mg PO TID PRN 08/02/23 [History] Ondansetron Odt [Zofran Odt] 4 mg PO TID PRN 08/02/23 [History] Pantoprazole Sodium [Protonix] 20 mg PO BID 08/02/23 [History] Temazepam [Restoril] 30 mg PO HS 08/02/23 [History] traMADol HCL 50 mg PO BID PRN 08/02/23 [History] Follow up Appointment(s)/Referral(s): Eliseo Lazo DO [Primary Care Provider] - 1-2 days Discharge Disposition: DISCH TO [facility] Care Plan Goals (MU): Discharge to [facility] today at 5 pm
--- NOTE | 2023-08-07 15:22 | P.CNPUL ---
History of Present Illness Consult date: 08/07/23 Requesting physician: Adelaida Mclain Reason for consult: other (Transferred to ICU) Chief complaint: Intractable nausea and vomiting History of present illness: This is a 73-year-old white male, known history of metastatic prostate cancer and metastatic small cell lung cancer.T1cNx [place] 3+4=7 Adenocarcinoma of prostate. Treated with LHRH>XBRT+Brachytherapy, in June 2021, patient was found to have rising PSA and he was found to have positive pelvic lymph nodes for prostate cancer/metastatic. Patient was later found to have metastasis to the left scapula as well as multiple small lymph nodes. Patient was seen at the [facility] and he was placed on phase 3 clinical trial LHRH+Enzulutamide and experimental arm radioactive isotope treatment Completed 4 cycles of Carboplatinum+Etoposide+Tecentriq. However the patient continues to have disease progression and he received zepzulca and completed cycle 1 of Zepzelca on 07/31/23. He also received IV hydration in clinic and transfused 1 unit PRBCs. This time the patient was admitted back on 08/03/2023, mostly with intractable nausea and vomiting, fatigue, generalized weakness,CBC revealed WBC 5.5, hemoglobin 8.1, platelets 121,000. Creatinine 3.2, GFR 18, since admission, patient has been not showing any signs of recovery, and he developed worsening renal failure requiring hemodialysis catheter placement, and yesterday I was notified about the patient having relatively low blood pressure, and there was a concern that he may need hemodialysis and with low blood pressure I recommended admitting the patient to the ICU and he was placed on low dose norepinephrine. Mostly to support his blood pressure while he is receiving hemodialysis. Patient underwent uneventful hemodialysis yesterday, however today the patient is declining further hemodialysis, and I believe the patient seems to be more inclined to consider going home with home hospice. Patient has multiple constitutional symptoms, has not been eating for well for almost a week has not been sleeping well, he had generalized fatigue and at times intermittent confusion. His also developing worsening bipedal edema. Labs today showed WBC count of 1.9 hemoglobin is 8 sodium is 131 BUN is 65 creatinine 3.95, liver enzymes were noted to be a bit elevated. AST of 213 ALT 89 and alkaline phosphatase 162 Review of Systems Constitutional: Weakness fatigue malaise HEENT: Negative Pulmonary: Negative Cardiac: Negative GI: As noted in HPI patient presented with intractable nausea and vomiting Genitourinary: Negative Musculoskeletal weakness and fatigue Endocrine: Negative Hematologic: Negative Psychiatric: Negative Neurologic: Past Medical History Past Medical History: Cancer Additional Past Medical History / Comment(s): prostate CA dx radiation tx-last radiation-last tx Apr.,pericarditis approx 25 yrs ago, small cell lung/liver cancer--first dose of new chemo 07/31/23 History of Any Multi-Drug Resistant Organisms: None Reported Past Surgical History: Tonsillectomy Additional Past Surgical History / Comment(s): Plastic surgery right side of face at 6y.o. Past Anesthesia/Blood Transfusion Reactions: No Reported Reaction Additional Past Anesthesia/Blood Transfusion Reaction / Comment(s): no hx blood transfusion Past Psychological History: No Psychological Hx Reported Smoking Status: Former smoker Past Alcohol Use History: None Reported Additional Past Alcohol Use History / Comment(s): smokes cigars started smoking at approx age 23. quit smoking cigarettes approx 14 yrs ago-1 1/2 ppd Past Drug Use History: None Reported - Past Family History Mother Family Medical History: Cancer Additional Family Medical History / Comment(s): breast X2 Father Family Medical History: Cancer Additional Family Medical History / Comment(s): prostate Medications and Allergies Home Medications Medication Instructions Recorded Confirmed Type Ibuprofen [Motrin Ib] 400 - 600 mg PO Q8H PRN 08/02/23 08/02/23 History Ketorolac [Toradol] 10 mg PO TID PRN 08/02/23 08/02/23 History Ondansetron Odt [Zofran Odt] 4 mg PO TID PRN 08/02/23 08/02/23 History Pantoprazole Sodium [Protonix] 20 mg PO BID 08/02/23 08/02/23 History Temazepam [Restoril] 30 mg PO HS 08/02/23 08/02/23 History traMADol HCL 50 mg PO BID PRN 08/02/23 08/02/23 History Allergies Allergy/AdvReac Type Severity Reaction Status Date / Time shellfish derived [Shellfish] Allergy Rash/Hives Verified 08/02/23 15:55 dronabinol [From Marinol] AdvReac Nausea & Verified 08/02/23 15:55 Vomiting Physical Exam Vitals: Vital Signs Temp Pulse Pulse Resp BP BP Pulse Ox 01/05/24 11:00 94 22 116/46 92 L 08/07/23 10:30 96 24 100/40 89 L 08/07/23 10:00 94 25 H 111/44 90 L 08/07/23 09:30 93 23 102/39 91 L 08/07/23 09:00 95 22 104/45 92 L 08/07/23 08:30 96 25 H 115/51 08/07/23 08:00 98.4 F 96 22 110/48 92 L 08/07/23 07:45 98 23 116/54 92 L 08/07/23 07:30 98 19 117/47 91 L 08/07/23 07:15 98 16 102/46 91 L 08/07/23 07:00 96 23 117/44 91 L 08/07/23 06:45 96 25 H 103/50 92 L 08/07/23 06:30 93 17 105/41 92 L 08/07/23 06:15 94 17 107/39 91 L 08/07/23 06:00 96 16 112/42 93 L 08/07/23 05:30 92 19 98/38 90 L 08/07/23 05:15 93 20 112/45 94 L 08/07/23 05:00 98 16 108/41 92 L 08/07/23 04:45 98 25 H 108/51 91 L 08/07/23 04:30 97 18 105/56 91 L 08/07/23 04:15 95 23 110/53 90 L 08/07/23 04:00 98.2 F 97 21 104/59 93 L 08/07/23 03:17 93 18 99/43 91 L 08/07/23 03:00 96 21 96/75 91 L 08/07/23 02:45 98 14 121/45 91 L 08/07/23 02:30 94 19 109/46 94 L 08/07/23 02:15 92 22 109/46 91 L 08/07/23 02:00 96 11 L 107/48 92 L 08/07/23 01:45 97 24 95/39 91 L 08/07/23 01:30 96 21 99/41 91 L 08/07/23 01:15 92 18 96/39 90 L 08/07/23 01:00 95 20 106/62 89 L 08/07/23 00:45 96 20 104/48 91 L 08/07/23 00:30 95 18 107/53 90 L 08/07/23 00:15 92 16 99/45 89 L 08/07/23 00:00 93 17 102/45 92 L 08/06/23 23:45 94 14 100/46 92 L 08/06/23 23:32 97.5 F L 93 19 110/44 08/06/23 23:30 92 17 110/48 90 L 08/06/23 23:15 95 22 105/44 91 L 08/06/23 23:00 95 20 110/44 90 L 08/06/23 22:45 95 21 106/47 91 L 08/06/23 22:30 92 15 113/46 92 L 08/06/23 22:15 90 17 104/42 95 08/06/23 22:00 89 18 98/43 95 08/06/23 21:45 88 16 95/41 95 08/06/23 21:30 89 17 107/43 95 08/06/23 21:15 92 17 105/46 95 08/06/23 21:00 90 17 103/44 93 L 08/06/23 20:45 90 18 96/43 90 L 08/06/23 20:30 91 21 103/40 92 L 08/06/23 20:15 92 17 107/41 93 L 08/06/23 20:00 97.6 F 93 24 96/46 90 L 08/06/23 19:45 93 21 100/41 91 L 08/06/23 19:30 93 16 105/45 91 L 08/06/23 19:15 98 21 102/46 91 L 08/06/23 19:00 96 19 106/49 95 08/06/23 18:45 96 20 98/44 95 08/06/23 18:30 92 17 101/44 96 08/06/23 18:15 93 19 107/47 92 L 08/06/23 18:00 92 20 100/53 95 08/06/23 17:45 92 21 107/46 94 L 08/06/23 17:30 93 22 94/54 92 L 08/06/23 17:15 92 21 100/52 08/06/23 17:00 93 18 102/49 08/06/23 16:45 93 24 99/43 90 L 08/06/23 16:37 92 12 90 L Intake and Output 08/07/23 08/07/23 08/07/23 06:59 14:59 22:59 Intake Total 515.698 100.316 Output Total 615 20 Balance -99.302 80.316 Intake: IV 15 .9NS 15 Intake, IV Titration 115.698 85.316 Amount Norepinephrine 4 mg In 115.698 85.316 Sodium Chloride 0.9% 250 ml @ 0.03 MCG/KG/MIN 11. 251 mls/hr IV .[id number] [facility] Rx#:[id number] Hemodialysis 400 Output: Urine 0 20 Hemodialysis 615 Other: Voiding Method Indwelling Catheter Weight 98.43 kg Physical Exam: Revealed a 73-year-old white male pleasant in no distress on room air Head: Atraumatic, normocephalic. HEENT:[Neck is supple.] [No neck masses.] [No thyromegaly.] [No JVD.] Chest: [Clear throughout, no crackles, no rhonchi, no wheezes.] Cardiac Exam: [Normal S1 and S2, no S3 gallop, no murmur.] Abdomen: [Soft, nontender, no megaly, no rebound, no guarding, normal bowel sounds.] Extremities: [No clubbing, 2+ bipedal edema, no cyanosis.] Neurological Exam: [No focal neurologic deficit.] Alert and oriented 3 Psychiatric: Depressed mood, normal affect, normal mental status examination. Results - Laboratory Findings CBC and BMP: 08/07/23 03:56 08/07/23 03:56 PT/INR, D-dimer PT 11.3 sec (10.0-12.5) 08/02/23 13:54 INR 1.0 (<1.2) 08/02/23 13:54 Abnormal lab findings: Abnormal Labs 08/02/23 08/02/23 08/02/23 13:54 13:54 13:54 WBC RBC 2.59 L Hgb 8.8 L Hct 27.7 L MCV 107.2 H MCH MCHC RDW 17.5 H Plt Count 140 L Lymphocytes # 0.3 L Macrocytosis Marked A Sodium 133 L Chloride Carbon Dioxide 18 L Anion Gap BUN 58 H Creatinine 3.20 H Est GFR (CKD-EPI) Glucose POC Glucose (mg/dL) Uric Acid Calcium 8.3 L Phosphorus TIBC % Saturation Transferrin Ferritin AST 256 H ALT 122 H Alkaline Phosphatase 146 H Total Protein 6.1 L Albumin 3.0 L Vitamin B12 Methylmalonic Acid Urine Protein 2+ H Urine Glucose (UA) Trace H Urine Blood Trace H Urine WBC 12 H Amorphous Sediment Moderate H Urine Bacteria Rare H Hyaline Casts 7 H Urine Mucus Rare H Crossmatch 08/03/23 08/03/23 08/03/23 06:06 06:06 10:12 WBC RBC 2.30 L Hgb 8.1 L Hct 25.4 L MCV 110.6 H MCH 35.2 H MCHC RDW 17.9 H Plt Count 121 L Lymphocytes # 0.3 L Macrocytosis Marked A Sodium Chloride Carbon Dioxide 19.0 L Anion Gap 15.00 H BUN 57.9 H Creatinine 3.8 H Est GFR (CKD-EPI) 16 L Glucose POC Glucose (mg/dL) Uric Acid Calcium 8.2 L Phosphorus TIBC 138 L % Saturation 86.96 H Transferrin 98.3 L Ferritin 4929.0 H AST ALT Alkaline Phosphatase Total Protein Albumin Vitamin B12 1275.0 H Methylmalonic Acid Urine Protein Urine Glucose (UA) Urine Blood Urine WBC Amorphous Sediment Urine Bacteria Hyaline Casts Urine Mucus Crossmatch 08/03/23 08/04/23 08/04/23 10:12 05:28 05:28 WBC RBC 2.22 L Hgb 7.7 L Hct 24.4 L MCV 110.1 H MCH MCHC RDW 17.9 H Plt Count 110 L Lymphocytes # 0.5 L Macrocytosis Marked A Sodium Chloride Carbon Dioxide 16 L Anion Gap BUN 64 H Creatinine 3.38 H Est GFR (CKD-EPI) Glucose POC Glucose (mg/dL) Uric Acid Calcium 8.0 L Phosphorus TIBC % Saturation Transferrin Ferritin AST 225 H ALT 145 H Alkaline Phosphatase 144 H Total Protein 5.6 L Albumin 2.8 L Vitamin B12 Methylmalonic Acid 0.72 H Urine Protein Urine Glucose (UA) Urine Blood Urine WBC Amorphous Sediment Urine Bacteria Hyaline Casts Urine Mucus Crossmatch 08/05/23 08/05/23 08/05/23 06:16 06:16 06:16 WBC 4.43 L RBC 2.09 L Hgb 6.9 A* Hct 22.9 L MCV 109.6 H MCH 33.0 H MCHC 30.1 L RDW 19.8 H Plt Count 85 L Lymphocytes # Macrocytosis Sodium Chloride Carbon Dioxide 19.7 L Anion Gap 16.30 H BUN 69.0 H Creatinine 4.0 H Est GFR (CKD-EPI) 15 L Glucose 112 H POC Glucose (mg/dL) Uric Acid 22.4 A* Calcium 8.2 L Phosphorus TIBC % Saturation Transferrin Ferritin AST ALT Alkaline Phosphatase Total Protein Albumin Vitamin B12 Methylmalonic Acid Urine Protein Urine Glucose (UA) Urine Blood Urine WBC Amorphous Sediment Urine Bacteria Hyaline Casts Urine Mucus Crossmatch 08/05/23 08/06/23 08/06/23 12:11 05:34 05:34 WBC 3.6 L RBC 2.32 L Hgb 8.2 L Hct 24.1 L MCV 103.8 H D MCH 35.4 H MCHC RDW 18.7 H Plt Count 77 L Lymphocytes # 0.5 L Macrocytosis Marked A Sodium 132 L Chloride 96 L Carbon Dioxide Anion Gap BUN 79 H Creatinine 4.54 H Est GFR (CKD-EPI) Glucose 108 H POC Glucose (mg/dL) Uric Acid 20.4 H* Calcium 7.9 L Phosphorus 5.5 H TIBC % Saturation Transferrin Ferritin AST ALT Alkaline Phosphatase Total Protein Albumin Vitamin B12 Methylmalonic Acid Urine Protein Urine Glucose (UA) Urine Blood Urine WBC Amorphous Sediment Urine Bacteria Hyaline Casts Urine Mucus Crossmatch See Detail 08/06/23 08/07/23 08/07/23 16:36 03:56 03:56 WBC 1.9 L RBC 2.31 L Hgb 8.0 L Hct 24.3 L MCV 104.9 H MCH MCHC RDW 18.4 H Plt Count 56 L Lymphocytes # 0.4 L Macrocytosis Marked A Sodium 131 L Chloride 95 L Carbon Dioxide Anion Gap BUN 65 H Creatinine 3.95 H Est GFR (CKD-EPI) Glucose POC Glucose (mg/dL) 111 H Uric Acid 3.2 L Calcium 8.0 L Phosphorus 5.6 H TIBC % Saturation Transferrin Ferritin AST 213 H ALT 89 H Alkaline Phosphatase 162 H Total Protein 5.7 L Albumin 2.9 L Vitamin B12 Methylmalonic Acid Urine Protein Urine Glucose (UA) Urine Blood Urine WBC Amorphous Sediment Urine Bacteria Hyaline Casts Urine Mucus Crossmatch Assessment and Plan Assessment: Impression: Hypovolemic hypotension Dehydration secondary to intractable nausea and vomiting Metastatic adenocarcinoma of the prostate Small cell lung cancer, diagnosis from a liver biopsy Acute kidney injury requiring hemodialysis Intractable nausea and vomiting with dehydration Medical debility Recommendation: Discussed his condition with him and his at bedside, Patient seems to be inclined to proceed with comfort care measures, Patient is declining further hemodialysis and he will discuss this with the oncologist and radiological technologist. Patient will likely be discharged home to home hospice. Will follow as needed Time with Patient: Greater than 30
--- NOTE | 2023-08-11 21:18 | CDI ---
Documentation Clarification Form Date: From: Erica Kearney Phone: [phone] Admit Date: 08/02/2023 03:20:00 PM Patient Name: Lee Mcbride Visit Number: [id number] Discharge Date: 08/07/2023 05:00:00 PM ATTENTION: The Clinical Documentation Specialists (CDI) and [facility] Coding Staff appreciate your assistance in clarifying documentation. Please respond to the clarification below the line at the bottom and electronically sign. The CDI & [facility] Coding staff will review the response and follow-up if needed. Please note: Queries are made part of the Legal Health Record. If you have any questions, please contact the author of this message via ITS. Dr. Wu Mclain Your patient has an abnormal lab value: [insert lab value, date]. Please clarify if there is an additional diagnosis and/or clinical significance related to this value. History/Risk Factors: 73yo presented with weakness, he is currently on chemo for metastatic prostate cancer and per the ER record his last treatment was 07/31. He was admitted for acute kidney injury and dehydration. Pt required dialysis this admission. Clinical indicators: Per the H&P, the patient has prostate cancer w/ mets to the lymph nodes and L scapula. The pt completed cycle 1 of Zepzelca on 07/31 and also received IV fluid and 1u PRBC at that time. The patient and family decided to transition to hospice care. Labs: 08/02 WBC 4.8, Hgb 8.8, plt 140 1/1 WBC 5.5, Hgb 8.1, plt 121 1/3 WBC 4.43, Hgb 6., plt85 Treatment: IV fluid, 1u PRBC 1/3 Is there an additional diagnosis and/or clinical significance related to the above lab result/information? [ ] Pancytopenia due to antineoplastic chemotherapy [ ] Pancytopenia due to other etiology (please specify) [ ] No additional diagnosis/Not clinically significant [ ] Other, please specify [ ] Unable to determine (Template Last Revised: September 2020) MTDD
--- NOTE | 2023-08-24 11:06 | CDI ---
Documentation Clarification Form Date: 08/11/2023 09:18:00 PM From: Erica Kearney Phone: [phone] Admit Date: 08/02/2023 03:20:00 PM Patient Name: Lee Mcbride Visit Number: [id number] Discharge Date: 08/07/2023 05:00:00 PM ATTENTION: The Clinical Documentation Specialists (CDI) and [facility] Coding Staff appreciate your assistance in clarifying documentation. Please respond to the clarification below the line at the bottom and electronically sign. The CDI & [facility] Coding staff will review the response and follow-up if needed. Please note: Queries are made part of the Legal Health Record. If you have any questions, please contact the author of this message via ITS. Dr. Wu Mclain Your patient has an abnormal lab value: WBC 4.8, Hgb 8.8, plt 140 on 08/02. Please clarify if there is an additional diagnosis and/or clinical significance related to this value. History/Risk Factors: 73yo presented with weakness, he is currently on chemo for metastatic prostate cancer and per the ER record his last treatment was 07/31. He was admitted for acute kidney injury and dehydration. Pt required dialysis this admission. Clinical indicators: Per the H&P, the patient has prostate cancer w/ mets to the lymph nodes and L scapula. The pt completed cycle 1 of Zepzelca on 07/31 and also received IV fluid and 1u PRBC at that time. The patient and family decided to transition to hospice care. Labs: 08/02 WBC 4.8, Hgb 8.8, plt 140 1/1 WBC 5.5, Hgb 8.1, plt 121 1/3 WBC 4.43, Hgb 6., plt85 Treatment: IV fluid, 1u PRBC 1/3 Is there an additional diagnosis and/or clinical significance related to the above lab result/information? [ ] Pancytopenia due to antineoplastic chemotherapy [ ] Pancytopenia due to other etiology (please specify) [ ] No additional diagnosis/Not clinically significant [ ] Other, please specify [ ] Unable to determine (Template Last Revised: September 2020) MTDD
--- NOTE | 2023-08-25 11:53 | CDI ---
Documentation Clarification Form Date: 08/11/2023 09:18:00 PM From: Erica Kearney Phone: [phone] Admit Date: 08/02/2023 03:20:00 PM Patient Name: Lee Mcbride Visit Number: [id number] Discharge Date: 08/07/2023 05:00:00 PM ATTENTION: The Clinical Documentation Specialists (CDI) and [facility] Coding Staff appreciate your assistance in clarifying documentation. Please respond to the clarification below the line at the bottom and electronically sign. The CDI & [facility] Coding staff will review the response and follow-up if needed. Please note: Queries are made part of the Legal Health Record. If you have any questions, please contact the author of this message via ITS. Dr. Wu Mclain Your patient has an abnormal lab value: [insert lab value, date]. Please clarify if there is an additional diagnosis and/or clinical significance related to this value. History/Risk Factors: 73yo presented with weakness, he is currently on chemo for metastatic prostate cancer and per the ER record his last treatment was 07/31. He was admitted for acute kidney injury and dehydration. Pt required dialysis this admission. Clinical indicators: Per the H&P, the patient has prostate cancer w/ mets to the lymph nodes and L scapula. The pt completed cycle 1 of Zepzelca on 07/31 and also received IV fluid and 1u PRBC at that time. The patient and family decided to transition to hospice care. Labs: 08/02 WBC 4.8, Hgb 8.8, plt 140 1/1 WBC 5.5, Hgb 8.1, plt 121 1/3 WBC 4.43, Hgb 6., plt85 Treatment: IV fluid, 1u PRBC 1/3 Is there an additional diagnosis and/or clinical significance related to the above lab result/information? [ x] Pancytopenia due to antineoplastic chemotherapy [ ] Pancytopenia due to other etiology (please specify) [ ] No additional diagnosis/Not clinically significant [ ] Other, please specify [ ] Unable to determine (Template Last Revised: September 2020) MTDD
== END 2023-08-07 17:00 | disposition hospice, inpatient (51) | DRG 682 ==
LOC: EC 13:05 → 5NMEDONC 15:19 → OBSVTOIN 15:20 → 5NMEDONC 16:11 → 2SICU 08-06 16:06
PROVIDERS: ADMIT Internal Medicine Hematology & Oncology; ATTEND Internal Medicine Hematology & Oncology
DX: N17.0 Acute kidney failure with tubular necrosis (principal); D61.810 Antineoplastic chemotherapy induced pancytopenia; C34.90 Malignant neoplasm of unspecified part of unspecified bronchus or lung; C77.5 Secondary and unspecified malignant neoplasm of intrapelvic lymph nodes; C79.51 Secondary malignant neoplasm of bone; C78.7 Secondary malignant neoplasm of liver and intrahepatic bile duct; E87.1 Hypo-osmolality and hyponatremia; R19.7 Diarrhea, unspecified; R53.81 Other malaise; E11.22 Type 2 diabetes mellitus with diabetic chronic kidney disease; D63.1 Anemia in chronic kidney disease; Z51.5 Encounter for palliative care; Z66 Do not resuscitate; E83.39 Other disorders of phosphorus metabolism; E86.0 Dehydration; E86.1 Hypovolemia; E87.70 Fluid overload, unspecified; E88.3 Tumor lysis syndrome; F17.290 Nicotine dependence, other tobacco product, uncomplicated; I12.9 Hypertensive chronic kidney disease with stage 1 through stage 4 chronic kidney disease, or unspecified chronic kidney disease; N18.9 Chronic kidney disease, unspecified; R62.7 Adult failure to thrive; Z79.899 Other long term (current) drug therapy; Z91.013 Allergy to seafood; Z88.8 Allergy status to other drugs, medicaments and biological substances; Z85.46 Personal history of malignant neoplasm of prostate
CPT/HCPCS: 36415; 70551; 74176; 76770; 80048; 80053; 81001; 82607; 82728; 82746; 83540; 83550; 83605; 83735; 83921; 84100; 84484; 84550; 85025; 85027; 85610; 85730; 86706; 86850; 86900; 86901; 86920; 87086; 87340; 90935; 93005; 96360; 99285